=== PATIENT | female | born 1965 | race African-American/Black ===

== ENCOUNTER → 2017-07-08 | Outpatient (POV) | payer OTHER, SELFPAY | PROVIDERS: Visit Provider Podiatrist ==

== ENCOUNTER 2017-08-12 13:57 | Emergency (ER) | payer OTHER, SELFPAY | END 2017-08-12 16:49 | disposition home or self-care (01) | PROVIDERS: Emergency Provider Emergency Medicine; Family Provider Family Medicine; Visit Provider Emergency Medicine | DX: R11.2 Nausea with vomiting, unspecified (principal); K59.00 Constipation, unspecified; R51 Headache; E11.9 Type 2 diabetes mellitus without complications; I10 Essential (primary) hypertension; Z79.890 Hormone replacement therapy; Z79.84 Long term (current) use of oral hypoglycemic drugs; Z79.899 Other long term (current) drug therapy; E78.5 Hyperlipidemia, unspecified; Z79.891 Long term (current) use of opiate analgesic | CPT/HCPCS: 36415; 71010; 80053; 81001; 83605; 84484; 85025; 87040; 87086; 87275; 87276; 93005; 93041; 96365; 96375; 99284; J2405 ==

== ENCOUNTER → 2017-08-19 | Outpatient (POV) | payer OTHER, SELFPAY | PROVIDERS: Visit Provider Podiatrist ==

== ENCOUNTER 2017-09-21 18:32 | Emergency (ER) | payer OTHER, SELFPAY ==
[2017-09-21 19:02] VITALS: BP 106/63; PULSE 112; RESP 20; TEMP 37.7; O2SAT 97; BMI 32.9
--- NOTE | 2017-09-21 19:16 | HMH.EDUTC ---
[facility] Disposition Clinical Impression: Viral syndrome Disposition: Home, Self-Care Condition on Discharge: Good Instructions: DI for Nausea -- Adult, DI for Vomiting -- Adult, DI for Fever (Symptom) -- Adult Additional Instructions: * Monitor Temp. Tylenol and/or Ibuprofen as needed. ER if fever is no less than 101 despite alternating Tylenol and Ibuprofen * Encourage fluids, water, Gatorade, powerade, pedialyte if /toddler/or child * Warm salt water gargles for throat irritation *Warm fluids *Sore throat lozenges *Sleep elevated *humidifier or vaporizer Lots of rest Increase fluids, water, Gatorade, powerade ? Drink extra fluids with and between meals. If you have difficulty drinking, try very small amounts of water or suck on ice chips. ? Avoid fruit juices, as these do not replace minerals and can actually increase diarrhea. ? Children and adults can use sports drinks to replenish electrolytes. Younger children and infants should use products formulated for children, like oral rehydration solutions. ? Eat food in small amounts and let your stomach recover. ? Get lots of rest. You may feel tired or weak. Follow up with family doctor if symptoms worsen or fever does not go away tomorrow Prescriptions: Dextromethorphan Polistirex [Delsym] 10 ml PO Q12H PRN #200 jaspreet.er.12h PRN Reason: Cough Ondansetron [Zofran 4mg ODT] 4 mg PO Q8H PRN #20 tab.rapdis PRN Reason: Nausea And Vomiting Referrals: Luis Rivera MD [Primary Care Provider] - Forms: Work/School Release Time of Disposition: 19:58 Medical Decision Making - Medical Records Medical records reviewed: Yes: I reviewed the patient's medical records. Vital Signs: 09/21/17 19:02 Temperature 99.9 F H Temperature Source Oral Pulse Rate [Right] 112 H Respiratory Rate 20 Blood Pressure [Right Arm] 106/63 Blood Pressure Mean [Right Arm] 77 Blood Pressure Source [Right Arm] Automatic Cuff Blood Pressure Position [Right Arm] Sitting 02 Sat by Pulse Oximetry 97 Oxygen Delivery Method Room Air - Lab Data Lab Results 09/21/17 19:27: Influenza Type A Ag Negative, Influenza Type B Ag Negative - Fly Inquiry Pt receiving controlled substance: No Fly was queried for this patient: No - Reevaluation(s) Time: 19:55 (No vomiting since arrival) [facility] HPI - General Stated complaint: Fever,chills,vomiting Mode of Arrival: Ambulatory Source of Information: Patient Limitations: No Limitations Description of Symptoms (Recalled from Triage Doc. by RN): FEVER, BODY ACHES, VOMITING BEGAN LAST NIGHT HEENT Symptoms (Recalled from RN notes): Yes Resp Symptoms (Recalled from RN notes): No Skin Symptoms (Recalled from RN notes): No MS Symptoms (Recalled from RN notes): No Functional Status (Recalled from RN notes): N - History of Present Illness Provider Complaint: Patient states that she has been having flu like symptoms since yesterday State that she has been having fever, chills, and vomiting State that this morning her fever was 101.0 State that she took Tylenol and it helped to bring it down State that later on today her fever went back up and she had to take medication again for fever States that he nephew had the flu last week and she thinks she may have it too - Related Data Home Medications Medication Instructions Recorded Confirmed Atenolol [Atenolol 50mg Tab] 50 mg PO DAILY 09/21/17 09/21/17 Atorvastatin Calcium [Atorvastatin 20 mg PO DAILY 09/21/17 09/21/17 20mg Tab] Dapagliflozin Propanediol [Farxiga] 10 mg PO DAILY 09/21/17 09/21/17 Gabapentin [Gabapentin 300mg Cap] 300 mg PO DAILY 09/21/17 09/21/17 Lisinopril [Lisinopril 20mg Tab] 20 mg PO DAILY 09/21/17 09/21/17 Metformin HCl [Metformin 500mg 0 mg PO DAILY 09/21/17 09/21/17 Tablet] Previous Rx's Medication Instructions Recorded Dextromethorphan Polistirex 10 ml PO Q12H PRN #200 jaspreet.er.12h 09/21/17 [Delsym] Ondansetron [Zofran 4mg ODT] 4 mg PO Q8H PRN #20 ta
--- NOTE | 2017-09-21 19:23 | ED_ITS ---
[facility] Disposition Clinical Impression: Viral syndrome Disposition: Home, Self-Care Condition on Discharge: Good Instructions: DI for Nausea -- Adult, DI for Vomiting -- Adult, DI for Fever ( Symptom) -- Adult Additional Instructions: * Monitor Temp. Tylenol and/or Ibuprofen as needed. ER if fever is no less than 101 despite alternating Tylenol and Ibuprofen * Encourage fluids, water, Gatorade, powerade, pedialyte if infant/toddler/or child * Warm salt water gargles for throat irritation *Warm fluids *Sore throat lozenges *Sleep elevated *humidifier or vaporizer Lots of rest Increase fluids, water, Gatorade, powerade ? Drink extra fluids with and between meals. If you have difficulty drinking, try very small amounts of water or suck on ice chips. ? Avoid fruit juices, as these do not replace minerals and can actually increase diarrhea. ? Children and adults can use sports drinks to replenish electrolytes. Younger children and infants should use products formulated for children, like oral rehydration solutions. ? Eat food in small amounts and let your stomach recover. ? Get lots of rest. You may feel tired or weak. Follow up with family doctor if symptoms worsen or fever does not go away tomorrow Prescriptions: Dextromethorphan Polistirex [Delsym] 10 ml PO Q12H PRN #200 jaspreet.er.12h PRN Reason: Cough Ondansetron [Zofran 4mg ODT] 4 mg PO Q8H PRN #20 tab.rapdis PRN Reason: Nausea And Vomiting Referrals: Luis Rivera MD [Primary Care Provider] - Forms: Work/School Release Time of Disposition: 19:58 Medical Decision Making - Medical Records Medical records reviewed: Yes: I reviewed the patient's medical records. Vital Signs: 09/21/17 19:02 Temperature 99.9 F H Temperature Source Oral Pulse Rate [Right] 112 H Respiratory Rate 20 Blood Pressure [Right Arm] 106/63 Blood Pressure Mean [Right Arm] 77 Blood Pressure Source [Right Arm] Automatic Cuff Blood Pressure Position [Right Arm] Sitting 02 Sat by Pulse Oximetry 97 Oxygen Delivery Method Room Air - Lab Data Lab Results 09/21/17 19:27: Influenza Type A Ag Negative, Influenza Type B Ag Negative - Fly Inquiry Pt receiving controlled substance: No Fly was queried for this patient: No - Reevaluation(s) Time: 19:55 (No vomiting since arrival) [facility] HPI - General Stated complaint: Fever,chills,vomiting Mode of Arrival: Ambulatory Source of Information: Patient Limitations: No Limitations Description of Symptoms (Recalled from Triage Doc. by RN): FEVER, BODY ACHES, VOMITING BEGAN LAST NIGHT HEENT Symptoms (Recalled from RN notes): Yes Resp Symptoms (Recalled from RN notes): No Skin Symptoms (Recalled from RN notes): No MS Symptoms (Recalled from RN notes): No Functional Status (Recalled from RN notes): N - History of Present Illness Provider Complaint: Patient states that she has been having flu like symptoms since yesterday State that she has been having fever, chills, and vomiting State that this morning her fever was 101.0 State that she took Tylenol and it helped to bring it down State that later on today her fever went back up and she had to take medication again for fever States that he nephew had the flu last week and she thinks she may have it too - Related Data Home Medications Medication Instructions Recorded Confirmed Atenolol [Atenolol 50mg Tab] 50 mg PO DAILY 09/21/17 09/21/17 Atorva
[2017-09-21 19:51] LABS: UTC Influenza A Antigen Negative (Negative); UTC Influenza B Antigen Negative (Negative)
== END 2017-09-21 20:15 | disposition home or self-care (01) ==
PROVIDERS: Emergency Provider Nurse Practitioner; PCP Family Medicine
DX: B34.9 Viral infection, unspecified (principal); E10.9 Type 1 diabetes mellitus without complications; Z79.84 Long term (current) use of oral hypoglycemic drugs; Z79.899 Other long term (current) drug therapy
CPT/HCPCS: 87804; 99201

== ENCOUNTER → 2017-09-23 07:38 | Outpatient (CLI) | payer OTHER, SELFPAY ==
--- NOTE | 2017-09-23 07:43 | US_ITS ---
Ultrasound abdomen limited HISTORY: Fever and upper abdominal pain with vomiting ITS.REASON: UPPER ABD PAIN ORDERING PHYSICIAN: Cody Ulrich PATIENT AGE: 51 years COMPARISON: None FINDINGS: PANCREAS: Unremarkable. No obvious mass or abnormal fluid collection. No ductal dilatation LIVER: No focal liver lesions demonstrated. Homogeneous echogenicity. No intrahepatic biliary ductal dilatation evident RIGHT KIDNEY: Unremarkable. Normal size and echogenicity. No hydronephrosis GALLBLADDER: Gallbladder appears contracted with wall upper limits of normal at 3 mm. No stones, pericholecystic fluid, or biliary dilatation. IMPRESSION: Contracted gallbladder, no stones or other significant anomalies
[2017-09-23 12:22] LABS: Basophils % 0.6 % (0.1-2.0); Eosinophils % 0.3 % (0.1-12.0); Hematocrit 39.6 % (37.0-47.0); Hemoglobin 12.5 g/dL (12.2-16.2); Lymphocytes # 1.8 K/mm3 (0.7-4.5); Lymphocytes % 56.7 K/mm3 (10-50); Mean Corpuscular HGB Conc 31.5 g/dL (31.8-35.4); Mean Corpuscular Hemoglobin 24.8 pg (27.0-31.2); Mean Corpuscular Volume 78.8 fl (81-99); Mean Platelet Volume 8.3 fl (7.4-10.4); Monocytes # 0.3 K/mm3 (0.1-1.0); Neutrophils # 1.1 K/mm3 (1.8-7.8); Neutrophils % 34.3 % (37.0-80.0); Platelet Count 237 K/mm3 (142-424); Red Blood Count 5.02 M/mm3 (4.20-5.40); Red Cell Distribution Width 15.5 % (11.5-17.5); White Blood Count 3.2 K/mm3 (4.8-10.8)
[2017-09-23 12:25] LABS: MANUAL DIFFERENTIAL MANUAL DIFFERENTIAL (MANUAL DIFF)
[2017-09-23 13:16] LABS: Alanine Aminotransferase 32 U/L (12-78); Albumin Level 3.8 gm/dL (3.4-5.0); Alkaline Phosphatase 64 U/L (46-116); Aspartate Amino Transferase 28 U/L (15-37); Bilirubin,Total 0.7 mg/dL (0.2-1.0); Blood Urea Nitrogen 16 mg/dL (7-18); Calcium 8.5 mg/dL (8.5-10.1); Carbon Dioxide 29 mmol/L (21.0-32.0); Chloride 99 mmol/L (98-107); Creatinine,Serum 1.01 mg/dL (0.55-1.02); Estimated Glomerular Filt Rate 58 ml/min (>60); GFR (African American) 70 ML/MIN (>60); Glucose 108 mg/dL (74-106); Sodium 136 mmol/L (136-145); Total Protein,Serum 7.8 gm/dL (6.4-8.2)
[2017-09-23 13:42] LABS: Lymphocytes % 42 % (10-50); Monocytes % 19 % (2-9); Neutrophils % 39 % (42-76); Platelet Estimate Normal; RBC Morphology Normal; Total Cells Counted 100
== END ==
PROVIDERS: Nurse Practitioner Family; PCP Family Medicine; Visit Provider Physician Assistant Medical
DX: R10.10 Upper abdominal pain, unspecified (principal); R50.9 Fever, unspecified; R53.1 Weakness
CPT/HCPCS: 36415; 76705; 80053; 85007; 85025

== ENCOUNTER → 2017-09-29 16:31 | Outpatient (CLI) | payer OTHER, SELFPAY ==
[2017-09-29 16:51] LABS: Basophils % 0.7 % (0.1-2.0); Eosinophils % 1.5 % (0.1-12.0); Hematocrit 37.7 % (37.0-47.0); Hemoglobin 11.5 g/dL (12.2-16.2); Lymphocytes # 1.2 K/mm3 (0.7-4.5); Lymphocytes % 43.7 K/mm3 (10-50); Mean Corpuscular HGB Conc 30.4 g/dL (31.8-35.4); Mean Corpuscular Hemoglobin 24.1 pg (27.0-31.2); Mean Corpuscular Volume 79.3 fl (81-99); Mean Platelet Volume 8.2 fl (7.4-10.4); Monocytes # 0.1 K/mm3 (0.1-1.0); Neutrophils # 1.4 K/mm3 (1.8-7.8); Neutrophils % 49.1 % (37.0-80.0); Platelet Count 218 K/mm3 (142-424); Red Blood Count 4.76 M/mm3 (4.20-5.40); Red Cell Distribution Width 15.6 % (11.5-17.5); White Blood Count 2.8 K/mm3 (4.8-10.8)
[2017-09-29 19:15] LABS: Alanine Aminotransferase 50 U/L (12-78); Albumin Level 3.9 gm/dL (3.4-5.0); Alkaline Phosphatase 76 U/L (46-116); Anion Gap 9.2 mEq/L (5-15); Aspartate Amino Transferase 34 U/L (15-37); Bilirubin,Total 0.9 mg/dL (0.2-1.0); Blood Urea Nitrogen 11 mg/dL (7-18); Carbon Dioxide 33 mmol/L (21.0-32.0); Chloride 103 mmol/L (98-107); Creatinine,Serum 0.78 mg/dL (0.55-1.02); Estimated Glomerular Filt Rate 78 ml/min (>60); GFR (African American) 94 ML/MIN (>60); Globulin 3.9 gm/dl (1.3-3.2); Glucose 126 mg/dL (74-106); Potassium 4.2 mmoL/L (3.5-5.1); Sodium 141 mmol/L (136-145); Total Protein,Serum 7.8 gm/dL (6.4-8.2)
== END ==
PROVIDERS: PCP Family Medicine; Visit Provider Nurse Practitioner Family
DX: R50.9 Fever, unspecified (principal); R53.1 Weakness
CPT/HCPCS: 36415; 80053; 85025

== ENCOUNTER → 2017-10-07 16:24 | Outpatient (CLI) | payer OTHER, SELFPAY ==
[2017-10-07 16:34] LABS: Basophils % 0.6 % (0.1-2.0); Eosinophils # 0.1 K/mm3 (0.0-0.4); Eosinophils % 1.6 % (0.1-12.0); Hematocrit 38.9 % (37.0-47.0); Hemoglobin 11.7 g/dL (12.2-16.2); Lymphocytes # 2.4 K/mm3 (0.7-4.5); Lymphocytes % 54.6 K/mm3 (10-50); Mean Corpuscular HGB Conc 30.1 g/dL (31.8-35.4); Mean Corpuscular Hemoglobin 24.1 pg (27.0-31.2); Mean Platelet Volume 7.5 fl (7.4-10.4); Monocytes # 0.2 K/mm3 (0.1-1.0); Monocytes % 5.3 % (1.7-9.3); Neutrophils # 1.7 K/mm3 (1.8-7.8); Platelet Count 389 K/mm3 (142-424); Red Blood Count 4.86 M/mm3 (4.20-5.40); White Blood Count 4.3 K/mm3 (4.8-10.8)
[2017-10-07 16:39] LABS: MANUAL DIFFERENTIAL MANUAL DIFFERENTIAL (MANUAL DIFF)
[2017-10-07 19:19] LABS: Eosinophils % 2 % (0-3); Lymphocytes % 52 % (10-50); Monocytes % 4 % (2-9); Neutrophils % 38 % (42-76); Platelet Estimate Normal; Total Cells Counted 100
[2017-10-07 19:20] LABS: Hypochromasia 1+; Rouleaux 1+
[2017-10-09 16:26] LABS: Peripheral Smear Review Scanned Result
== END ==
PROVIDERS: PCP Family Medicine; Visit Provider Family Medicine
DX: D72.819 Decreased white blood cell count, unspecified (principal)
CPT/HCPCS: 36415; 85007; 85025

== ENCOUNTER → 2018-02-28 09:41 | Outpatient (CLI) | payer OTHER, SELFPAY ==
[2018-02-28 10:09] LABS: Basophils % 0.9 % (0.1-2.0); Eosinophils # 0.2 K/mm3 (0.0-0.4); Hematocrit 45.8 % (37.0-47.0); Hemoglobin 13.5 g/dL (12.2-16.2); Lymphocytes % 56.6 K/mm3 (10-50); Mean Corpuscular HGB Conc 29.4 g/dL (31.8-35.4); Mean Corpuscular Hemoglobin 23.5 pg (27.0-31.2); Mean Corpuscular Volume 79.8 fl (81-99); Mean Platelet Volume 7.9 fl (7.4-10.4); Monocytes # 0.2 K/mm3 (0.1-1.0); Monocytes % 5.4 % (1.7-9.3); Neutrophils # 1.1 K/mm3 (1.8-7.8); Neutrophils % 32.1 % (37.0-80.0); Platelet Count 284 K/mm3 (142-424); Red Blood Count 5.75 M/mm3 (4.20-5.40); Red Cell Distribution Width 15.6 % (11.5-17.5); White Blood Count 3.5 K/mm3 (4.8-10.8)
[2018-02-28 10:20] LABS: MANUAL DIFFERENTIAL MANUAL DIFFERENTIAL (MANUAL DIFF)
[2018-02-28 11:03] LABS: Alanine Aminotransferase 33 U/L (12-78); Albumin Level 3.9 gm/dL (3.4-5.0); Alkaline Phosphatase 113 U/L (46-116); Anion Gap 13.9 mEq/L (5-15); Aspartate Amino Transferase 25 U/L (15-37); Bilirubin,Total 0.9 mg/dL (0.2-1.0); Blood Urea Nitrogen 18 mg/dL (7-18); Calcium 9.2 mg/dL (8.5-10.1); Carbon Dioxide 29 mmol/L (21.0-32.0); Chloride 102 mmol/L (98-107); Creatinine,Serum 0.85 mg/dL (0.55-1.02); Estimated Glomerular Filt Rate 70 ml/min (>60); GFR (African American) 85 ML/MIN (>60); Globulin 4.1 gm/dl (1.3-3.2); Glucose 105 mg/dL (74-106); Potassium 3.9 mmoL/L (3.5-5.1); Sodium 141 mmol/L (136-145)
[2018-02-28 13:31] LABS: Eosinophils % 6 % (0-3); Lymphocytes % 51 % (10-50); Monocytes % 19 % (2-9); Neutrophils % 24 % (42-76); Total Cells Counted 100
[2018-02-28 13:33] LABS: Platelet Estimate Normal
[2018-02-28 13:34] LABS: Hypochromasia 2+; Microcytosis 1+
[2018-03-02 09:02] LABS: C difficile Toxins AB, EIA Negative (Negative)
== END ==
PROVIDERS: Visit Provider Nurse Practitioner Family
DX: R19.7 Diarrhea, unspecified (principal); R50.9 Fever, unspecified
CPT/HCPCS: 36415; 80053; 85007; 85025; 87045; 87324

== ENCOUNTER → 2018-04-12 17:20 | Outpatient (CLI) | payer OTHER, SELFPAY ==
[2018-04-12 17:27] LABS: MANUAL DIFFERENTIAL MANUAL DIFFERENTIAL (MANUAL DIFF)
[2018-04-12 17:57] LABS: Basophils % 0.6 % (0.1-2.0); Eosinophils # 0.1 K/mm3 (0.0-0.4); Eosinophils % 1.7 % (0.1-12.0); Hematocrit 39.1 % (37.0-47.0); Hemoglobin 12.1 g/dL (12.2-16.2); Lymphocytes # 2.2 K/mm3 (0.7-4.5); Lymphocytes % 50.6 K/mm3 (10-50); Mean Corpuscular Hemoglobin 24.4 pg (27.0-31.2); Mean Corpuscular Volume 78.9 fl (81-99); Monocytes # 0.3 K/mm3 (0.1-1.0); Monocytes % 5.9 % (1.7-9.3); Neutrophils # 1.8 K/mm3 (1.8-7.8); Neutrophils % 41.3 % (37.0-80.0); Platelet Count 282 K/mm3 (142-424); Red Blood Count 4.96 M/mm3 (4.20-5.40); Red Cell Distribution Width 17.4 % (11.5-17.5); White Blood Count 4.4 K/mm3 (4.8-10.8)
[2018-04-12 20:41] LABS: Eosinophils % 2 % (0-3); Lymphocytes % 51 % (10-50); Monocytes % 5 % (2-9); Neutrophils % 39 % (42-76); Platelet Estimate Normal; RBC Morphology Normal; Total Cells Counted 100
[2018-04-14 17:23] LABS: Peripheral Smear Review Scanned Result
== END ==
PROVIDERS: Visit Provider Family Medicine
DX: D72.819 Decreased white blood cell count, unspecified (principal)
CPT/HCPCS: 36415; 85007; 85014; 85018; 85048; 85049

== ENCOUNTER → 2018-06-15 16:23 | Outpatient (CLI) | payer OTHER, SELFPAY ==
--- NOTE | 2018-06-15 16:26 | NVE_ITS ---
Venous Exam Indications: 729.5 Pain in limb. IMPRESSIONS 1. There is no evidence of significant Reflux. 2. No evidence of deep or superficial vein thrombosis involving the right lower extremity Right lower extremity venous duplex evaluation. Doppler flow study including spectral analysis, color and mccann scale imaging. Location: Vascular laboratory. Patient status: Outpatient. CRITICAL FINDINGS - Reported to: tom - Read back and verified. - 06/15/18 0096 - None Tables: Venous flow and imaging: + +-------+ + Location Overall Flow properties + +-------+ + Right common femoral Patent Normal phasicity; spontaneous; normal augmentation; compressible + +-------+ + Right saphenofemoral junction Patent Compressible + +-------+ + Right profunda femoral Patent Compressible + +-------+ + Right femoral Patent Normal phasicity; spontaneous; normal augmentation; compressible + +-------+ + Right greater saphenous Patent Normal phasicity; spontaneous; normal augmentation; compressible + +-------+ + Right popliteal Patent Normal phasicity; spontaneous; normal augmentation; compressible + +-------+ + Right posterior tibial Patent Compressible + +-------+ + Right peroneal Patent Compressible + +-------+ + Right gastrocnemius Patent Compressible + +-------+ + Right soleal Patent Compressible + +-------+ + (Report amended ) Electronically signed by: Wil Barr [id number]
[2018-06-15 18:02] LABS: Basophils % 0.7 % (0.1-2.0); Eosinophils # 0.1 K/mm3 (0.0-0.4); Eosinophils % 1.2 % (0.1-12.0); Hematocrit 38.2 % (37.0-47.0); Hemoglobin 11.7 g/dL (12.2-16.2); Lymphocytes # 3.6 K/mm3 (0.7-4.5); Lymphocytes % 59.8 K/mm3 (10-50); Mean Corpuscular HGB Conc 30.6 g/dL (31.8-35.4); Mean Corpuscular Hemoglobin 25.3 pg (27.0-31.2); Mean Corpuscular Volume 82.6 fl (81-99); Mean Platelet Volume 7.1 fl (7.4-10.4); Monocytes # 0.2 K/mm3 (0.1-1.0); Monocytes % 3.9 % (1.7-9.3); Neutrophils # 2.1 K/mm3 (1.8-7.8); Neutrophils % 34.5 % (37.0-80.0); Platelet Count 296 K/mm3 (142-424); Red Blood Count 4.62 M/mm3 (4.20-5.40); Red Cell Distribution Width 16.9 % (11.5-17.5); White Blood Count 5.9 K/mm3 (4.8-10.8)
[2018-06-15 18:04] LABS: MANUAL DIFFERENTIAL MANUAL DIFFERENTIAL (MANUAL DIFF)
[2018-06-15 18:23] LABS: D-Dimer < 100 ng/mL (0-400)
[2018-06-15 18:59] LABS: Eosinophils % 3 % (0-3); Lymphocytes % 66 % (10-50); Monocytes % 4 % (2-9); Neutrophils % 27 % (42-76); Total Cells Counted 100
[2018-06-15 19:04] LABS: Hypochromasia 1+; Platelet Estimate Normal
== END ==
PROVIDERS: PCP Nurse Practitioner Family; Visit Provider Nurse Practitioner Family
DX: M79.604 Pain in right leg (principal); M79.89 Other specified soft tissue disorders; R23.8 Other skin changes
CPT/HCPCS: 36415; 85007; 85025; 85378; 93971

== ENCOUNTER → 2018-06-17 11:49 | Outpatient (CLI) | payer OTHER, SELFPAY ==
[2018-06-17 13:14] LABS: Alanine Aminotransferase 40 U/L (12-78); Alkaline Phosphatase 100 U/L (46-116); Anion Gap 10.5 mEq/L (5-15); Aspartate Amino Transferase 56 U/L (15-37); Bilirubin,Total 0.9 mg/dL (0.2-1.0); Blood Urea Nitrogen 19 mg/dL (7-18); Calcium 9.2 mg/dL (8.5-10.1); Carbon Dioxide 32 mmol/L (21.0-32.0); Chloride 103 mmol/L (98-107); Creatinine,Serum 0.97 mg/dL (0.55-1.02); Estimated Glomerular Filt Rate 60 ml/min (>60); GFR (African American) 73 ML/MIN (>60); Glucose 122 mg/dL (74-106); Magnesium 2.1 mg/dL (1.4-2.2); Potassium 4.5 mmoL/L (3.5-5.1); Sodium 141 mmol/L (136-145); Thyroid Stimulating Hormone 0.75 uIU/ml (0.358-3.740)
[2018-06-19 17:18] LABS: Antinuclear Antibodies, IFA Negative (.)
== END ==
PROVIDERS: PCP Nurse Practitioner Family; Visit Provider Nurse Practitioner Family
DX: M79.89 Other specified soft tissue disorders (principal); M79.604 Pain in right leg; R23.8 Other skin changes
CPT/HCPCS: 36415; 80053; 83735; 84443; 86038

== ENCOUNTER → 2018-07-17 18:37 | Outpatient (CLI) | payer OTHER, SELFPAY | PROVIDERS: Visit Provider Podiatrist | DX: B35.1 Tinea unguium (principal) | CPT/HCPCS: 87102; 87206; 87220 ==

== ENCOUNTER → 2018-07-18 09:52 | Outpatient (POV) | payer OTHER, SELFPAY | PROVIDERS: Visit Provider Dermatology | DX: Z00.00 Encounter for general adult medical examination without abnormal findings (principal) ==

== ENCOUNTER → 2018-08-10 14:36 | Outpatient (CLI) | payer SELFPAY ==
[2018-08-10 16:12] LABS: Erythrocyte Sedimentation Rate 22 mm/hr (0-30)
[2018-08-10 17:09] LABS: Uric Acid 4.2 mg/dL (2.6-7.2)
[2018-08-14 11:12] LABS: Anti-Centromere B Antibodies <0.2 AI (0.0-0.9); Anti-Jo-1 <0.2 AI (0.0-0.9); Anti-Smith Antibody <0.2 AI (0.0-0.9); Antichromatin Antibodies 0.3 AI (0.0-0.9); Antiscleroderma-70 Antibodies <0.2 AI (0.0-0.9); RNP Antibodies 0.4 AI (0.0-0.9); Sjogren's Anti-SS-A <0.2 AI (0.0-0.9); Sjogren's Anti-SS-B <0.2 AI (0.0-0.9)
[2018-08-14 14:58] LABS: Anti-DNA (DS) Ab Qn 4 IU/mL (0-9)
[2018-08-15 06:00] LABS: Anti-Cyclic Citrullinated Pept 6 units (0-19)
== END ==
PROVIDERS: Visit Provider Internal Medicine Adolescent Medicine
DX: M19.90 Unspecified osteoarthritis, unspecified site (principal)
CPT/HCPCS: 36415; 84550; 85651; 86038; 86200; 86225; 86235; 86431

== ENCOUNTER → 2018-08-28 09:17 | Outpatient (CLI) | payer OTHER, SELFPAY ==
--- NOTE | 2018-08-28 09:31 | XR_ITS ---
EXAM: XR lumbar spine min 4V HISTORY: ITS.REASON: BACK PAIN ORDERING PHYSICIAN: Cherelle Bryant PATIENT AGE: 52 years COMPARISON: None FINDINGS: There is straightening of the normal curvature in the thoracolumbar region suggesting muscle spasm. There are mild degenerative changes lower thoracic spine. All lumbar vertebrae appear intact and disc spaces are well maintained throughout. There is no pars defect. There is minor anterior and lateral ossific spurring at the L3-4 level and minor anterior ossific spurring at L5-S1 level. The SI joints are normal. . IMPRESSION: Findings suggesting muscle spasm along with minor degenerative changes lower lumbar spine
== END ==
PROVIDERS: PCP Nurse Practitioner Family; Visit Provider Nurse Practitioner Family
DX: M54.9 Dorsalgia, unspecified (principal)
CPT/HCPCS: 72110

== ENCOUNTER → 2018-12-08 13:20 | Outpatient (CLI) | payer BC, SELFPAY ==
--- NOTE | 2018-12-08 13:24 | XR_ITS ---
XR chest 2V HISTORY: ITS.REASON: HEMOPTYSIS ORDERING PHYSICIAN: Arsenio Schwartz MD PATIENT AGE: 53 years COMPARISON: 12/18/2017 FINDINGS: The cardiomediastinal silhouette and pulmonary vascularity are within normal limits. There are calcified granulomas in the left upper lobe. Right hemidiaphragm is slightly elevated. No lobar consolidation or collapse. No acute bony findings. IMPRESSION: No change with no acute finding.
== END ==
PROVIDERS: PCP Internal Medicine Adolescent Medicine; Visit Provider Internal Medicine Adolescent Medicine
DX: R04.2 Hemoptysis (principal)
CPT/HCPCS: 71046

== ENCOUNTER → 2018-12-29 17:12 | Outpatient (CLI) | payer BC, SELFPAY ==
[2018-12-29 17:51] LABS: Hemoglobin A1C 7.9 % (0.0-7.0)
[2018-12-29 18:21] LABS: Alanine Aminotransferase 24 U/L (12-78); Albumin Level 4.1 gm/dL (3.4-5.0); Alkaline Phosphatase 90 U/L (46-116); Anion Gap 9.6 mEq/L (5-15); Aspartate Amino Transferase 15 U/L (15-37); Bilirubin,Total 0.9 mg/dL (0.2-1.0); Blood Urea Nitrogen 13 mg/dL (7-18); Calcium 9.2 mg/dL (8.5-10.1); Carbon Dioxide 32 mmol/L (21.0-32.0); Chloride 101 mmol/L (98-107); Creatinine,Serum 0.94 mg/dL (0.55-1.02); Estimated Glomerular Filt Rate 62 ml/min (>60); GFR (African American) 75 ML/MIN (>60); Globulin 4.1 gm/dl (1.3-3.2); Glucose 128 mg/dL (74-106); Magnesium 1.9 mg/dL (1.4-2.2); Potassium 3.6 mmoL/L (3.5-5.1); Sodium 139 mmol/L (136-145); Thyroid Stimulating Hormone 1.14 uIU/ml (0.358-3.740); Total Protein,Serum 8.2 gm/dL (6.4-8.2)
== END ==
PROVIDERS: Visit Provider Internal Medicine Adolescent Medicine
DX: E11.9 Type 2 diabetes mellitus without complications (principal); Z79.84 Long term (current) use of oral hypoglycemic drugs
CPT/HCPCS: 36415; 80053; 83036; 83735; 84443

== ENCOUNTER → 2019-03-11 09:08 | Outpatient (CLI) | payer BC, SELFPAY ==
[2019-03-11 09:42] LABS: Alanine Aminotransferase 34 U/L (12-78); Albumin Level 3.6 gm/dL (3.4-5.0); Albumin/Globulin Ratio 1.1 (1.1-1.8); Alkaline Phosphatase 92 U/L (46-116); Anion Gap 11.1 mEq/L (5-15); Aspartate Amino Transferase 29 U/L (15-37); Bilirubin,Total 0.7 mg/dL (0.2-1.0); Blood Urea Nitrogen 14 mg/dL (7-18); Calcium 8.9 mg/dL (8.5-10.1); Carbon Dioxide 30 mmol/L (21.0-32.0); Chloride 103 mmol/L (98-107); Chol/HDL Ratio 1.7 (1-3.5); Cholesterol 177 mg/dL (140-200); Creatinine,Serum 0.79 mg/dL (0.55-1.02); Estimated Glomerular Filt Rate 76 ml/min (>60); GFR (African American) 92 ML/MIN (>60); Globulin 3.4 gm/dl (1.3-3.2); Glucose 122 mg/dL (74-106); HDL Cholesterol 106 mg/dL (29-89); LDL Cholesterol 62 mg/dL (0-130); Potassium 4.1 mmoL/L (3.5-5.1); Sodium 140 mmol/L (136-145); Triglycerides 44 mg/dL (30-200); VLDL Cholesterol 9 mg/dL (0-40)
[2019-03-11 09:59] LABS: Hemoglobin A1C 7.4 % (0.0-7.0)
[2019-03-11 11:12] LABS: Adenovirus F 40/41, stool Not Detected (NotDetected); Astrovirus Not Detected (NotDetected); Campylobacter Not Detected (NotDetected); Clostridium Difficile A/B, PCR Not Detected (NotDetected); Cryptosporidium Not Detected (NotDetected); Cyclospora Cayetanesis Not Detected (NotDetected); Entamoeba histolytica Not Detected (NotDetected); Enteroaggregative E coli Not Detected (NotDetected); Enterotoxigenic E coli Not Detected (NotDetected); Giardia lamblia Not Detected (NotDetected); Norovirus Not Detected (NotDetected); Plesimonas Shigalloides, PCR Not Detected (NotDetected); Rotavirus A Not Detected (NotDetected); Salmonella, PCR Not Detected (NotDetected); Sapovirus Not Detected (NotDetected); Shiga-like toxin E coli Not Detected (NotDetected); Shigella Enterovasive E coli Not Detected (NotDetected); Vibrio Cholerae Not Detected (NotDetected); Vibrio, PCR Not Detected (NotDetected); Yersinia Entercolitica, PCR Not Detected (NotDetected)
[2019-03-11 13:54] LABS: Enteropathogenic E coli Detected (NotDetected)
== END ==
PROVIDERS: PCP Internal Medicine Adolescent Medicine; Visit Provider Nurse Practitioner Family
DX: Z00.00 Encounter for general adult medical examination without abnormal findings (principal); E11.9 Type 2 diabetes mellitus without complications; A09 Infectious gastroenteritis and colitis, unspecified; Z79.84 Long term (current) use of oral hypoglycemic drugs
CPT/HCPCS: 36415; 80053; 80061; 83036; 87507

== ENCOUNTER → 2019-05-04 15:23 | Outpatient (CLI) | payer BC, SELFPAY ==
--- NOTE | 2019-05-04 15:38 | MM_ITS ---
PROCEDURE: MM DIG SCREENING MAMM BI W/CAD CLINICAL INDICATION: SCREENING There is no personal or family history of breast cancer. There has been previous bilateral breast reduction surgery. COMPARISON: SCREENING MAMMO DIGITAL W/ CAD from 07/15/2015 DMDB DIG MAMM-DX MERE from 05/14/2016 DMSB DIG MAMM-SCREEN MERE W/CAD from 07/08/2017 TECHNIQUE: Standard CC and MLO images were obtained. R2 CAD reviewed. FINDINGS: Scattered fibroglandular densities are seen throughout both breasts. There is a mole marker right breast. There are a few scattered benign-appearing microcalcifications in each breast. There is little if any post surgical scarring in either breast. There is no suspicious lesion in either breast and no suspicious microcalcifications. There is no suspicious lesion on the no suspicious microcalcifications. There are several small nodes in both axilla. IMPRESSION: Fibrofatty parenchyma with no suspicious lesions seen BI-RAD Category: 2 Benign Finding(s) FOLLOW-UP: 1YR 1 Year Follow-up (A letter has been sent to the patient regarding results of the study.) Dictated by: Dr. Jaya Brown MD 05/14/2019 17:[address] Jaya Brown MD in [place] 05/14/2019 17:13
== END ==
PROVIDERS: PCP Nurse Practitioner Family; Visit Provider Nurse Practitioner Family
DX: Z12.31 Encounter for screening mammogram for malignant neoplasm of breast (principal)
CPT/HCPCS: 77067

== ENCOUNTER 2019-07-10 17:30 | Outpatient (RCR) | payer BC, SELFPAY ==
--- NOTE | 2019-06-04 17:54 | HMH.PTOPEV ---
PT Outpatient Evaluation Rehab PT Outpatient Evaluation Start: 06/04/19 17:36 Freq: Status: Active Protocol: Document 06/04/19 17:37 [email or web address] (Rec: 06/04/19 17:54 WALLY [id number]) Electronically Signed By Colten Vázquez, PT 06/04/19 17:37 Outpatient Therapy Subjective History Subjective History This is the initial Physical Therapy evaluation for Claudia Jean. Pt is a 53 y/o female referred to PT w/ c/o cervico- thoracic pain and muscle spasms w/ c/io BUE/hand paresthesia. Pt reports she has had issue for years with shoulder and neck pain but reports spasms and paresthesia have been going on for ~ 6 months. Pt has past sx hx of lumbar Chief Complaint Pain,Spasms,Stiff,Paresthesia, Weakness Symptom Type Ache,Throb,Sharp,Dull,Stabbing ,Burning,Numbness,Tingling Symptoms Relieved By Prescription Meds Symptoms Aggravated By Physical Activity Prior Functional Limitations None Current Functional Limitations Lifting,Housework,Desk Work/ Reading,Sleeping,Recreation Activity Symptom Description Intermittent Level of pain today (0-10) 2 Pain scale - at its best (0-10) 0 Pain scale - at its worst (0-10) 7 Cervical Eval Palpation Cervical Muscles R Cervical Paraspinal,L Cervical Paraspinal,R Suboccipital,L Suboccipital,R CT Junction,L CT Junction,R Upper Trapezius,L Upper Trapezius Cervical/Thoracic Palpation Findings Tenderness,Trigger Point, Muscle Guarding Posture Head/C-Spine Posture Sitting Position Extended,Excess Extension Flexibility Deficits Upper Trapezius Muscle Length (R) Moderate Tightness,(L) Moderate Tightness Passive Joint Mobility Cervical PIVM Dec: R C2/3 L C2/3 R C3/4 L C3/4 R C4/5 L C4/5 R C5/6 L C5/6 R C6/7 L C6/7 R C7/T1
== END 2019-07-10 17:35 | disposition home or self-care (01) ==
LOC: PT 17:30
PROVIDERS: PCP Nurse Practitioner Family; Visit Provider Internal Medicine Adolescent Medicine
DX: M70.62 Trochanteric bursitis, left hip (principal)
CPT/HCPCS: 97010; 97012; 97014; 97110; 97140; 97163; G0283

== ENCOUNTER → 2019-07-17 17:38 | Outpatient (CLI) | payer BC, SELFPAY ==
[2019-07-17 18:57] LABS: Alanine Aminotransferase 28 U/L (12-78); Albumin Level 3.9 gm/dL (3.4-5.0); Albumin/Globulin Ratio 1.1 (1.1-1.8); Alkaline Phosphatase 84 U/L (46-116); Anion Gap 11.2 mEq/L (5-15); Aspartate Amino Transferase 21 U/L (15-37); Bilirubin,Total 0.6 mg/dL (0.2-1.0); Blood Urea Nitrogen 17 mg/dL (7-18); Carbon Dioxide 29 mmol/L (21.0-32.0); Chloride 104 mmol/L (98-107); Creatinine,Serum 0.74 mg/dL (0.55-1.02); Estimated Glomerular Filt Rate 82 ml/min (>60); GFR (African American) 99 ML/MIN (>60); Globulin 3.7 gm/dl (1.3-3.2); Glucose 99 mg/dL (74-106); Lipase 148 u/L (73-393); Potassium 4.2 mmoL/L (3.5-5.1); Sodium 140 mmol/L (136-145); Total Protein,Serum 7.6 gm/dL (6.4-8.2)
== END ==
PROVIDERS: Visit Provider Internal Medicine Adolescent Medicine
DX: R10.10 Upper abdominal pain, unspecified (principal)
CPT/HCPCS: 36415; 80053; 83690

== ENCOUNTER → 2019-07-25 07:47 | Outpatient (CLI) | payer BC, SELFPAY ==
--- NOTE | 2019-07-25 07:53 | US_ITS ---
PROCEDURE: US ABDOMEN LIMITED CLINICAL INDICATION: UPPER ABD PAIN Upper abdominal pain with nausea diarrhea COMPARISON: ABD US abdomen limited from 09/23/2017 FINDINGS: PANCREAS: Unremarkable. No obvious mass or abnormal fluid collection. No ductal dilatation LIVER: No focal liver lesions demonstrated. Homogeneous echogenicity. No intrahepatic biliary ductal dilatation evident. There is appropriate direction of blood flow within a non dilated portal vein RIGHT KIDNEY: Unremarkable. Normal size and echogenicity. No hydronephrosis GALLBLADDER: No gallstones, gallbladder wall thickening, pericholecystic fluid, or biliary dilatation. IMPRESSION: Unremarkable limited abdominal ultrasound as detailed above disc Dictated by: Wil Barr MD 07/25/2019 13:06 Electronically signed by Wil Barr MD in [place] 07/25/2019 13:06
== END ==
PROVIDERS: PCP Internal Medicine Adolescent Medicine; Visit Provider Internal Medicine Adolescent Medicine
DX: R10.11 Right upper quadrant pain (principal)
CPT/HCPCS: 76705

== ENCOUNTER → 2019-09-05 07:03 | Outpatient (CLI) | payer BC, SELFPAY ==
[2019-09-05 08:14] LABS: Anion Gap 11.8 mEq/L (5-15); Blood Urea Nitrogen 13 mg/dL (7-18); Calcium 8.6 mg/dL (8.5-10.1); Carbon Dioxide 29 mmol/L (21.0-32.0); Chloride 104 mmol/L (98-107); Estimated Glomerular Filt Rate 75 ml/min (>60); GFR (African American) 91 ML/MIN (>60); Glucose 139 mg/dL (74-106); Potassium 3.8 mmoL/L (3.5-5.1); Sodium 141 mmol/L (136-145)
[2019-09-05 09:07] LABS: Hemoglobin A1C 7.6 % (0.0-7.0)
== END ==
PROVIDERS: Visit Provider Internal Medicine Adolescent Medicine
DX: E11.9 Type 2 diabetes mellitus without complications (principal); Z79.84 Long term (current) use of oral hypoglycemic drugs
CPT/HCPCS: 36415; 80048; 83036; 83735

== ENCOUNTER 2019-09-26 17:30 | Outpatient (RCR) | payer BC, SELFPAY ==
--- NOTE | 2019-09-11 17:57 | HMH.PTOPEV ---
PT Outpatient Evaluation Rehab PT Outpatient Evaluation Start: 09/11/19 17:06 Freq: Status: Active Protocol: Document 09/11/19 17:06 [email or web address] (Rec: 09/11/19 17:57 JIM [id number]) Electronically Signed By Colten Vázquez PT 09/11/19 17:06 Outpatient Therapy Subjective History Subjective History This is the initial Physical Therapy evaluation for Claudia Gallardo. Pt is a 53 y/o female referred to PT for c/o BLE leg cramps and pain. Pt reports she had discectomy [id number] for HNP w/ R side S&S. Pt reports she continued to have pain and paresthesia and in 2015 had sx to remove scar tissue. Pt reports she has had intermittant leg cramps and pain since first surgery. Pt is also diabetic w/ neuropathy . Chief Complaint Pain,Spasms Symptom Type Sharp,Burning,Tingling Symptoms Relieved By Prescription Meds Symptoms Aggravated By Bending/Stooping,Physical Activity,Twisting,Lifting Prior Functional Limitations None Current Functional Limitations Lifting,Housework,Driving, Sleeping,Squatting,Recreation Activity,Walking Symptom Description Intermittent Level of pain today (0-10) 0 Pain scale - at its best (0-10) 0 Pain scale - at its worst (0-10) 9 Lumbopelvic Eval Posture Lumbar Spine Posture Standing Position Flattened Assistive device Assistive Devices None / NA Palapation tenderness bilateral lumbar spinal tenderness Yes paraspinal tenderness Yes buttock tenderness No Accessory Movement L3 bilateral L4 bilateral L5 bilateral Range of Motion Lumbar Spine Active Flexion Range of 90 Motion (degrees) Lumbar Spine Active Extension Range of 0 Motion (degrees) Left Lumbar Spine Lateral Flexion Active 20 Range of Motion (degrees) Right Lumbar Spine Lateral Flexion 5 Active Range of Motion (degrees) Lumbar Spine ROM Limitations Soft Tissue Tightness,Pain DTR Rt Patellar 1+ Lt Patellar 1+ Special Tests Forward Bending Test- Sitting Positive Right Sciatic Nerve Tension Test Positive Right Unilateral Straight Leg Raise (Lasegue) Positive Right Test Lumbar Long A
== END 2019-09-26 17:35 | disposition home or self-care (01) ==
LOC: PT 17:30
PROVIDERS: PCP Internal Medicine Adolescent Medicine; Visit Provider Internal Medicine Adolescent Medicine
DX: M70.62 Trochanteric bursitis, left hip (principal); R25.2 Cramp and spasm
CPT/HCPCS: 97110; 97140; 97163

== ENCOUNTER → 2019-12-13 16:23 | Outpatient (CLI) | payer BC, SELFPAY ==
[2019-12-13 17:44] LABS: Hemoglobin A1C 6.4 % (4.0-6.0)
== END ==
PROVIDERS: Visit Provider Internal Medicine Adolescent Medicine
DX: E11.9 Type 2 diabetes mellitus without complications (principal); Z79.84 Long term (current) use of oral hypoglycemic drugs
CPT/HCPCS: 36415; 83036

== ENCOUNTER → 2020-03-27 12:17 | Outpatient (CLI) | payer BC, SELFPAY ==
[2020-03-27 12:42] LABS: Basophils % 0.5 % (0.1-2.0); Eosinophils # 0.1 K/mm3 (0.0-0.4); Eosinophils % 1.2 % (0.1-12.0); Hematocrit 37.1 % (37.0-47.0); Hemoglobin 11.9 g/dL (12.2-16.2); Lymphocytes # 2.5 K/mm3 (0.7-4.5); Lymphocytes % 51.2 % (10-50); Mean Corpuscular Volume 81.3 fl (81-99); Mean Platelet Volume 8.1 fl (7.4-10.4); Monocytes # 0.2 K/mm3 (0.1-1.0); Neutrophils # 2.1 K/mm3 (1.8-7.8); Neutrophils % 43.1 % (37.0-80.0); Platelet Count 290 K/mm3 (142-424); Red Blood Count 4.57 M/mm3 (4.20-5.40); Red Cell Distribution Width 15.8 % (11.5-17.5); White Blood Count 4.8 K/mm3 (4.8-10.8)
[2020-03-27 12:46] LABS: MANUAL DIFFERENTIAL MANUAL DIFFERENTIAL (MANUAL DIFF)
[2020-03-27 13:11] LABS: Chloride 99 mmol/L (98-107); Hemoglobin A1C 6.7 % (4.0-6.0); Potassium 4.3 mmoL/L (3.5-5.1); Sodium 138 mmol/L (136-145)
[2020-03-27 13:13] LABS: Alanine Aminotransferase 19 U/L (12-78); Alkaline Phosphatase 89 U/L (38-126); Aspartate Amino Transferase 29 U/L (14-36); Bilirubin,Total 0.9 mg/dl (0.2-1.3); Blood Urea Nitrogen 17 mg/dl (7-17); Estimated Glomerular Filt Rate 75 ml/min (>60); GFR (African American) 90 ML/MIN (>60)
[2020-03-27 13:14] LABS: Albumin Level 4.4 g/dl (3.5-5.0); Albumin/Globulin Ratio 1.4 (1.1-1.8); Anion Gap 13.3 mEq/L (5-15); Calcium 9.7 mg/dl (8.4-10.2); Carbon Dioxide 30 mmol/L (22.0-30.0); Globulin 3.2 g/dL (1.3-3.2); Glucose 99 mg/dl (74-100); Total Protein,Serum 7.6 g/dl (6.3-8.2)
[2020-03-27 14:00] LABS: Eosinophils % 2 % (0-3); Lymphocytes % 57 % (10-50); Monocytes % 6 % (2-9); Neutrophils % 35 % (42-76); Total Cells Counted 100
[2020-03-27 14:01] LABS: Platelet Estimate Normal; RBC Morphology Normal
== END ==
PROVIDERS: Visit Provider Internal Medicine Adolescent Medicine
DX: I10 Essential (primary) hypertension (principal); E11.9 Type 2 diabetes mellitus without complications; Z79.84 Long term (current) use of oral hypoglycemic drugs
CPT/HCPCS: 36415; 80053; 83036; 85007; 85025

== ENCOUNTER → 2020-05-16 16:53 | Outpatient (CLI) | payer BC, SELFPAY ==
--- NOTE | 2020-05-16 16:57 | MM_ITS ---
PROCEDURE: MM DIG SCREENING MAMM BI W/CAD Digital Breast Tomosynthesis Included CLINICAL INDICATION: SCREENING There is no personal or family history of breast cancer. There has been previous breast reduction surgery bilaterally. COMPARISON: MG DMDB DIG MAMM-DX MERE from 05/14/2016 CR,MG DMSB DIG MAMM-SCREEN MERE W/CAD from 07/08/2017 MG MM DIG SCREENING MAMM BI W/CAD from 05/04/2019 TECHNIQUE: Standard CC and MLO images and 3D Tomosynthesis was obtained. R2 CAD reviewed. FINDINGS: Prominent diffuse fibroglandular densities are seen throughout both breasts. There is no significant post surgical scarring in either breast. There is a mole marker right breast and there are couple of benign-appearing calcifications right breast. There are few benign-appearing microcalcifications left breast as well. Fabian images are most helpful in this type of diffusely dense and heterogenic parenchymal pattern. There are couple of microcalcifications inner quadrant left breast just slightly deep and medial to the nipple. These are not present on the previous mammogram 05/04/2019. There are asymmetric glandular elements at this location as well. Recommend the patient return for spot compression magnification views and ultrasound for additional evaluation. IMPRESSION: Diffusely dense and heterogenic parenchymal pattern with new microcalcifications left breast BI-RAD Category: 0 Need Additional Imaging Evaluation FOLLOW-UP: IMM Immediate Follow-up Recommended (A letter has been sent to the patient regarding results of the study.) Dictated by: Dr. Jaya Brown MD 05/21/2020 08:08 Dr. Jaya Brown MD in [place] 05/21/2020 08:08
== END ==
PROVIDERS: PCP Internal Medicine Adolescent Medicine; Visit Provider Internal Medicine Adolescent Medicine
DX: Z12.31 Encounter for screening mammogram for malignant neoplasm of breast (principal)
CPT/HCPCS: 77063; 77067

== ENCOUNTER → 2020-05-28 13:31 | Outpatient (CLI) | payer BC, SELFPAY ==
--- NOTE | 2020-05-28 13:40 | US_ITS ---
PROCEDURE: MM DIG MAMM DX UNILAT LT CAD Digital Breast Tomosynthesis Included CLINICAL INDICATION: ABN MAMM COMPARISON: MG SCREENING MAMMO DIGITAL W/ CAD from 07/15/2015 CR,MG DMSB DIG MAMM-SCREEN MERE W/CAD from 07/08/2017 MG MM DIG SCREENING MAMM BI W/CAD from 05/04/2019 MG MM DIG SCREENING MAMM BI W/CAD from 05/16/2020 US US BREAST LT COMPLETE from 05/28/2020 TECHNIQUE: Mag views, problem solving views, and left breast ultrasound FINDINGS: The previously noted small cluster of calcifications are skin calcifications. No suspicious microcalcifications are evident. Left breast ultrasound: No solid or cystic lesions are evident. The areas of nodularity in the upper left breast are not demonstrated on ultrasound and may represent areas of fibroglandular tissue. Small nodes are also present. IMPRESSION: Calcifications in the left breast represent skin calcifications. Recommend six-month follow-up regarding the nodularity in the left breast without sonographic correlate. BI-RAD Category: 3 Probably Benign Finding Short Term Follow-up FOLLOW-UP: 6M 6Month Follow-up (A letter has been sent to the patient regarding results of the study.) Dictated by: Wil Barr MD 06/04/2020 13:50 Wil Barr MD in [place] 06/04/2020 13:50
== END ==
PROVIDERS: PCP Internal Medicine Adolescent Medicine; Visit Provider Internal Medicine Adolescent Medicine
DX: R92.8 Other abnormal and inconclusive findings on diagnostic imaging of breast (principal)
CPT/HCPCS: 76641; 77061; 77065; G0279

== ENCOUNTER → 2020-06-11 17:20 | Outpatient (CLI) | payer BC, SELFPAY | PROVIDERS: Visit Provider Nurse Practitioner | DX: B35.1 Tinea unguium (principal) | CPT/HCPCS: 87102; 87206; 87220 ==

== ENCOUNTER → 2020-06-24 07:37 | Outpatient (CLI) | payer BC, SELFPAY ==
[2020-06-24 08:32] LABS: Chloride 103 mmol/L (98-107); Potassium 4.4 mmoL/L (3.5-5.1); Sodium 140 mmol/L (136-145)
[2020-06-24 08:35] LABS: Alanine Aminotransferase 18 U/L (12-78); Albumin Level 4.3 g/dl (3.5-5.0); Albumin/Globulin Ratio 1.3 (1.1-1.8); Alkaline Phosphatase 76 U/L (38-126); Anion Gap 11.4 mEq/L (5-15); Aspartate Amino Transferase 30 U/L (14-36); Bilirubin,Total 0.7 mg/dl (0.2-1.3); Blood Urea Nitrogen 15 mg/dl (7-17); Carbon Dioxide 30 mmol/L (22.0-30.0); Estimated Glomerular Filt Rate 65 ml/min (>60); GFR (African American) 79 ML/MIN (>60); Globulin 3.3 g/dL (1.3-3.2); Total Protein,Serum 7.6 g/dl (6.3-8.2)
[2020-06-24 08:36] LABS: Calcium 9.5 mg/dl (8.4-10.2); Glucose 110 mg/dl (74-100)
[2020-06-24 10:47] LABS: Hemoglobin A1C 6.2 % (4.0-6.0)
== END ==
PROVIDERS: Visit Provider Internal Medicine Adolescent Medicine
DX: E11.9 Type 2 diabetes mellitus without complications (principal)
CPT/HCPCS: 36415; 80053; 83036

== ENCOUNTER → 2020-07-01 07:43 | Outpatient (CLI) | payer BC, SELFPAY ==
--- NOTE | 2020-07-01 | XR_ITS ---
PROCEDURE: XR HIP LT 2-3V W/PELVIS CLINICAL INDICATION: PAIN COMPARISON: CR XR HIP RT 2-3V W/PELVIS from 07/01/2020 FINDINGS: No fracture or dislocation is evident. There is minor asymmetrical joint space narrowing and minor spurring of the greater trochanter. There are no soft tissue calcifications. The left SI joint and symphysis pubis appear normal. IMPRESSION: Minor osteoarthritic changes left hip Dictated by: Dr. Jaya Brown MD 07/01/2020 08:19 Dr. Jaya Brown MD in [place] 07/01/2020 08:19
--- NOTE | 2020-07-01 | XR_ITS ---
PROCEDURE: XR HIP RT 2-3V W/PELVIS CLINICAL INDICATION: PAIN COMPARISON: Left hip same date FINDINGS: No fracture or dislocation is evident. There is minor asymmetrical joint space narrowing. There is moderate spurring of the roof of the acetabulum with a small osteophytic spur from the roof of the acetabulum by approximately 1 mm. Both SI joints appear normal in symphysis pubis is normal. IMPRESSION: Minor osteoarthritic change right hip Dictated by: Dr. Jaya Brown MD 07/01/2020 08:21 Dr. Jaya Brown MD in [place] 07/01/2020 08:21
== END ==
PROVIDERS: PCP Internal Medicine Adolescent Medicine; Visit Provider Internal Medicine Adolescent Medicine
DX: M25.552 Pain in left hip (principal); M25.551 Pain in right hip
CPT/HCPCS: 73502

== ENCOUNTER → 2020-09-03 07:32 | Outpatient (CLI) | payer BC, SELFPAY ==
[2020-09-03 09:41] LABS: Coronavirus 19 IgG Antibody Negative (Negative); Coronavirus 19 IgM Antibody Negative (Negative)
== END ==
PROVIDERS: Visit Provider Internal Medicine Gastroenterology
DX: Z01.812 Encounter for preprocedural laboratory examination (principal)
CPT/HCPCS: 36415; 86328

== ENCOUNTER 2020-09-05 10:02 | Day surgery (SDC) | payer BC, SELFPAY ==
[2020-08-25 14:27] VITALS: BMI 33.0
[2020-09-05 10:29] VITALS: BP 152/97; PULSE 85; RESP 18; TEMP 36.4; O2SAT 97
[2020-09-05 10:45] LABS: POC Glucose,Bedside 95 (70-110)
--- NOTE | 2020-09-05 11:34 | HMH.PROC ---
[facility] Procedure Note Procedure Note:: Colonoscopy Procedure Report: Colonoscopy Endoscopist: Murtaza Ocampo II, MD Referring physician: Arsenio Schwartz MD Date of Procedure: September 05, 2020 Equipment: Olympus 180 variable stiffness pediatric colonoscope Sedation: MAC sedation Indication: Mrs. Jean is a 54-year-old female who is here for screening/surveillance colonoscopy. She did have a colonoscopy 5 years ago at which time polyps were removed ([facility]). She reports no abdominal pain, weight loss, change in her bowel habits or rectal bleeding. She does state that she has a bowel movement every other day. She reports no family history of colon cancer. Procedure: Prior to the procedure, a history and physical exam was performed, and patient's medications and allergies were reviewed. The risks, benefits and alternatives of the sedation and procedure were discussed with the patient. All questions were answered and informed consent was obtained. The patient was brought to the procedure room. Patient identification and proposed procedure were verified by the physician and the nurse. The patient was placed in a left lateral decubitus position and the scope was passed under direct vision. Throughout the procedure, the patient's blood pressure, pulse, and oxygen saturations were monitored continuously. The colonoscopy was accomplished without difficulty. The patient tolerated the procedure well. Findings: On digital rectal examination there was normal rectal tone. There were no external hemorrhoids. The colonoscope was introduced through the anal canal to the rectum and advanced to the cecum. The ileocecal valve and appendiceal orifice were identified. The scope was advanced a short distance into the ileum which appeared grossly normal. The scope was then withdrawn into the colon. The cecum, ascending, transverse, descending, sigmoid and rectum were grossly normal. There were no mucosal abnormalities identified. Upon retroflexion within the rectum there were grade 1 internal hemorrhoids.The preparation was excellent throughout with [place] Preparation Score of 9. The cecal time was 11 minutes. Impression: 1. Normal colonoscopy with intubation of the terminal ileum 2. Grade 1 internal hemorrhoids Plan: The patient will not require screening/surveillance colonoscopy again for 10 years by ACS guidelines. I would consider using a fiber bowel regimen on a long-term daily maintenance basis.
[2020-09-05 11:35] VITALS: BP 98/58; PULSE 88; RESP 18; TEMP 36.4; O2SAT 98
[2020-09-05 11:45] VITALS: BP 129/72; PULSE 73; RESP 18; O2SAT 96
--- NOTE | 2020-09-05 11:47 | HMH.ANESCL ---
[facility] Anesthesia Checklist - Structural Data Admitted From: Home Planned Operative Procedure/s: colonoscopy Consent for Planned Operative Procedure(s) Verified: Yes - Airway Assessment C-Spine Mobility Assessed: Yes TMJ Mobility Assessed: Yes Dentition: Good Dentition - Neurological Assessment Level of Consciousness: Awake, Alert, Appropriate - Anesthesia Plan Anesthesia Risk discussed: Yes Anesthesia Plan: Verified ASA Class: II Anesthesia Type: MAC [facility] History I have reviewed the patient's past medical history: Yes Medical History: Reports:: Diabetes Mellitus Type 2 Denies:: Cancer, Diabetes Mellitus Type 1, Internal Pacemaker, MRSA, Seizures *Have you ever received a pneumonia vaccine?: No *Have you received a flu vaccine this season?: Yes Anesthesia experience/problems:: none Other Surgeries: Yes: Other. No: Pacemaker Amputation: No Fractures: No - *Social History Smoking Status: Never smoker Alcohol Intake: never Alcohol Intake Frequency:: holidays/special occasions only Substance Use Type: denies use *Occupational Status:: employed Housing: house Household Members: spouse *Travel in the last 8 weeks: None Family Hx:: Diabetes, Stroke, Heart Attack, Hypertension, Hyperlipidemia
[2020-09-05 11:55] VITALS: BP 124/87; PULSE 76; RESP 18; O2SAT 96
[2020-09-05 12:05] VITALS: BP 144/94; PULSE 67; RESP 18; O2SAT 97
[2020-09-05 12:35] VITALS: BP 127/85; PULSE 80; RESP 18; O2SAT 97
== END 2020-09-05 12:35 | disposition home or self-care (01) ==
LOC: OUTP 10:03
PROVIDERS: PCP Internal Medicine Adolescent Medicine; Visit Provider Internal Medicine Gastroenterology
PROC: 0DJD8ZZ Inspection of Lower Intestinal Tract, Via Natural or Artificial Opening Endoscopic (ICD-10-PCS; CPT 45378; principal; 2020-09-05 11:00)
DX: Z12.11 Encounter for screening for malignant neoplasm of colon (principal); Z86.010 Personal history of colon polyps; K64.0 First degree hemorrhoids; I10 Essential (primary) hypertension; E11.9 Type 2 diabetes mellitus without complications; G47.33 Obstructive sleep apnea (adult) (pediatric); F32.9 Major depressive disorder, single episode, unspecified; Z83.3 Family history of diabetes mellitus; Z82.49 Family history of ischemic heart disease and other diseases of the circulatory system; Z79.82 Long term (current) use of aspirin; Z79.899 Other long term (current) drug therapy
CPT/HCPCS: 45378; 82962

== ENCOUNTER 2020-09-16 20:49 | Emergency (ER) | payer BC, SELFPAY ==
[2020-09-16 21:03] VITALS: BP 143/90; PULSE 89; RESP 15; TEMP 36.8; O2SAT 98; BMI 32.0
--- NOTE | 2020-09-16 21:09 | XR_ITS ---
PROCEDURE: XR CHEST 2V CLINICAL HISTORY: syncope COMPARISON: CR CXR1 CHEST-PORTABLE from 08/12/2017 CR CXR2V XR chest 2V from 12/18/2017 CR CXR2V XR chest 2V from 12/08/2018 FINDINGS: The cardiomediastinal silhouette and pulmonary vascularity are within normal limits. Artifact is present from patient's hair. Calcified granulomas left upper lobe. No acute bony abnormalities. IMPRESSION: No acute findings. Dictated by: Wil Barr MD 09/17/2020 06:35 Wil Barr MD in [facility] 09/17/2020 06:35
--- NOTE | 2020-09-16 21:09 | ECG_ITS ---
APPROVED REPORT Exam: Resting ECG HR:86 bpm ECG Measurements Heart Rate 86 AXES MO 172 P 36 QRSd 76 QRS -5 QT 368 T 51 QTc 440 Conclusion Normal sinus rhythm Left atrial abnormality late r wave progression Abnormal ECG Electronically signed by : Luis Weber, 09/17/2020 06:43:10
--- NOTE | 2020-09-16 21:11 | CT_ITS ---
PROCEDURE: CT HEAD/BRAIN WO CON CLINICAL INDICATION: syncope COMPARISON: No exams were available for comparison TECHNIQUE: Axial images obtained. All CT scans at the facility use one or more dose reduction, viz: automated exposure control, ma/kV adjustment per patient size (including targeted exams where dose is matched to indication, i.e. head), or iterative reconstruction technique. FINDINGS: No midline shift, mass effect, intracranial hemorrhage, hydrocephalus, or extra-axial fluid collection is evident. There is generalized hypoattenuation of the periventricular white matter consistent with microangiopathic changes. The calvarium has an unremarkable appearance. No mastoid effusion. No sinus air-fluid level. IMPRESSION: No acute intracranial finding Dictated by: Wil Barr MD 09/17/2020 07:27 Wil Barr MD in [facility] 09/17/2020 07:27
--- NOTE | 2020-09-16 21:12 | HMH.EDSYNC ---
ED Disposition Clinical Impression: Seizure Disposition: Home, Self-Care Condition on Discharge: Good Instructions: DI for Syncope in Adults (Fainting) Additional Instructions: please call pcp and neuro in am Referrals: Arsenio Schwartz MD [Primary Care Provider] - Sofia Keller MD [Staff Physician] - - Critical Care Critical Care Time: No Attestation: On 09/16/20, the high probability of a clinically significant, sudden or life threatening deterioration of the following system(s) required my full and direct attention, intervention and personal management. The time I documented below is in addition to time spent performing reported procedures but includes the following listed in this critical care notation. Medical Decision Making - Medical Records Medical records reviewed: Yes: I reviewed the patient's medical records. - Fly Inquiry Pt receiving controlled substance: No Vital Signs: 09/16/20 21:03 09/16/20 21:18 09/16/20 21:30 Temperature 98.2 F Temperature Source Oral Pulse Rate [Orthostatic Lying Right Brachial] 82 Pulse Rate [Orthostatic Sitting Right Brachial] 89 Pulse Rate [Orthostatic Standing Right Brachial] 90 Pulse Rate [Right Brachial] 89 78 Respiratory Rate 15 17 Blood Pressure [Orthostatic Lying Right Arm] 139/83 Blood Pressure [Orthostatic Sitting] 133/87 Blood Pressure [Orthostatic Standing Right Arm] 134/87 Blood Pressure [Right Arm] 143/90 H 146/86 H Blood Pressure Mean [Right Arm] 107 106 Blood Pressure Source [Right Arm] Automatic Cuff Automatic Cuff Blood Pressure Position [Right Arm] Sitting Supine 02 Sat by Pulse Oximetry 98 96 Oxygen Delivery Method Room Air Room Air 09/16/20 23:00 09/16/20 23:30 Temperature Temperature Source Pulse Rate [Orthostatic Lying Right Brachial] Pulse Rate [Orthostatic Sitting Right Brachial] Pulse Rate [Orthostatic Standing Right Brachial] Pulse Rate [Right Brachial] 84 80 Respiratory Rate 16 17 Blood Pressure [Orthostatic Lying Right Arm] Blood Pressure [Orthostatic Sitting] Blood Pressure [Orthostatic Standing Right Arm] Blood Pressure [Right Arm] 132/80 124/81 Blood Pressure Mean [Right Arm] 97 95 Blood Pressure Source [Right Arm] Automatic Cuff Automatic Cuff Blood Pressure Position [Right Arm] Supine Supine 02 Sat by Pulse Oximetry 97 97 Oxygen Delivery Method Room Air Room Air - Lab Data Lab results reviewed: Yes: I reviewed the patient's lab results. Lab Results 09/16/20 21:00: Urine Color Yellow, Urine Appearance Clear, Urine pH 5.5, Ur Specific [place] 1.010, Urine Protein Negative, Urine Glucose (UA) Negative, Urine Ketones Negative, Urine Blood Negative, Urine Nitrate Negative, Urine Bilirubin Negative, Urine Urobilinogen 0.2, Ur Leukocyte Esterase Negative, Urine Bacteria Trace 09/16/20 21:00: WBC 6.3, RBC 4.95, Hgb 12.6, Hct 40.3, MCV 81.3, MCH 25.5 L, MCHC 31.4 L, RDW 16.6, Plt Count 290, MPV 7.8, Neut % (Auto) 38.1, Lymph % (Auto) 55.0 H, [place] % (Auto) 4.8, Eos % (Auto) 1.3, Baso % (Auto) 0.8, Neut # (Auto) 2.4, Lymph # (Auto) 3.5, [place] # (Auto) 0.3, Eos # (Auto) 0.1, Baso # (Auto) 0.1, Total Counted 100, Neutrophils % (Manual) 37 L, Lymphocytes % (Manual) 58 H, Monocytes % (Manual) 5, Platelet Estimate Normal, RBC Morphology Normal, Hypochromasia 2+, Anisocytosis 1+ 09/16/20 21:00: Sodium 136, Potassium 4.0, Chloride 99, Carbon Dioxide 30, Anion Gap 11.0, BUN 20 H, Creatinine 1.30 H, Estimated Creat Clear 71, Estimated GFR 43 L, Est GFR ( Amer) 52 L, Glucose 119 H, Calcium 9.8, Total Bilirubin 0.7, Direct Bilirubin 0.2, Conjugated Bilirubin 0.0, Indirect Bilirubin 0.5, Unconjugated Bilirubin 0.5, AST 30, ALT 17, Alkaline Phosphatase 91, Troponin I < 0.01, Total Protein 8.3 H, Albumin 4.5 09/16/20 21:00: SARS-CoV-2 IgG Ab (Rapid) Negative, SARS-CoV-2 IgM Ab (Rapid) Negative 09/16/20 21:00: Urine Opiates Screen Negative, Urine Methadone Screen Negative, Ur Barbituates Screen Negative, Ur Phencycl
[2020-09-16 21:14] LABS: Microscopic, Urine URINE MICROSCOPIC (MICROSCOPIC)
[2020-09-16 21:16] LABS: Basophils # 0.1 K/mm3 (0-0.2); Basophils % 0.8 % (0.1-2.0); Eosinophils # 0.1 K/mm3 (0.0-0.4); Eosinophils % 1.3 % (0.1-12.0); Hematocrit 40.3 % (37.0-47.0); Hemoglobin 12.6 g/dL (12.2-16.2); Lymphocytes # 3.5 K/mm3 (0.7-4.5); Mean Corpuscular HGB Conc 31.4 g/dL (31.8-35.4); Mean Corpuscular Hemoglobin 25.5 pg (27.0-31.2); Mean Corpuscular Volume 81.3 fl (81-99); Mean Platelet Volume 7.8 fl (7.4-10.4); Monocytes # 0.3 K/mm3 (0.1-1.0); Monocytes % 4.8 % (1.7-9.3); Neutrophils # 2.4 K/mm3 (1.8-7.8); Neutrophils % 38.1 % (37.0-80.0); Platelet Count 290 K/mm3 (142-424); Red Blood Count 4.95 M/mm3 (4.20-5.40); Red Cell Distribution Width 16.6 % (11.5-17.5); White Blood Count 6.3 K/mm3 (4.8-10.8)
[2020-09-16 21:18] VITALS: BP 133/87; BP 134/87; BP 139/83; PULSE 82; PULSE 89; PULSE 90
[2020-09-16 21:20] LABS: Alanine Aminotransferase 17 U/L (12-78); Albumin Level 4.5 g/dl (3.5-5.0); Alkaline Phosphatase 91 U/L (38-126); Aspartate Amino Transferase 30 U/L (14-36); Bilirubin,Direct 0.2 mg/dl (0.0-0.4); Bilirubin,Indirect 0.5 mg/dL (0.0-0.9); Bilirubin,Total 0.7 mg/dl (0.2-1.3); Bilirubin,Unconjugated 0.5 mg/dL (0.0-1.1); Blood Urea Nitrogen 20 mg/dl (7-17); Calcium 9.8 mg/dl (8.4-10.2); Carbon Dioxide 30 mmol/L (22.0-30.0); Chloride 99 mmol/L (98-107); Creatinine Clearance Estimated 71 mL/min (50-200); Estimated Glomerular Filt Rate 43 ml/min (>60); GFR (African American) 52 ML/MIN (>60); Glucose 119 mg/dl (74-100); Sodium 136 mmol/L (136-145); Total Protein,Serum 8.3 g/dl (6.3-8.2)
[2020-09-16 21:26] LABS: MANUAL DIFFERENTIAL MANUAL DIFFERENTIAL (MANUAL DIFF)
[2020-09-16 21:27] LABS: Appearance,Urine CLEAR (Clear); Bilirubin,Urine Negative (Negative); Blood, Urine Negative (Negative); Color,Urine YELLOW (Yellow); Glucose,Urine (UA) Negative (Negative); Ketones,Urine Negative (Negative); Leukocyte Esterase,Urine Negative (Negative); Nitrate,Urine Negative (Negative); PH,Urine 5.5 (5.0-8.5); Protein,Urine Negative (Negative); Urobilinogen,Urine 0.2 EU/dl (0.2)
[2020-09-16 21:30] VITALS: BP 146/86; PULSE 78; RESP 17; O2SAT 96
[2020-09-16 21:37] LABS: Amphetamine/Metha Screen,Urine Negative ng/ml (<1000)
[2020-09-16 21:38] LABS: Barbiturates Screen,Urine Negative ng/ml (<200); Benzodiazepines Screen,Urine Negative ng/ml (<200)
[2020-09-16 21:39] LABS: Cannabinoid Screen,Urine Positive ng/ml (<50)
[2020-09-16 21:40] LABS: Cocaine Screen,Urine Negative ng/ml (<300); Methadone Screen,Urine Negative ng/ml (<300)
[2020-09-16 21:41] LABS: Opiate Screen,Urine Negative ng/ml (<300); Troponin I < 0.01 ng/ml (0.00-0.034)
[2020-09-16 21:42] LABS: Phencyclidine Screen,Urine Negative ng/ml (<25)
[2020-09-16 21:44] LABS: Anisocytosis 1+; Hypochromasia 2+; Lymphocytes % 58 % (10-50); Monocytes % 5 % (2-9); Neutrophils % 37 % (42-76); Platelet Estimate Normal; RBC Morphology Normal; Total Cells Counted 100
[2020-09-16 21:54] LABS: Bacteria,Urine Trace /lpf
[2020-09-16 21:56] LABS: Coronavirus 19 IgG Antibody Negative (Negative); Coronavirus 19 IgM Antibody Negative (Negative)
--- NOTE | 2020-09-16 22:37 | CT_ITS ---
Procedure: CT ANGIO NECK CLINICAL HISTORY: near syncope COMPARISON: No exams were available for comparison TECHNIQUE: IV Contrast: 100ml Isovue 370 Axial images obtained with sagittal and coronal reformats. All CT scans at the facility use one or more dose reduction, viz: automated exposure control, ma/kV adjustment per patient size (including targeted exams where dose is matched to indication, i.e. head), or iterative reconstruction technique. FINDINGS: Bovine origin the right brachiocephalic left common carotid artery. Tortuosity of the common carotids. Mild atheromatous changes present at the bulbs and proximal ICAs with no significant stenosis. No evidence of dissection. There is a shallow ulcer in the proximal left internal carotid. Dominant left vertebral artery. No vertebral stenosis or dissection. Soft tissues: Mild thyromegaly. Calcified granuloma left upper lobe. Noncalcified 4 mm nodule right apex. IMPRESSION: 1. No significant stenosis or dissection. 2. Mild atheromatous changes of the internal carotid on both sides with shallow ulcer of the left carotid bulb Dictated by: Wil Barr MD 09/17/2020 07:19 Wil Barr MD in [facility] 09/17/2020 07:19
--- NOTE | 2020-09-16 22:49 | CT_ITS ---
Procedure: CT ANGIO HEAD CLINICAL HISTORY: syncope COMPARISON: CT CT HEAD/BRAIN WO CON from 09/16/2020 TECHNIQUE: IV Contrast: 100ml Isovue 370 Axial images obtained with sagittal and coronal reformats. All CT scans at the facility use one or more dose reduction, viz: automated exposure control, ma/kV adjustment per patient size (including targeted exams where dose is matched to indication, i.e. head), or iterative reconstruction technique. FINDINGS: No aneurysm, AVM or major intracranial occlusive process evident. No arterial dissection. [id number] is patent Left-sided vertebral dominance regarding the vertebral basilar system. Basilar artery has an unremarkable appearance. No evidence of sinus thrombosis IMPRESSION: No occlusion or significant stenosis. No aneurysm apparent Dictated by: Wil Barr MD 09/17/2020 07:25 Wil Barr MD in [facility] 09/17/2020 07:25
[2020-09-16 23:00] VITALS: BP 132/80; PULSE 84; RESP 16; O2SAT 97
[2020-09-16 23:30] VITALS: BP 124/81; PULSE 80; RESP 17; O2SAT 97
[2020-09-17] VITALS: BP 113/76; PULSE 78; RESP 17; O2SAT 96
[2020-09-17 00:19] VITALS: BP 130/75; PULSE 73; RESP 16; TEMP 36.5; O2SAT 98
[2020-09-17 16:59] LABS: POC Glucose,Bedside 112 (70-110)
== END 2020-09-17 01:00 | disposition home or self-care (01) ==
PROVIDERS: Emergency Provider Emergency Medicine; PCP Internal Medicine Adolescent Medicine
DX: G40.909 Epilepsy, unspecified, not intractable, without status epilepticus (principal); Z01.84 Encounter for antibody response examination; I10 Essential (primary) hypertension; F12.10 Cannabis abuse, uncomplicated; E11.9 Type 2 diabetes mellitus without complications; G62.9 Polyneuropathy, unspecified; Z79.899 Other long term (current) drug therapy
CPT/HCPCS: 70450; 70496; 70498; 71046; 80048; 80076; 80305; 81001; 82962; 84484; 85007; 85025; 86328; 93005; 96365; 99284; J1953; Q9967

== ENCOUNTER → 2020-09-18 14:00 | Outpatient (CLI) | payer BC, SELFPAY ==
[2020-09-18 15:22] LABS: Alanine Aminotransferase 14 U/L (12-78); Albumin Level 4.1 g/dl (3.5-5.0); Albumin/Globulin Ratio 1.3 (1.1-1.8); Alkaline Phosphatase 75 U/L (38-126); Anion Gap 9.2 mEq/L (5-15); Aspartate Amino Transferase 25 U/L (14-36); Bilirubin,Total 0.6 mg/dl (0.2-1.3); Blood Urea Nitrogen 14 mg/dl (7-17); Calcium 9.3 mg/dl (8.4-10.2); Carbon Dioxide 29 mmol/L (22.0-30.0); Chloride 106 mmol/L (98-107); Estimated Glomerular Filt Rate 52 ml/min (>60); GFR (African American) 63 ML/MIN (>60); Globulin 3.2 g/dL (1.3-3.2); Glucose 158 mg/dl (74-100); Potassium 4.2 mmoL/L (3.5-5.1); Sodium 140 mmol/L (136-145); Total Protein,Serum 7.3 g/dl (6.3-8.2)
[2020-09-18 17:01] LABS: Hemoglobin A1C 6.4 % (4.0-6.0)
== END ==
PROVIDERS: Visit Provider Internal Medicine Adolescent Medicine
DX: E11.9 Type 2 diabetes mellitus without complications (principal); I10 Essential (primary) hypertension
CPT/HCPCS: 36415; 80053; 83036

== ENCOUNTER → 2021-02-20 07:35 | Outpatient (CLI) | payer BC, SELFPAY ==
[2021-02-20 08:08] LABS: Hemoglobin A1C 6.7 % (4.0-6.0)
[2021-02-20 08:27] LABS: Chloride 102 mmol/L (98-107); Sodium 140 mmol/L (136-145)
[2021-02-20 08:30] LABS: Alanine Aminotransferase 15 U/L (12-78); Albumin Level 4.4 g/dl (3.5-5.0); Albumin/Globulin Ratio 1.4 (1.1-1.8); Alkaline Phosphatase 119 U/L (38-126); Aspartate Amino Transferase 24 U/L (14-36); Bilirubin,Total 0.6 mg/dl (0.2-1.3); Blood Urea Nitrogen 20 mg/dl (7-17); Calcium 9.4 mg/dl (8.4-10.2); Carbon Dioxide 30 mmol/L (22.0-30.0); Estimated Glomerular Filt Rate 65 ml/min (>60); GFR (African American) 79 ML/MIN (>60); Globulin 3.2 g/dL (1.3-3.2); Glucose 157 mg/dl (74-100); Total Protein,Serum 7.6 g/dl (6.3-8.2)
== END ==
PROVIDERS: Visit Provider Internal Medicine Adolescent Medicine
DX: E11.9 Type 2 diabetes mellitus without complications (principal); Z79.84 Long term (current) use of oral hypoglycemic drugs
CPT/HCPCS: 36415; 80053; 83036

== ENCOUNTER → 2021-05-11 17:20 | Outpatient (CLI) | payer BC, SELFPAY ==
[2021-05-11 19:13] LABS: Hemoglobin A1C 8.3 % (4.0-6.0)
[2021-05-11 19:17] LABS: Chloride 100 mmol/L (98-107); Sodium 140 mmol/L (136-145)
[2021-05-11 19:18] LABS: Potassium 4.2 mmoL/L (3.5-5.1)
[2021-05-11 19:20] LABS: Alanine Aminotransferase 24 U/L (12-78); Albumin Level 4.5 g/dl (3.5-5.0); Albumin/Globulin Ratio 1.3 (1.1-1.8); Alkaline Phosphatase 164 U/L (38-126); Anion Gap 14.2 mEq/L (5-15); Aspartate Amino Transferase 34 U/L (14-36); Bilirubin,Total 0.4 mg/dl (0.2-1.3); Blood Urea Nitrogen 16 mg/dl (7-17); Calcium 9.4 mg/dl (8.4-10.2); Carbon Dioxide 30 mmol/L (22.0-30.0); Estimated Glomerular Filt Rate 65 ml/min (>60); GFR (African American) 79 ML/MIN (>60); Globulin 3.4 g/dL (1.3-3.2); Glucose 146 mg/dl (74-100); Total Protein,Serum 7.9 g/dl (6.3-8.2)
== END ==
PROVIDERS: Visit Provider Internal Medicine Adolescent Medicine
DX: E11.9 Type 2 diabetes mellitus without complications (principal); Z79.84 Long term (current) use of oral hypoglycemic drugs
CPT/HCPCS: 36415; 80053; 83036

== ENCOUNTER → 2021-05-12 17:02 | Outpatient (CLI) | payer BC, SELFPAY ==
[2021-05-12 18:16] LABS: Alanine Aminotransferase 23 U/L (12-78); Albumin Level 4.6 g/dl (3.5-5.0); Albumin/Globulin Ratio 1.4 (1.1-1.8); Alkaline Phosphatase 142 U/L (38-126); Anion Gap 14.4 mEq/L (5-15); Aspartate Amino Transferase 32 U/L (14-36); Bilirubin,Total 0.7 mg/dl (0.2-1.3); Blood Urea Nitrogen 15 mg/dl (7-17); Calcium 9.6 mg/dl (8.4-10.2); Carbon Dioxide 25 mmol/L (22.0-30.0); Chloride 102 mmol/L (98-107); Estimated Glomerular Filt Rate 74 ml/min (>60); GFR (African American) 90 ML/MIN (>60); Globulin 3.4 g/dL (1.3-3.2); Glucose 158 mg/dl (74-100); Lipase 194 U/L (23-300); Potassium 4.4 mmoL/L (3.5-5.1); Sodium 137 mmol/L (136-145)
== END ==
PROVIDERS: Visit Provider Internal Medicine Adolescent Medicine
DX: R10.13 Epigastric pain (principal)
CPT/HCPCS: 36415; 80053; 83690

== ENCOUNTER → 2021-05-20 14:16 | Outpatient (CLI) | payer BC, SELFPAY ==
--- NOTE | 2021-05-20 14:18 | MM_ITS ---
PROCEDURE: MM DIG MAMM BI DX W/CAD Digital Breast Tomosynthesis Included U/S LEFT BREAST COMPLETE CLINICAL INDICATION: F/U ON LEFT SCREENING RIGHT COMPARISON: CR,MG DMSB DIG MAMM-SCREEN MERE W/CAD from 07/08/2017 MG MM DIG SCREENING MAMM BI W/CAD from 05/04/2019 MG MM DIG SCREENING MAMM BI W/CAD from 05/16/2020 MG MM DIG MAMM DX UNILAT LT CAD from 05/28/2020 US US BREAST LT COMPLETE from 05/20/2021 TECHNIQUE: Diagnostic bilateral mammogram performed along with left breast ultrasound. FINDINGS: The breasts are heterogeneously dense which may obscure small masses. Postsurgical changes are present from prior breast reduction. There is some architectural distortion in the upper outer right breast which may represent postsurgical changes slightly more prominent. Benign-appearing calcifications noted bilaterally. There is a small cluster of calcifications in the inferior left breast as seen on the mL 0 view which are in a linear pattern. These are not identified on the CC view. Skin calcifications once again noted in the medial aspect of the left breast. Probably benign. There remains nodularity in the upper aspect of the left breast overall not significantly changed. No malignant appearing mass or malignant-appearing microcalcification. Left breast ultrasound: No cystic or solid nodules demonstrated. IMPRESSION: Probably benign findings. Suggest bilateral 6 month mammographic follow-up BI-RAD Category: 3 Probably Benign Finding Short Term Follow-Up FOLLOW-UP: 6M 6 Month Follow-up (A letter has been sent to the patient regarding results of the study.) Dictated by: Wil Barr MD 06/02/2021 07:33 Wil Barr MD in [facility] 06/02/2021 07:33
== END ==
PROVIDERS: PCP Internal Medicine Adolescent Medicine; Visit Provider Internal Medicine Adolescent Medicine
DX: R92.8 Other abnormal and inconclusive findings on diagnostic imaging of breast (principal)
CPT/HCPCS: 76641; 77062; 77066; G0279

== ENCOUNTER → 2021-09-15 07:10 | Outpatient (CLI) | payer BC, SELFPAY ==
[2021-09-15 09:05] LABS: Hemoglobin A1C 9.5 % (4.0-6.0)
[2021-09-15 09:22] LABS: Chloride 104 mmol/L (98-107); Potassium 4.6 mmoL/L (3.5-5.1); Sodium 140 mmol/L (136-145)
[2021-09-15 09:24] LABS: Alanine Aminotransferase 18 U/L (12-78); Aspartate Amino Transferase 27 U/L (14-36); Blood Urea Nitrogen 15 mg/dl (7-17); Estimated Glomerular Filt Rate 74 ml/min (>60); GFR (African American) 90 ML/MIN (>60)
[2021-09-15 09:25] LABS: Albumin Level 4.3 g/dl (3.5-5.0); Albumin/Globulin Ratio 1.5 (1.1-1.8); Alkaline Phosphatase 108 U/L (38-126); Anion Gap 11.6 mEq/L (5-15); Bilirubin,Total 0.5 mg/dl (0.2-1.3); Calcium 9.1 mg/dl (8.4-10.2); Carbon Dioxide 29 mmol/L (22.0-30.0); Globulin 2.9 g/dL (1.3-3.2); Glucose 216 mg/dl (74-100); Total Protein,Serum 7.2 g/dl (6.3-8.2)
== END ==
PROVIDERS: Visit Provider Internal Medicine Adolescent Medicine
DX: E11.9 Type 2 diabetes mellitus without complications (principal); I10 Essential (primary) hypertension
CPT/HCPCS: 36415; 80053; 83036

== ENCOUNTER 2021-10-04 11:03 | Emergency (ER) | payer BC, SELFPAY ==
[2021-10-04] VITALS (19 sets, daily range): BP systolic 134–173; BP diastolic 83–106; PULSE 64–82; RESP 15–27; TEMP 36.6; O2SAT 94–100; BMI 34.7
--- NOTE | 2021-10-04 11:03 | ECG_ITS ---
APPROVED REPORT Exam: Resting ECG HR:78 bpm ECG Measurements Heart Rate 78 AXES DE 196 P 34 QRSd 90 QRS -8 QT 360 T 29 QTc 393 Conclusion SINUS RHYTHM LOW QRS VOLTAGE IN PRECORDIAL LEADS [QRS DEFLECTION < 1.0 mV IN CHEST LEADS] POSSIBLE RIGHT VENTRICULAR CONDUCTION DELAY [RSR (QR) IN V1/V2] BORDERLINE ECG UNCONFIRMED REPORT Electronically signed by : Luis Weber MD 10/05/2021 20:36:38
--- NOTE | 2021-10-04 11:12 | XR_ITS ---
PROCEDURE INFORMATION: Exam: XR Chest Exam date and time: 10/04/2021 11:12 AM Age: 56 years old Clinical indication: Pain; Chest pressure; Additional info: Cp TECHNIQUE: Imaging protocol: XR of the chest. Views: 2 views. COMPARISON: CR XR CHEST 2V 09/16/2020 9:58 PM FINDINGS: Lungs: Calcified granuloma in the upper left lung again noted. The pulmonary parenchyma is otherwise clear. No other pulmonary nodules or masses. No pulmonary infiltrate or consolidation. Pleural spaces: Unremarkable. No pleural effusion. No pneumothorax. Heart/Mediastinum: Unremarkable. No cardiomegaly. Bones/joints: Unremarkable. IMPRESSION: No acute cardiopulmonary disease.
--- NOTE | 2021-10-04 11:12 | HMH.EDGENADL ---
ED Disposition Clinical Impression: Hypertension, essential Chest pain Qualifiers: Chest pain type: unspecified Qualified Code(s): R07.9 - Chest pain, unspecified Disposition: Home, Self-Care Condition on Discharge: Good Instructions: DI for Chest Pain Additional Instructions: Additional instructions for CHEST PAIN: See your physician as soon as possible for further evaluation. Call tomorrow to make appointment. Return immediately if worsening chest pain, vomiting, shortness of breath, fever, coughing of blood. Referrals: Frederick Mercer APRN [Nurse Practitioner] - - Critical Care Critical Care Time: No Attestation: On , the high probability of a clinically significant, sudden or life threatening deterioration of the following system(s) required my full and direct attention, intervention and personal management. The time I documented below is in addition to time spent performing reported procedures but includes the following listed in this critical care notation. Medical Decision Making - Fly Inquiry Pt receiving controlled substance: No Vital Signs: 10/04/21 11:10 10/04/21 11:21 10/04/21 11:29 Temperature 97.8 F Temperature Source Oral Pulse Rate 77 Pulse Rate [Left Radial] 76 Respiratory Rate 17 17 21 Blood Pressure 173/106 H 144/95 H Blood Pressure [Right Arm] 173/106 H Blood Pressure Mean Blood Pressure Mean [Right Arm] 128 02 Sat by Pulse Oximetry 98 99 Oxygen Delivery Method Room Air 10/04/21 11:30 10/04/21 11:56 10/04/21 11:57 Temperature Temperature Source Pulse Rate 71 71 Pulse Rate [Left Radial] Respiratory Rate 17 22 Blood Pressure 145/91 H 155/90 H 147/92 H Blood Pressure [Right Arm] Blood Pressure Mean Blood Pressure Mean [Right Arm] 02 Sat by Pulse Oximetry 99 97 Oxygen Delivery Method 10/04/21 12:00 10/04/21 12:15 10/04/21 12:30 Temperature Temperature Source Pulse Rate 74 Pulse Rate [Left Radial] Respiratory Rate 16 18 Blood Pressure 144/95 H 144/95 H 162/98 H Blood Pressure [Right Arm] Blood Pressure Mean 115 Blood Pressure Mean [Right Arm] 02 Sat by Pulse Oximetry 97 Oxygen Delivery Method 10/04/21 12:33 10/04/21 13:00 10/04/21 13:30 Temperature Temperature Source Pulse Rate 71 70 Pulse Rate [Left Radial] Respiratory Rate 16 21 26 H Blood Pressure 156/91 H 154/96 H 151/94 H Blood Pressure [Right Arm] Blood Pressure Mean 112 106 Blood Pressure Mean [Right Arm] 02 Sat by Pulse Oximetry 97 100 Oxygen Delivery Method 10/04/21 13:45 10/04/21 14:00 10/04/21 14:55 Temperature Temperature Source Pulse Rate 69 82 68 Pulse Rate [Left Radial] Respiratory Rate 27 H 20 16 Blood Pressure 161/97 H 143/90 H 134/83 Blood Pressure [Right Arm] Blood Pressure Mean 101 108 Blood Pressure Mean [Right Arm] 02 Sat by Pulse Oximetry 94 L 99 100 Oxygen Delivery Method 10/04/21 15:00 10/04/21 15:15 Temperature Temperature Source Pulse Rate Pulse Rate [Left Radial] Respiratory Rate 15 21 Blood Pressure 152/96 H 140/88 Blood Pressure [Right Arm] Blood Pressure Mean Blood Pressure Mean [Right Arm] 02 Sat by Pulse Oximetry Oxygen Delivery Method - Lab Data Lab Results 10/04/21 11:10: WBC 3.9 L, RBC 4.86, Hgb 12.3, Hct 39.1, MCV 80.5 L, MCH 25.4 L, MCHC 31.5 L, RDW 16.3, Plt Count 287, MPV 8.8, Neut % (Auto) 39.6, Lymph % (Auto) 51.8 H, [place] % (Auto) 3.8, Eos % (Auto) 1.3, Baso % (Auto) 3.6 H, Neut # (Auto) 1.6 L, Lymph # (Auto) 2.0, [place] # (Auto) 0.2, Eos # (Auto) 0.1, Baso # (Auto) 0.1, Total Counted 100, Neutrophils % (Manual) 40 L, Lymphocytes % (Manual) 52 H, Monocytes % (Manual) 6, Eosinophils % (Manual) 2, Platelet Estimate Normal, Hypochromasia 1+, Anisocytosis 1+ 10/04/21 11:10: Sodium 137, Potassium 3.9, Chloride 105, Carbon Dioxide 29, Anion Gap 6.9, BUN 17, Creatinine 0.70, Estimated Creat Clear 138, Estimated GFR 87, Est GF
[2021-10-04 11:21] LABS: Basophils # 0.1 K/mm3 (0-0.2); Basophils % 3.6 % (0.1-2.0); Eosinophils # 0.1 K/mm3 (0.0-0.4); Eosinophils % 1.3 % (0.1-12.0); Hematocrit 39.1 % (37.0-47.0); Hemoglobin 12.3 g/dL (12.2-16.2); Lymphocytes % 51.8 % (10-50); Mean Corpuscular HGB Conc 31.5 g/dL (31.8-35.4); Mean Corpuscular Hemoglobin 25.4 pg (27.0-31.2); Mean Corpuscular Volume 80.5 fl (81-99); Mean Platelet Volume 8.8 fl (7.4-10.4); Monocytes # 0.2 K/mm3 (0.1-1.0); Monocytes % 3.8 % (1.7-9.3); Neutrophils # 1.6 K/mm3 (1.8-7.8); Neutrophils % 39.6 % (37.0-80.0); Platelet Count 287 K/mm3 (142-424); Red Blood Count 4.86 M/mm3 (4.20-5.40); Red Cell Distribution Width 16.3 % (11.5-17.5); White Blood Count 3.9 K/mm3 (4.8-10.8)
[2021-10-04 11:23] LABS: MANUAL DIFFERENTIAL MANUAL DIFFERENTIAL (MANUAL DIFF)
[2021-10-04 11:24] LABS: Chloride 105 mmol/L (98-107); Potassium 3.9 mmoL/L (3.5-5.1); Sodium 137 mmol/L (136-145)
[2021-10-04 11:27] LABS: Anion Gap 6.9 mEq/L (5-15); Blood Urea Nitrogen 17 mg/dl (7-17); Carbon Dioxide 29 mmol/L (22.0-30.0); Creatinine Clearance Estimated 138 mL/min (50-200); Estimated Glomerular Filt Rate 87 ml/min (>60); GFR (African American) 105 ML/MIN (>60)
[2021-10-04 11:28] LABS: Calcium 9.4 mg/dl (8.4-10.2); Glucose 149 mg/dl (74-100)
[2021-10-04 11:40] LABS: Troponin I < 0.01 ng/ml (0.00-0.034)
--- NOTE | 2021-10-04 11:45 | PC.NURSE ---
patient up and to radiology at this time.
--- NOTE | 2021-10-04 11:52 | PC.NURSE ---
pt back from radiology and hooked back up to cardiac monitoring and vital signs
[2021-10-04 11:59] LABS: Anisocytosis 1+; Eosinophils % 2 % (0-3); Hypochromasia 1+; Lymphocytes % 52 % (10-50); Monocytes % 6 % (2-9); Neutrophils % 40 % (42-76); Platelet Estimate Normal; Total Cells Counted 100
--- NOTE | 2021-10-04 14:27 | PC.NURSE ---
lab is bedside
[2021-10-04 15:28] LABS: Troponin I < 0.01 ng/ml (0.00-0.034)
== END 2021-10-04 15:57 | disposition home or self-care (01) ==
PROVIDERS: Emergency Provider Emergency Medicine; PCP Internal Medicine Adolescent Medicine
DX: R07.9 Chest pain, unspecified (principal); I10 Essential (primary) hypertension; E11.9 Type 2 diabetes mellitus without complications; Z82.49 Family history of ischemic heart disease and other diseases of the circulatory system
CPT/HCPCS: 36415; 71046; 80048; 84484; 85007; 85025; 93005; 99283

== ENCOUNTER → 2021-11-03 12:40 | Outpatient (CLI) | payer BC, SELFPAY ==
--- NOTE | 2021-11-03 13:36 | MM_ITS ---
PROCEDURE INFORMATION: Exam: MG Bilateral Diagnostic Breast Tomosynthesis Exam date and time: 11/03/2021 1:36 PM Age: 56 years old Clinical indication: Six-month follow-up for architectural distortion in the right upper outer breast, which had been felt to represent postsurgical changes in this patient with history of reduction mammoplasty. Follow-up for calcifications in the inferior left breast, seen on the MLO view. TECHNIQUE: Imaging protocol: Bilateral Diagnostic tomosynthesis and 2D mammography including computer-aided detection (CAD) when performed. Unilateral or bilateral exam. COMPARISON: MG MM DIG MAMM BI DX W/CAD 05/20/2021 2:31 PM FINDINGS: MAMMOGRAPHY: The breast tissue is heterogeneously dense, which may obscure small masses. The architectural distortion in the upper right breast, posterior 3rd, in the MLO view (less well seen in the CC view) is somewhat more prominent than the diffuse bilateral architectural distortion related to the reduction mammoplasty, and is stable since 05/20/2021. The calcifications in the lower breast, several in a linear pattern, are shown to be related to the skin in the tomosynthesis sequences. No mass. No suspicious calcifications. No developing asymmetry. No suspicious architectural distortion. Unremarkable axilla. IMPRESSION: Architectural distortion in the upper right breast posterior 3rd is stable, but somewhat more prominent than the diffuse overall architectural distortion related to reduction mammoplasty. Patient to be recalled for right diagnostic mammography with spot compression in the XCCL and true lateral views as well as right breast ultrasound for further evaluation. Benign-appearing calcifications in the left breast, related to the skin . ASSESSMENT: BI-RADS Category 0: Incomplete- Need Additional Imaging Evaluation and/or Prior Mammograms for Comparison
== END ==
PROVIDERS: PCP Internal Medicine Adolescent Medicine; Visit Provider Internal Medicine Adolescent Medicine
DX: R92.8 Other abnormal and inconclusive findings on diagnostic imaging of breast (principal)
CPT/HCPCS: 77062; 77066; G0279

== ENCOUNTER → 2022-05-25 10:41 | Outpatient (CLI) | payer BC, SELFPAY ==
--- NOTE | 2022-05-25 10:59 | XR_ITS ---
FINAL REPORT CLINICAL HISTORY: pain..growth on foot x 1 month FINDINGS: Right foot Three weightbearing views were obtained. There is no acute fracture or dislocation. Moderate hallux valgus deformity with associated degenerative change. No erosions. There is no acute soft tissue abnormality. IMPRESSION: No acute bony abnormality. Reviewed, Interpreted and Dictated by Shayna Daly MD Transcribed by Chandra Travis Authenticated and [facility]
--- NOTE | 2022-05-25 10:59 | XR_ITS ---
FINAL REPORT CLINICAL HISTORY: pain..toes crossed over each other FINDINGS: Left foot Three weightbearing views were obtained. There is no acute fracture or dislocation. Moderate hallux valgus deformity. Lucent lesion in the 3rd proximal phalanx could represent a small enchondroma or bone cyst. There is no acute soft tissue abnormality. IMPRESSION: No acute bony abnormality. Reviewed, Interpreted and Dictated by Shayna Daly MD Transcribed by Chandra Travis Authenticated and . [facility]
[2022-05-25 11:29] LABS: Basophils # 0.1 K/mm3 (0-0.2); Basophils % 1.5 % (0.1-2.0); Eosinophils # 0.1 K/mm3 (0.0-0.4); Eosinophils % 1.4 % (0.1-12.0); Hematocrit 36.4 % (37.0-47.0); Hemoglobin 11.5 g/dL (12.2-16.2); Lymphocytes # 2.3 K/mm3 (0.7-4.5); Lymphocytes % 50.2 % (10-50); Mean Corpuscular HGB Conc 31.7 g/dL (31.8-35.4); Mean Corpuscular Hemoglobin 25.8 pg (27.0-31.2); Mean Corpuscular Volume 81.6 fl (81-99); Mean Platelet Volume 8.2 fl (7.4-10.4); Monocytes # 0.2 K/mm3 (0.1-1.0); Monocytes % 4.4 % (1.7-9.3); Neutrophils # 1.9 K/mm3 (1.8-7.8); Neutrophils % 42.4 % (37.0-80.0); Platelet Count 314 K/mm3 (142-424); Red Blood Count 4.47 M/mm3 (4.20-5.40); Red Cell Distribution Width 16.8 % (11.5-17.5); White Blood Count 4.5 K/mm3 (4.8-10.8)
[2022-05-25 11:35] LABS: MANUAL DIFFERENTIAL MANUAL DIFFERENTIAL (MANUAL DIFF)
[2022-05-25 12:09] LABS: Hemoglobin A1C 9.3 % (4.0-6.0)
[2022-05-25 12:44] LABS: Alanine Aminotransferase 18 U/L (12-78); Albumin Level 4.2 g/dl (3.5-5.0); Albumin/Globulin Ratio 1.4 (1.1-1.8); Alkaline Phosphatase 149 U/L (38-126); Anion Gap 12.3 mEq/L (5-15); Aspartate Amino Transferase 26 U/L (14-36); Bilirubin,Total 0.4 mg/dl (0.2-1.3); Blood Urea Nitrogen 21 mg/dl (7-17); Calcium 9.2 mg/dl (8.4-10.2); Carbon Dioxide 30 mmol/L (22.0-30.0); Chloride 100 mmol/L (98-107); Estimated Glomerular Filt Rate 65 ml/min (>60); GFR (African American) 78 ML/MIN (>60); Globulin 2.9 g/dL (1.3-3.2); Glucose 140 mg/dl (74-100); Magnesium 1.7 mg/dl (1.6-2.3); Potassium 4.3 mmoL/L (3.5-5.1); Sodium 138 mmol/L (136-145); Total Protein,Serum 7.1 g/dl (6.3-8.2)
[2022-05-25 12:50] LABS: C-Reactive Protein 3.5 mg/L (0-4)
[2022-05-25 13:08] LABS: Erythrocyte Sedimentation Rate 2 mm/hr (0-30)
[2022-05-25 13:33] LABS: Eosinophils % 3 % (0-3); Platelet Estimate Normal; RBC Morphology Normal; Total Cells Counted 100
[2022-05-25 13:51] LABS: Lymphocytes % 49 % (10-50); Monocytes % 5 % (2-9); Neutrophils % 43 % (42-76)
[2022-05-25 14:00] LABS: Folate 7.29 ng/mL; Vitamin B12 > 1000 pg/mL (239-931)
== END ==
PROVIDERS: PCP Nurse Practitioner Family; Visit Provider Podiatrist
DX: M25.571 Pain in right ankle and joints of right foot (principal); M25.572 Pain in left ankle and joints of left foot; G62.9 Polyneuropathy, unspecified; E11.9 Type 2 diabetes mellitus without complications
CPT/HCPCS: 36415; 73630; 80053; 82607; 82746; 83036; 83735; 84443; 85007; 85025; 85651; 86140

== ENCOUNTER → 2022-06-09 07:44 | Outpatient (CLI) | payer BC, SELFPAY ==
--- NOTE | 2022-06-09 07:51 | US_ITS ---
FINAL REPORT CLINICAL HISTORY: DECREASED PULSES,DM,HTN,CLAUDICATION,LEG PAIN FINDINGS: ANKLE-BRACHIAL PRESSURE INDICES Pressure indices are as follows: RIGHT LOWER EXTREMITY: Ankle-brachial pressure index: 1.09 Comments: Normal LEFT LOWER EXTREMITY: Ankle-brachial pressure index: 1.01 Comments: Normal CONCLUSION: No evidence of significant obstructive peripheral vascular disease of the lower extremities Reviewed, Interpreted and Dictated by Arjun Aggarwal III, MD Transcribed by Teagan Ross Authenticated and [facility]
== END ==
PROVIDERS: PCP Nurse Practitioner Family; Visit Provider Podiatrist
DX: R09.89 Other specified symptoms and signs involving the circulatory and respiratory systems (principal)
CPT/HCPCS: 93923

== ENCOUNTER → 2023-01-04 08:57 | Outpatient (CLI) | payer BC, SELFPAY ==
--- NOTE | 2023-01-04 09:06 | ECG_ITS ---
APPROVED REPORT Exam: Resting ECG HR:74 bpm ECG Measurements Heart Rate 74 AXES DE 182 P 62 QRSd 82 QRS 52 QT 388 T 59 QTc 415 Conclusion SINUS RHYTHM LOW QRS VOLTAGE IN PRECORDIAL LEADS [QRS DEFLECTION < 1.0 mV IN CHEST LEADS] BORDERLINE ECG UNCONFIRMED REPORT Electronically signed by : Luis Weber MD 01/04/2023 22:04:02
--- NOTE | 2023-01-04 09:17 | XR_ITS ---
FINAL REPORT CLINICAL HISTORY: Pain and edema in lower extremity, hx of htn COMPARISON: September 2021 FINDINGS: Left upper lobe nodule unchanged from prior compatible with calcified granuloma. Lungs are otherwise clear. There is no evidence of effusion. The mediastinum has a normal appearance. The cardiac silhouette is unremarkable. IMPRESSION: Unremarkable chest exam. Reviewed, Interpreted and Dictated by Shayna Daly MD Transcribed by Chandra Travis Authenticated and [facility]
--- NOTE | 2023-01-04 09:17 | XR_ITS ---
FINAL REPORT CLINICAL HISTORY: Foot Pain, pain and edema in lower extremity COMPARISON: April 2022 FINDINGS: Three weight-bearing views show no evidence of acute displaced fracture or dislocation of the visualized bony architecture. Stable hallux valgus deformity. No bony erosions. IMPRESSION: No acute abnormality. Reviewed, Interpreted and Dictated by Shayna Daly MD Transcribed by Chandra Travis Authenticated and [facility]
[2023-01-04 09:29] LABS: Basophils % 0.3 % (0.1-2.0); Eosinophils # 0.1 K/mm3 (0.0-0.4); Eosinophils % 1.6 % (0.1-12.0); Hematocrit 36.2 % (37.0-47.0); Hemoglobin 11.4 g/dL (12.2-16.2); Mean Corpuscular HGB Conc 31.3 g/dL (31.8-35.4); Mean Corpuscular Hemoglobin 24.8 pg (27.0-31.2); Mean Corpuscular Volume 79.2 fl (81-99); Mean Platelet Volume 7.9 fl (7.4-10.4); Monocytes # 0.2 K/mm3 (0.1-1.0); Monocytes % 5.1 % (1.7-9.3); Neutrophils % 46.1 % (37.0-80.0); Platelet Count 354 K/mm3 (142-424); Red Blood Count 4.57 M/mm3 (4.20-5.40); Red Cell Distribution Width 17.1 % (11.5-17.5); White Blood Count 4.2 K/mm3 (4.8-10.8)
[2023-01-04 09:49] LABS: Chloride 98 mmol/L (98-107); Sodium 140 mmol/L (136-145)
[2023-01-04 09:51] LABS: Alanine Aminotransferase 22 U/L (12-78); Aspartate Amino Transferase 30 U/L (14-36); Blood Urea Nitrogen 19 mg/dl (7-17); Estimated Glomerular Filt Rate 65 ml/min (>60); GFR (African American) 78 ML/MIN (>60)
[2023-01-04 09:52] LABS: Albumin Level 4.1 g/dl (3.5-5.0); Albumin/Globulin Ratio 1.4 (1.1-1.8); Alkaline Phosphatase 93 U/L (38-126); Bilirubin,Total 0.6 mg/dl (0.2-1.3); Calcium 9.1 mg/dl (8.4-10.2); Carbon Dioxide 34 mmol/L (22.0-30.0); Glucose 72 mg/dl (74-100); Total Protein,Serum 7.1 g/dl (6.3-8.2)
[2023-01-04 09:57] LABS: C-Reactive Protein 3.6 mg/L (0-4)
[2023-01-04 10:51] LABS: Hemoglobin A1C 6.7 % (4.0-6.0)
[2023-01-04 10:52] LABS: Uric Acid 7.1 mg/dl (2.5-6.2)
[2023-01-04 11:29] LABS: Erythrocyte Sedimentation Rate 45 mm/hr (0-30)
[2023-01-13 02:09] LABS: 1,25 Dihydroxy Vitamin D 40 pg/mL (.); 1,25-Dihydroxy, Vitamin D-2 <10 pg/mL (.); 1,25-Dihydroxy, Vitamin D-3 39 pg/mL (.)
== END ==
LOC: LAB 08:59
PROVIDERS: PCP Nurse Practitioner Family; Visit Provider Podiatrist
DX: R60.9 Edema, unspecified (principal); Z01.818 Encounter for other preprocedural examination; M79.672 Pain in left foot
CPT/HCPCS: 36415; 71046; 73630; 80053; 82652; 83036; 84550; 85025; 85651; 86140; 93005

== ENCOUNTER → 2023-01-12 08:37 | Outpatient (CLI) | payer BC, SELFPAY ==
--- NOTE | 2023-01-12 08:42 | CA_ITS ---
FINAL REPORT TECHNIQUE: Multiple transverse and longitudinal images were performed of right the femoral-popliteal deep venous system with augmentation and compression maneuvers. CLINICAL HISTORY: RT CALF SWELLING/PAIN COMPARISON: None FINDINGS: Right lower extremity duplex ultrasound demonstrates normal flow in the deep venous system. There is no abnormal echogenicity to suggest thrombus. There is normal compression and augmentation. IMPRESSION: No evidence of right DVT. Reviewed, Interpreted and Dictated by Arjun Aggarwal III, MD Transcribed by Greta Ruiz Authenticated and . [facility]
== END ==
LOC: RT 08:39
PROVIDERS: PCP Nurse Practitioner Family; Visit Provider Physician Assistant
DX: M79.661 Pain in right lower leg (principal)
CPT/HCPCS: 93971

== ENCOUNTER → 2023-01-28 06:46 | Outpatient (CLI) | payer BC, SELFPAY ==
--- NOTE | 2023-01-28 | CA_ITS ---
APPROVED REPORT Exam: Exercise Treadmill Technologist: Nickie Thompson, Ht: 5 ft 6 in Wt: 232 lbs BSA: 2.13 m2 HR: 83 bpm BP: 121/85 mmHg Rhythm: NSR Medical History Medical History: HTN, Diabetes Medications: Lisinopril,,,,, Aspirin,,,,, Metformin,,,,, Gabapentin,,,,, Hydrochlorothiazide,,,,, Ibuprofen,,,,, DulOXETINE,,,,, OxYbutynin,,,,, Methocarbamol,,,,, Phentermine,,,,, SeMaglutide,,,,, CHloride ER,,,,, Allergies: No known drug allergies Cardiac Risk Factors: HTN, Diabetes, FHX of CAD Stress Test Details Test: Chele, Exercise stress testing was performed using a modified Chele protocol. HR Resting HR: 92 bpm Max Heart Rate (APMHR): 163 bpm Max HR Achieved: 171 bpm Target HR (85% APMHR): 139 bpm % of APMHR: 105 Recovery HR: 92 bpm BP Resting BP: 126/83 mmHg Max BP: 181/80 mmHg Recovery BP: 135.0/75.0 mmHg ECG Resting ECG: NSR, T_wave changes in the inferolateral leads Stress ECG: <1 mm upsloping and horizontal ST depression Arrhythmia: Frequent VPC's Recovery ECG: Resolution of the ST depression Recovery Arrhythmia: VPC Clinical Reason for Termination: Leg fatgiue Exercise duration: 06:22 min Highest Stage Achieved: Exercise capacity: 7.0 METs Overall Exercise Capacity for Age: Average Stress ECG Conclusion TEST WAS STOPPED DUE TO LEG FATUGE. THE PATIENT DENIED ANY CHEST PAIN. THE PATIENT EXHIBITED AN AVERAGE EXERCISE TOLERANCE COMPARED TO AGE AND SEX MATCHED PEERS. AT BASELINE, ECG DEMONSTRATED NSR WITH BASELINE T-WAVE CHANGES IN THE INFEROLATERAL LEADS. AT PEAK STRESS, THERE WAS < [address]ONT[address] DEPRESSION AND FREQUENT PVCS. DURING RECOVERY, THE ST DEPRESSIONS RESOLVED. THERE WERE OCCASIONAL PVCS DURING RECOVERY. FINDINGS ARE SUGGESTIVE OF POSSIBLE ISCHEMIA. MYOVIEW IMAGES ARE REPORTED SEPARATELY. Test Summary REST . . . . . . . Sitting REST . . . . . . . Standing REST 03:05 0.0 0.0 92 . 126/ 83 . . Stage 1 01:00 10.0 1.7 125 . . . . Stage 1 02:00 10.0 1.7 141 . . . . Stage 1 03:00 10.0 1.7 147 . 128/ 82 . . Stage 2 01:00 12.0 2.5 155 . . . . Stage 2 02:00 12.0 2.5 171 . . . . Stage 2 03:00 12.0 2.5 155 . . . . Stage 3 00:22 14.0 3.4 158 . . . Stop exercise at 06:22 RECOVERY 01:00 0.0 0.0 157 . 140/ 80 . . RECOVERY 02:00 0.0 0.0 103 . 140/ 80 . . RECOVERY 03:00 0.0 0.0 95 . 140/ 80 . . RECOVERY 04:00 0.0 0.0 92 . 181/ 80 . . RECOVERY 05:00 0.0 0.0 95 . 181/ 80 . . RECOVERY 06:00 0.0 0.0 93 . 145/ 75 . . RECOVERY 07:00 0.0 0.0 94 . 135/ 75 . . RECOVERY 07:11 0.0 0.0 93 . 135/ 75 . . Electronically signed by : Maisha Hurtado, 01/31/2023 01:34:12
--- NOTE | 2023-01-28 06:56 | NM_ITS ---
APPROVED REPORT Exam: Nuclear Stress Test Indication: chest pain..fatigue Patient Location: Outpatient Stress Tech: Nickie Seals [place] Tech:Cici Hernandez LALIT RT(R)(N) Ht: 5 ft 6 in Wt: 235 lbs Bra Size: 46f HR: 92 bpm BP: 126/83 mmHg BSA: 2.14 m2 TID: 1.37 BMI: 37.9 History: chest pain..fatigue Procedure: Patient exercised on Chele protocol 6:22 minutes and sec, resting heart rate 92 bpm, resting blood pressure 126/83 mmHg, with exercise maximum heart rate achived was 171 bpm which is 105 % of the maximum predicted heart rate and blood pressure was 181/80 mmHg. Patient denied any complaint of chest pain. Patient has fair exercise capacity, achieved 7.0 METs of workload on treadmill, the blood pressure response to exercise was normal. Cardiac Stress and Resting SPECT Images: Cardiac Stress and Resting SPECT images were obtained using technetium 99m Myoview 30.3 mCi stress and 10.32 mCi at rest. Resting and stress imaging in both supine and prone positions demonstrate no evidence of fixed or reversible perfusion defects. There is increased transient ischemic dilatation ratio (TID 1.37) suggestive of possible balanced ischemia or multivessel disease. Gated imaging demonstrates normal global and regional LV systolic function. LVEF is calculated at 53% Conclusion: No evidence of fixed or reversible perfusion defects. There is increased transient ischemic dilatation ratio (TID 1.37) suggestive of possible balanced ischemia or multivessel disease. Gated imaging demonstrates normal global and regional LV systolic function. LVEF is calculated at 53% Electronically signed by : Maisha Hurtado, 01/28/2023 18:56:50
== END ==
LOC: RAD 06:47
PROVIDERS: PCP Nurse Practitioner Family; Visit Provider Physician Assistant
DX: R07.9 Chest pain, unspecified (principal); M79.604 Pain in right leg
CPT/HCPCS: 78452; 93017; A9502

== ENCOUNTER 2023-02-11 11:15 | Day surgery (SDC) | payer BC, SELFPAY ==
[2023-02-11] VITALS (12 sets, daily range): BP systolic 100–214; BP diastolic 74–147; PULSE 80–113; RESP 16–18; TEMP 36.6–36.7; O2SAT 93–99; BMI 38.0
--- NOTE | 2023-02-11 07:11 | IR_ITS ---
APPROVED REPORT Patient Location: Outpatient Box Feeder: LALIT Acuña RT (R) PROCEDURES Left heart catheterization Left ventriculogram Selective coronary angiogram FFR to the LAD INDICATION High risk abnormal Myoview, Angiographic ambiguity in the proximal LAD, Angina pectoris, Informed consent was obtained prior to the procedure. COMPLICATIONS None Estimated Blood Loss: Less than 10 mls TECHNIQUE One percent lidocaine used to anesthetize the right anterior aspect of the wrist. The right radial artery was accessed via the Seldinger technique. A 6 Yakut sheath was placed in the right radial artery. 150 mg magnesium sulfate, 800 mcg of nitroglycerin, 1mg Lidocaine and 5000 U Heparin were given through the arterial sheath. The papa catheter was also used to perform left heart catheterization, left ventriculogram and selective coronary angiogram. At the end the diagnostic angiogram therapeutic heparin was administered giving a therapeutic ACT and the guide catheter was placed in the left main artery followed by a Choice PT extra-support wire being placed distally in the LAD. A 3D Hubsus FFR catheter was equalized in the left main artery and then advanced into the mid LAD. Adenosine was infused per protocol and the FFR index dropped to 0.85. Given this did not meet hemodynamic significance the apparatus was removed the sheath was removed good hemostasis was achieved using TR banding patient was transferred to the postop holding in stable condition ANGIOGRAPHIC RESULTS The left main artery Normal The left anterior descending artery Has a long proximal 40% stenosis. The LAD is large caliber and wraps the apex The circumflex artery Is a dominant vessel and normal The right coronary artery Small nondominant normal The CONNOR ventriculogram reveals Hyperdynamic 75% The left ventricular end-diastolic pressure 20 to 25 mmHg IMPRESSION Moderate disease in the proximal LAD which produces an FFR index of 0.85 which is not hemodynamically significant for requiring revascularization Hyperdynamic ventricle with elevated LVEDP consistent with diastolic dysfunction likely secondary to hypertensive heart disease PLAN 1. LDL less than 55 to be achieved with high intensity statin 2. Maximize antianginal medications which should include beta-blockers and likely the addition of verapamil due to the hyperdynamic ventricle 3. Diuretics 4. Recommend sleep study 5. Aggressive risk factor modification Electronically signed by : Horacio Burnham MD 02/11/2023 13:41:52
[2023-02-11 12:29] LABS: Basophils % 0.6 % (0.1-2.0); Eosinophils # 0.1 K/mm3 (0.0-0.4); Hemoglobin 10.7 g/dL (12.2-16.2); Lymphocytes # 2.3 K/mm3 (0.7-4.5); Lymphocytes % 49.4 % (10-50); Mean Corpuscular HGB Conc 30.5 g/dL (31.8-35.4); Mean Corpuscular Hemoglobin 23.9 pg (27.0-31.2); Mean Corpuscular Volume 78.3 fl (81-99); Mean Platelet Volume 7.8 fl (7.4-10.4); Monocytes # 0.2 K/mm3 (0.1-1.0); Monocytes % 5.2 % (1.7-9.3); Neutrophils % 42.8 % (37.0-80.0); Platelet Count 313 K/mm3 (142-424); Red Blood Count 4.47 M/mm3 (4.20-5.40); Red Cell Distribution Width 17.2 % (11.5-17.5); White Blood Count 4.7 K/mm3 (4.8-10.8)
[2023-02-11 12:36] LABS: Anion Gap 12.3 mEq/L (5-15); Blood Urea Nitrogen 20 mg/dl (7-17); Calcium 9.1 mg/dl (8.4-10.2); Carbon Dioxide 32 mmol/L (22.0-30.0); Chloride 102 mmol/L (98-107); Creatinine Clearance Estimated 131 mL/min (50-200); Estimated Glomerular Filt Rate 74 ml/min (>60); GFR (African American) 89 ML/MIN (>60); Potassium 4.3 mmoL/L (3.5-5.1); Sodium 142 mmol/L (136-145)
[2023-02-11 12:37] LABS: Glucose 46 mg/dl (74-100)
--- NOTE | 2023-02-11 12:41 | SUR.PREOP ---
lab called with critical result glucose 46. fsbs obtained 54. dr mike notified. verbal order to give an amp of d50.
[2023-02-11 12:48] LABS: INR 0.93 (0.9-1.1); Prothrombin Time 10.1 seconds (10.1-12.5)
[2023-02-11 12:58] LABS: POC Glucose,Bedside 54 (70-110)
[2023-02-11 13:05] LABS: POC Glucose,Bedside 177 (70-110)
[2023-02-11 14:20] LABS: CATHL Activated Clotting Time 341 SEC (74-125)
== END 2023-02-11 16:25 | disposition home or self-care (01) ==
PROVIDERS: PCP Nurse Practitioner Family; Visit Provider Internal Medicine
DX: I11.9 Hypertensive heart disease without heart failure (principal); R07.9 Chest pain, unspecified; E11.42 Type 2 diabetes mellitus with diabetic polyneuropathy; R94.30 Abnormal result of cardiovascular function study, unspecified; Z79.4 Long term (current) use of insulin; Z79.899 Other long term (current) drug therapy; Z82.49 Family history of ischemic heart disease and other diseases of the circulatory system
CPT/HCPCS: 80048; 82962; 85025; 85347; 85610; 93458; 93571; 99152; C1725; C1769; J0153; J1644; Q9967

== ENCOUNTER → 2023-03-02 15:05 | Outpatient (CLI) | payer BC, SELFPAY | PROVIDERS: PCP Nurse Practitioner Family; Visit Provider Internal Medicine | DX: R06.00 Dyspnea, unspecified (principal); I25.10 Atherosclerotic heart disease of native coronary artery without angina pectoris; I10 Essential (primary) hypertension; E78.5 Hyperlipidemia, unspecified | CPT/HCPCS: 93306 ==

== ENCOUNTER 2023-03-09 09:01 | Day surgery (SDC) | payer BC, SELFPAY ==
[2023-02-07 14:28] VITALS: BMI 37.9
[2023-03-07 14:17] VITALS: BMI 37.9
[2023-03-09] VITALS (11 sets, daily range): BP systolic 115–134; BP diastolic 70–84; PULSE 61–87; RESP 15–18; TEMP 36.2–43; O2SAT 96–99
--- NOTE | 2023-03-09 10:14 | XR_ITS ---
FINAL REPORT CLINICAL HISTORY: cough COMPARISON: 01/04/2023 FINDINGS: SINGLE-VIEW CHEST The heart size is normal. The mediastinum is normal. There are stable left upper lobe nodules, favor granulomas. The lungs are otherwise clear. There is no pneumothorax. IMPRESSION: No acute cardiopulmonary process. Reviewed, Interpreted and Dictated by Arjun Aggarwal III, MD Transcribed by Tammie Motley Authenticated and [facility]
[2023-03-09 10:23] LABS: POC Glucose,Bedside 72 (70-110)
[2023-03-09 12:24] LABS: POC Glucose,Bedside 69 (70-110)
--- NOTE | 2023-03-09 13:40 | SUR.OPER ---
Pt's notified at this time by Kemi Colón RN at this time
--- NOTE | 2023-03-09 13:54 | SUR.OPER ---
1340- family updated by DM Hernandes @ this time
--- NOTE | 2023-03-09 14:37 | SUR.OPER ---
Pt updated by Toby Hayward RN at this time
--- NOTE | 2023-03-09 15:03 | SUR.OPER ---
FSBS 81 @ this time
--- NOTE | 2023-03-09 15:30 | XR_ITS ---
PROCEDURE INFORMATION: Exam: XR Left Foot Exam date and time: 03/09/2023 4:47 PM Age: 57 years old Clinical indication: Device placement; Other: Post op bunion; Additional info: Postop bunion, flatfoot TECHNIQUE: Imaging protocol: Radiologic exam of the left foot. Views: 3 or more views. COMPARISON: SD XR FOOT LT 2V 03/09/2023 3:30 PM FINDINGS: Tubes, catheters and devices: Fixation plates and screws overlie the dorsal naviculocuneiform joint and the cuneiform metatarsal joints. Overlying cast material. Bones/joints: Distal calcaneus osteotomy is in anatomic alignment transfixed by a single staple. Talus is well aligned without vertical orientation. Joint spaces are well preserved. Bunionectomy has been performed. No fractures or bone lesions. Soft tissues: Normal. IMPRESSION: Postoperative changes in the left foot as described above.
--- NOTE | 2023-03-09 15:42 | XR_ITS ---
FINAL REPORT CLINICAL HISTORY: LEFT FOOT orif , OR images 2.1 fluoro time FINDINGS: FLUOROSCOPY LESS THAN 1 HOUR HISTORY: Fluoroscopy guided injection. FINDINGS: Fluoroscopic guidance was provided for left foot ORIF. 3 spot films were obtained. 2.1 minutes of fluoroscopy time were used. IMPRESSION: As above. Reviewed, Interpreted and Dictated by Tammi Francisco MD Transcribed by Greta Ruiz Authenticated and [facility]
--- NOTE | 2023-03-09 15:53 | SUR.OPER ---
family updated at this time by Ysabel Hayward RN
--- NOTE | 2023-03-09 16:09 | SUR.OPER ---
family updated at this time by berkley dudley
--- NOTE | 2023-03-09 16:21 | EXP.ANES.I ---
[facility] Anesthesia Record Part I Anesthesia Record I Intake, IV Amount: 1,600 Estimated blood loss (mL): 50 Urine output (mL): 800 Blood Pressure: 115/70 SaO2: 96 Pulse Rate: 71 Respiratory Rate: 15 Temperature: 97.6 F Patient is:: Drowsy and Oral/Nasal airway Stable to PACU at:: 16:20
--- NOTE | 2023-03-09 16:25 | P.PN_ITS ---
[facility] Disclaimer: The information contained in this section may have been updated after the patient was seen, as this information can be updated by other users. Medical History Abnormal result of cardiovascular function study Coronary artery disease Dyspnea Encounter for pre-operative cardiovascular clearance History of seizures HLD (hyperlipidemia) HTN (hypertension) Severe obesity (BMI 35.0-39.9) with comorbidity Sleep apnea Surgical History History of back surgery History of right heart catheterization (RHC) Hx of hysterectomy Family History Other Family history of diabetes mellitus type II Family history of hypertension Social History Smoking Status: Never smoker alcohol intake: never substance use type: denies use current occupational status: employed Travel in the last 8 weeks: None household members: spouse housing: house current occupational exposures/hazards: Yes caffeine: No [facility] Anesthesia Checklist Patient Identification Patient Identification: Arm Band and Verbal (Name & ) Structural Data Admitted From: Home Planned Operative Procedure/s: Lapidus bunionectomy Consent for Planned Operative Procedure(s) Verified: Yes NPO Status Verified Time NPO: 00:00 Chart Verification Results Verified: CBC and BMP Additional verifications Anesthesia Reactions: No Hx Blood Transfusions: No Blood Transfusion Reaction: No Airway Assessment C-Spine Mobility Assessed: Yes TMJ Mobility Assessed: Yes Dentition: Good Dentition Neurological Assessment Level of Consciousness: Awake Hx Seizures: Yes Numbness or tingling in extremities: No Anesthesia Plan Anesthesia Risk discussed: Yes Anesthesia Plan: Verified ASA Class: III Anesthesia Type: General w/block
[2023-03-09 16:33] LABS: POC Glucose,Bedside 99 (70-110)
--- NOTE | 2023-03-09 16:41 | EXP.OP.NOTE ---
Date of procedure: 03/09/23 Pre-op Diagnosis:: Left flatfoot/pes planus deformity Left foot osteoarthritis Left hallux valgus Left foot hammertoes Post-op Diagnosis:: Same Procedure performed:: Left: Multiple midtarsal joint arthrodesis (flatfoot correction-[id number]) Shields calcaneal osteotomy Navicular-cuneiform joint fusion Lapidus bunionectomy Posterior tibial tenosynovectomy Autograft bone harvest Surgeon:: Maureen Reyna DPM Tank Tender(s):: Dr Vasquez Mcmahon AUT[employer] BODY SHOP MANAGER:: Villa Pope Anesthesia: GETA and regional (L popliteal nerve block) Estimated blood loss (mL): 50 Clinical Note:: Patient is a 57-year-old diabetic female who presents with worsening left bunion and midfoot pain worsening over the last few years. Conservative care has included modification of shoe gear, modification of activity, taping, strapping, inserts, RICE protocol, NSAIDs, steroid injections, stretching without much change in symptoms. After a long discussion with the patient in regards to the conservative versus surgical treatment for the arthritic deformity, bunion and flatfoot, the patient has elected to proceed with surgery because they have failed conservative treatment and continue to have pain and worsening symptoms affecting daily activities. The patient has been instructed on the planned procedure including lapiplasty, adductoplasty and midfoot fusion with possible tendon repair and gastroc lengthening. All risk versus benefits of the procedure discussed. These include but are not limited to: bleeding, infection, nerve and blood vessel damage, need for further surgery, delay in healing of soft tissue or bone, failure of bones to heal, non-union, mal-union, failure of the implant, recurrence of deformity, prolonged pain and recovery, prolonged versus permanent pain and swelling, CRPS/RSD, DVT/PE and anesthetic complications. No guarantees were given. All questions fully answered. The patient verbalized understanding and agreed to proceed with surgery. Written consent was obtained. Does not smoke, denies personal and family history of DVT/PE. Recommend aspirin 81mg post op ppx. Necessary labs and pre-op testing ordered: CBC, CMP, vit D, Ha1c, CXR, EKG. Medical clearance granted by Natalie Mcnulty. Will need Rx for Oxy, Zofran 4mg, Motrin 800mg. 01/04/23: wbc 4.2, esr 45, crp 3.6, cr 0.9, gfr 65, glucose 72, uric acid 7.1, Ha1c 6.7%. Chest x-ray wnl. Operative findings:: Left flat foot deformity. Bunion with hypermobile unstable 1st metatarsal cuneiform joint. Met adductus noted. Degenerative arthritic changes noted to the 2-3rd TMT joints. Some irregularity and sclerotic changes noted to the navicular cuneiform joint. Operative note:: On this date and time, the patient was deemed an appropriate surgical candidate. With informed consent signed, the patient was taken to the operating theater after anesthesia did a regional nerve block. The patient was positioned supine. General anesthesia was induced. Tourniquet was applied to the thigh. The left lower extremity was prepped and draped in normal sterile fashion. IV Ancef infused. Left calcaneal autograft bone harvest: Attention was directed to the lateral calcaneus where a an incision was mapped out. Dissection was carried down full-thickness to the level of the bone. Utilizing an autograft bone harvester drill was inserted into the calcaneus and drill. Approximately 10 cc of calcaneus cancellous bone was obtained. Wound was flushed with saline. Nylon used to close the skin. Left Shields calcaneal osteotomy: The tourniquet was inflated at 250 mmHg. Attention was directed to the lateral foot where the calcaneocuboid joint was mapped out under intraoperative fluoroscopy. The incision was made longitudinally superior but in line with the peroneal tendons. Dissection was carried through skin to subcutaneous tissue with care taken to maintain surgical hemostasis and safely retract neurovascular structures. The extensor digitor
[2023-03-09 20:09] LABS: POC Glucose,Bedside 81 (70-110)
[2023-03-09 20:58] LABS: Microscopic,Cath URINE MICROSCOPIC (MICROSCOPIC)
[2023-03-09 21:11] LABS: Appearance,Urine/Cath CLEAR (Clear); Bilirubin,Cath Negative (Negative); Blood, Urine/Cath Negative (Negative); Color,Urine/Cath YELLOW (Yellow); Glucose,Urine/Cath (UA) Negative (Negative); Ketones,Urine/Cath Negative (Negative); Leukocyte Esterase,Cath Negative (Negative); Nitrate,Cath Negative (Negative); PH,Urine/Cath 6.5 (5.0-8.5); Protein,Urine/Cath Negative (Negative); Specific Gravity, Urine/Cath 1.015 (1.005-1.030); Urobilinogen,Cath 0.2 EU/dl (0.2)
--- NOTE | 2023-03-10 07:09 | EXP.ANES.II ---
[facility] Anesthesia Record Part II Anesthesia Record Part II Discharge Time: 16:50 Destination: Surgical Day Care (OP Surgery) PACU nurse assessment reviewed?: Yes Patient Condition:: Good Anesthesia Complications:: None Swallowing reflex intact?: Yes Cyanosis?: No Blood Pressure: 125/84 Pulse Rate: 86 Temperature: 98.5 F Mental Status: Alert & Oriented Pain level:: 0 Nausea and/or vomitting:: None Intake, IV Amount: 0
[2023-03-10 07:11] VITALS: BP 125/84; PULSE 86
[2023-03-10 07:13] VITALS: TEMP 36.9
== END 2023-03-09 17:48 | disposition home or self-care (01) ==
PROVIDERS: PCP Nurse Practitioner Family; Visit Provider Podiatrist
PROC: (CPT 28297; principal; 2023-03-09 10:45)
DX: M19.072 Primary osteoarthritis, left ankle and foot (principal); M76.822 Posterior tibial tendinitis, left leg; M20.12 Hallux valgus (acquired), left foot; M21.42 Flat foot [pes planus] (acquired), left foot; M25.572 Pain in left ankle and joints of left foot; M21.6X2 Other acquired deformities of left foot; E11.42 Type 2 diabetes mellitus with diabetic polyneuropathy; I25.10 Atherosclerotic heart disease of native coronary artery without angina pectoris; I10 Essential (primary) hypertension; E78.5 Hyperlipidemia, unspecified; Z79.84 Long term (current) use of oral hypoglycemic drugs; Z79.899 Other long term (current) drug therapy
CPT/HCPCS: 28297; 28300; 27626; 28086; 20900; 27658; 71045; 73620; 73630; 81001; 82962; 96374; C1713; C1734; C1776; C9399; J2405

== ENCOUNTER → 2023-03-22 23:14 | Outpatient (CLI) | payer BC, SELFPAY | PROVIDERS: PCP Nurse Practitioner Family; Visit Provider Podiatrist | DX: M79.672 Pain in left foot (principal); Z98.890 Other specified postprocedural states; B96.89 Other specified bacterial agents as the cause of diseases classified elsewhere | CPT/HCPCS: 87070; 87077; 87205 ==

== ENCOUNTER → 2023-04-06 07:42 | Outpatient (CLI) | payer BC, SELFPAY ==
--- NOTE | 2023-04-06 07:50 | XR_ITS ---
FINAL REPORT CLINICAL HISTORY: left foot post-op, pain COMPARISON: 03/09/2023 FINDINGS: LEFT FOOT: Three views of the left foot were obtained. There are postoperative changes in the midfoot and rear foot. There are multiple screw plates and screws. Postoperative changes from calcaneal osteotomy. Mild degenerative change. Small plantar calcaneal spur. There is soft tissue swelling medial to the head of the first metatarsal with small calcification. IMPRESSION: Postoperative and degenerative changes without acute bony abnormality. Soft tissue swelling medial to the head of the first metatarsal. Reviewed, Interpreted and Dictated by Arjun Aggarwal III, MD Transcribed by Greta Ruiz Authenticated and [facility]
== END ==
PROVIDERS: PCP Nurse Practitioner Family; Visit Provider Podiatrist
DX: M79.672 Pain in left foot (principal); G89.18 Other acute postprocedural pain; Z98.890 Other specified postprocedural states
CPT/HCPCS: 73630

== ENCOUNTER → 2023-04-26 11:04 | Outpatient (CLI) | payer BC, SELFPAY ==
[2023-04-26 16:38] LABS: Anion Gap 16.7 mEq/L (5-15); Blood Urea Nitrogen 15 mg/dl (7-17); Calcium 9.7 mg/dl (8.4-10.2); Carbon Dioxide 32 mmol/L (22.0-30.0); Chloride 99 mmol/L (98-107); Estimated Glomerular Filt Rate 46 ml/min (>60); GFR (African American) 56 ML/MIN (>60); Glucose 94 mg/dl (74-100); Potassium 4.7 mmoL/L (3.5-5.1); Sodium 143 mmol/L (136-145)
[2023-04-27 12:14] LABS: Hemoglobin A1C 7.4 % (4.0-6.0)
== END ==
PROVIDERS: PCP Nurse Practitioner Family; Visit Provider Physician Assistant
DX: I10 Essential (primary) hypertension (principal); E11.40 Type 2 diabetes mellitus with diabetic neuropathy, unspecified; Z79.4 Long term (current) use of insulin
CPT/HCPCS: 36415; 80048; 83036

== ENCOUNTER → 2023-05-05 10:33 | Outpatient (CLI) | payer BC, SELFPAY ==
--- NOTE | 2023-05-05 10:54 | XR_ITS ---
FINAL REPORT CLINICAL HISTORY: postoperative LT FOOT F/U COMPARISON: 03/09/2023 FINDINGS: LEFT FOOT: Three views of the left foot were obtained. There are postoperative changes in the medial and mid portions of the midfoot, with orthopedic plates and screws present. There has also been a distal calcaneal osteotomy performed. There is no acute fracture or dislocation. The joint spaces are intact. There is soft tissue swelling medial to the first MTP joint. IMPRESSION: Postoperative changes as described. Soft tissue swelling medial to the first MTP articulation. Reviewed, Interpreted and Dictated by Arjun Aggarwal III, MD Transcribed by Leda Ortiz Authenticated and [facility]
[2023-05-05 11:01] LABS: Basophils % 0.6 % (0.1-2.0); Eosinophils # 0.2 K/mm3 (0.0-0.4); Eosinophils % 3.1 % (0.1-12.0); Hematocrit 34.1 % (37.0-47.0); Hemoglobin 10.6 g/dL (12.2-16.2); Lymphocytes # 2.8 K/mm3 (0.7-4.5); Lymphocytes % 50.9 % (10-50); Mean Corpuscular HGB Conc 31.1 g/dL (31.8-35.4); Mean Corpuscular Hemoglobin 24.6 pg (27.0-31.2); Mean Platelet Volume 8.3 fl (7.4-10.4); Monocytes # 0.3 K/mm3 (0.1-1.0); Monocytes % 4.7 % (1.7-9.3); Neutrophils # 2.3 K/mm3 (1.8-7.8); Neutrophils % 40.6 % (37.0-80.0); Platelet Count 371 K/mm3 (142-424); Red Blood Count 4.32 M/mm3 (4.20-5.40); Red Cell Distribution Width 17.8 % (11.5-17.5); White Blood Count 5.5 K/mm3 (4.8-10.8)
[2023-05-05 11:03] LABS: MANUAL DIFFERENTIAL MANUAL DIFFERENTIAL (MANUAL DIFF)
[2023-05-05 11:09] LABS: Eosinophils % 1 % (0-3); Lymphocytes % 53 % (10-50); Monocytes % 11 % (2-9); Neutrophils % 35 % (42-76); Platelet Estimate Normal; RBC Morphology Normal; Total Cells Counted 100
[2023-05-05 11:27] LABS: Erythrocyte Sedimentation Rate 73 mm/hr (0-30)
[2023-05-05 11:47] LABS: Alanine Aminotransferase 21 U/L (12-78); Albumin Level 4.4 g/dl (3.5-5.0); Albumin/Globulin Ratio 1.3 (1.1-1.8); Alkaline Phosphatase 135 U/L (38-126); Anion Gap 12.3 mEq/L (5-15); Aspartate Amino Transferase 29 U/L (14-36); Bilirubin,Total 0.7 mg/dl (0.2-1.3); Blood Urea Nitrogen 20 mg/dl (7-17); Calcium 9.5 mg/dl (8.4-10.2); Carbon Dioxide 31 mmol/L (22.0-30.0); Chloride 99 mmol/L (98-107); Estimated Glomerular Filt Rate 57 ml/min (>60); GFR (African American) 69 ML/MIN (>60); Globulin 3.3 g/dL (1.3-3.2); Glucose 172 mg/dl (74-100); Potassium 4.3 mmoL/L (3.5-5.1); Sodium 138 mmol/L (136-145); Total Protein,Serum 7.7 g/dl (6.3-8.2)
[2023-05-05 11:53] LABS: C-Reactive Protein 3.1 mg/L (0-4)
== END ==
PROVIDERS: PCP Nurse Practitioner Family; Visit Provider Nurse Practitioner Family
DX: G89.18 Other acute postprocedural pain (principal); M79.672 Pain in left foot; T81.31XD Disruption of external operation (surgical) wound, not elsewhere classified, subsequent encounter; T81.31XA Disruption of external operation (surgical) wound, not elsewhere classified, initial encounter; T81.49XA Infection following a procedure, other surgical site, initial encounter; B96.89 Other specified bacterial agents as the cause of diseases classified elsewhere
CPT/HCPCS: 36415; 73630; 80053; 85007; 85025; 85651; 86140; 87070; 87077; 87186; 87205

== ENCOUNTER 2023-05-06 08:18 | Day surgery (SDC) | payer BC, SELFPAY ==
[2023-05-03 16:56] VITALS: BMI 37.9
--- NOTE | 2023-05-06 08:13 | MM_ITS ---
PROCEDURE INFORMATION: Exam: MG Left Diagnostic Breast Tomosynthesis Exam date and time: 05/06/2023 8:04 AM Age: 57 years old Clinical indication: Screening and continued six-month follow-up for architectural distortion in the right upper outer breast since 05/20/2021, 06/02/2021, and 11/03/2021. TECHNIQUE: Imaging protocol: Left Diagnostic tomosynthesis and 2D mammography including computer-aided detection (CAD) when performed. Unilateral or bilateral exam. COMPARISON: 1. MG MM DIG MAMM BI DX W/CAD 11/03/2021 1:29 PM 2. MG MM DIG MAMM BI DX W/CAD 05/20/2021 2:31 PM 3. MG MM DIG MAMM DX UNILAT LT CAD 05/28/2020 1:44 PM 4. MG MM DIG SCREENING MAMM BI W/CAD 05/16/2020 4:58 PM FINDINGS: MAMMOGRAPHY: Breast composition: The breasts are heterogeneously dense, which may obscure small masses. Mass: None. Architectural distortion: Stable diffuse bilateral architectural distortion with history of reduction mammoplasty, with particular attention to the right upper outer quadrant posterior 3rd. Calcifications: No suspicious calcifications. Asymmetric density: None. Skin thickening: None. Axillary adenopathy: None. IMPRESSION: See comment Pattern of architectural distortion, with history of reduction mammoplasty, appears stable since 11/03/2021, continued six-month follow-up right diagnostic mammography is recommended, unless otherwise clinically indicated. Please note that right sonography was advised at 11/03/2021, if this is not been performed in the interval, consider recall for right sonography at this time. ASSESSMENT: BI-RADS Category 3: Probably benign
--- NOTE | 2023-05-06 09:09 | ECG_ITS ---
APPROVED REPORT Exam: Resting ECG HR:89 bpm ECG Measurements Heart Rate 89 AXES NH 171 P 41 QRSd 88 QRS -6 QT 381 T 17 QTc 428 Conclusion SINUS RHYTHM POSSIBLE LEFT ATRIAL ENLARGEMENT [-0.1mV P-WAVE IN V1/V2] LOW QRS VOLTAGE IN PRECORDIAL LEADS [QRS DEFLECTION < 1.0 mV IN CHEST LEADS] POSSIBLE RIGHT VENTRICULAR CONDUCTION DELAY [RSR (QR) IN V1/V2] SEPTAL MYOCARDIAL INFARCTION , OF INDETERMINATE AGE [40+ ms Q WAVE IN V1/V2] ABNORMAL ECG UNCONFIRMED REPORT Electronically signed by : Luis Weber MD 05/06/2023 16:49:11
--- NOTE | 2023-05-06 09:09 | XR_ITS ---
FINAL REPORT CLINICAL HISTORY: preop order age over 50, foot debriment COMPARISON: 03/09/2023 FINDINGS: A single portable view of the chest was obtained. The heart size and pulmonary vascularity are within normal limits. The mediastinum is within normal limits. No acute pulmonary abnormality is identified. The bony thorax is intact. IMPRESSION: No active cardiopulmonary disease. Reviewed, Interpreted and Dictated by Arjun Aggarwal III, MD Transcribed by Greta Ruiz Authenticated and . [facility]
[2023-05-06 09:22] VITALS: BP 125/73; PULSE 87; RESP 18; O2SAT 98
[2023-05-06 09:24] LABS: POC Glucose,Bedside 125 (70-110)
--- NOTE | 2023-05-06 09:40 | SUR.PREOP ---
0940- Surgery cancelled per Dr Mcmahon due to changes in pre op ekg. Pt reported having chest pain on Tuesday and took a ASA 325mg.
--- NOTE | 2023-05-06 10:15 | SUR.PREOP ---
947 - Surgery cancelled per Dr Mcmahon due to changes in pre op ekg. Pt reported having chest pain on Tuesday and took a ASA 325mg.
--- NOTE | 2023-05-06 10:41 | SUR.PREOP ---
0969 spoke to Yola RN in cardiology, report given regarding patient and why surgery was being cancelled. she stated Vanessa Blanchard could see her today and to bring her down.
--- NOTE | 2023-05-06 10:47 | EXP.ANES.CKL ---
[facility] Disclaimer: The information contained in this section may have been updated after the patient was seen, as this information can be updated by other users. Medical History Abnormal result of cardiovascular function study Coronary artery disease Dyspnea Encounter for pre-operative cardiovascular clearance History of seizures HLD (hyperlipidemia) HTN (hypertension) Severe obesity (BMI 35.0-39.9) with comorbidity Sleep apnea Uncontrolled diabetes mellitus Surgical History History of back surgery History of right heart catheterization (RHC) Hx of hysterectomy Family History Other Family history of diabetes mellitus type II Family history of hypertension Social History Smoking Status: Never smoker alcohol intake: never substance use type: denies use current occupational status: employed Travel in the last 8 weeks: None household members: spouse housing: house current occupational exposures/hazards: Yes caffeine: No [facility] Anesthesia Checklist Patient Identification Patient Identification: Arm Band and Verbal (Name & ) Structural Data Admitted From: Home Planned Operative Procedure/s: Wound debridement Consent for Planned Operative Procedure(s) Verified: Yes NPO Status Verified Time NPO: 00:00 Additional verifications Anesthesia Reactions: Yes (PT REPORTS HARD TO WAKE UP AFTER LAST PROCEDURE) Hx Blood Transfusions: No Blood Transfusion Reaction: No Airway Assessment Mallampati Score:: Class III C-Spine Mobility Assessed: Yes TMJ Mobility Assessed: Yes Dentition: Good Dentition Neurological Assessment Level of Consciousness: Awake Hx Seizures: No Numbness or tingling in extremities: No Anesthesia Plan Anesthesia Risk discussed: Yes Anesthesia Plan: Verified ASA Class: III Anesthesia Type: MAC Preoperative Comments Pre-Operative Comments: Procedure cancelled per Dr. Mcmahon and patient sent for cardiology clearance due to EKG changes since last EKG on 04/21. Patient states that she had severe chest pain on Tuesday and was barely able to walk to the kitchen to take 325mg ASA. States that chest pain subsided after ASA.
--- NOTE | 2023-05-06 10:51 | SUR.PREOP ---
I spoke with in regards to pt's surgical clearance and he stated concern that surgical staff noted a recent EKG change and episode of chest pain reported by the pt on 05/05. Pt was sent to cardiology office for clearance and eventually was cleared per . said he was ok to do the surgery as long as anesthesia was onboard as well. spoke with VALERIY Oscar and everyone agreed to proceed with the procedure. Pt was brought up to pre-op by cardiology staff via and pt was prepared for sx at 1047. Sx staff contacted to update him as well.
[2023-05-06 14:55] VITALS: BP 126/76; PULSE 92; RESP 15; TEMP 36.8; O2SAT 98
--- NOTE | 2023-05-06 15:02 | EXP.OP.NOTE ---
Date of procedure: 05/06/23 Pre-op Diagnosis:: Left foot wound dorsal foot, dehiscence, diabetic over first metatarsal-cuneiform fusion site. Post-op Diagnosis:: same Procedure performed:: Deep excisional wound debridement 78993/15617 fascial level debridement using tissue nippers, currettes to post measurements of 7.6cm x 2.8cm x 1cm deep, touching plate. Surgeon:: Vasquez Mcmahon DPM BOBBIN DUMPER:: Other Anesthesia: MAC and local Estimated blood loss (mL): 5 Operative findings:: refer to note Operative note:: Patient seen in preoperative holding area this morning. After initial assessment, patient was in good spirits and had no acute signs of distress and was feeling good. EKG performed today, preoperatively, with noticeable changes since most recent EKG, patient then reports that on Tuesday she experieced chest pains, so procedure was placed on hold, and patient was evaluated by cardiology and cleared medically by Dr. Burnham, for the wound debridement procedure. Decision to proceed was made by a team of physicians and nurses and personnel of [facility]. Patient and want to proceed as well; and are comfortable with the discussion they've had with cardiology, anesthesia, and podiatry. They understand the risks associated today. Patient wheeled into the operating room and positioned supine to the O.R. table. Foot was scrubbed with Hibiclens by myself, with scrub brush to help exfoliate dry skin of foot. Then rinsed and another full scrub, prep and drape was performed by circulating nurse. Timeout was given. Attention was directed to the left foot dorsal foot wound, site of dehiscence over the recently fused first metatarsal-cuneiform Lapiplasty. Wound has necrotic fascia tissue, but other tissues are viable and healthy in appearance with no odor, no purulence, no cellulitis. Metal plate is exposed. Wound measures 7.2cm x 2.5cm wide x 8mm deep initially; excisional debridement of all necrotic fascia, tissues performed with tissue nippers and currette to post measurements of 7.6cm x 2.8cm x 1cm. Rinsed with copious amounts of saline. Then Rongeur used to excise deep fascia tissue culture. Decision to leave hardware at this time, covered with Black foam and Cork negative pressure wound system. Covered outer dressings with Kerlix roll, elastic outer bandage. Patient tolerated procedure and anesthesia well. Wheeled to same day surgery, as stable with no complications. Wound Care to be implemented with wound care center as well as podiatry for dressing changes and changing the Cork wound vac system. Explained to patient and that hardware may have to be removed in near future, if coverage doesn't fill in; and wound graft is in her future as well for closure. Risk of infection, wound revisions, and patient to follow closely with cardiology. Tourniquet time (min): 0 Condition: stable Disposition: same day Specimens:: Dep tissue culture Complications:: negative
[2023-05-06 15:05] VITALS: BP 148/88; PULSE 87; RESP 16; O2SAT 98
[2023-05-06 15:15] VITALS: BP 127/74; PULSE 89; RESP 18; O2SAT 100
[2023-05-06 15:25] VITALS: BP 141/84; PULSE 86; RESP 17; O2SAT 98
--- NOTE | 2023-05-06 15:37 | SUR.PHASEII ---
vo per dr. terrazas pt to continue all home medications
[2023-05-06 15:45] VITALS: BP 148/87; PULSE 85; RESP 17; O2SAT 98
== END 2023-05-06 16:00 | disposition home or self-care (01) ==
PROVIDERS: PCP Nurse Practitioner Family; Visit Provider Podiatrist
PROC: (CPT 11044; principal; 2023-05-06 10:15)
DX: T81.31XA Disruption of external operation (surgical) wound, not elsewhere classified, initial encounter (principal); E11.9 Type 2 diabetes mellitus without complications; I10 Essential (primary) hypertension; E78.5 Hyperlipidemia, unspecified; Z79.4 Long term (current) use of insulin; Z79.899 Other long term (current) drug therapy; Z12.31 Encounter for screening mammogram for malignant neoplasm of breast
CPT/HCPCS: 11044; 11047; 71045; 77063; 77067; 82962; 87070; 87205; 93005; 96374; J0690; J2405

== ENCOUNTER → 2023-06-13 23:20 | Outpatient (CLI) | payer BC, SELFPAY | PROVIDERS: PCP Nurse Practitioner Family; Visit Provider Podiatrist | DX: S91.302A Unspecified open wound, left foot, initial encounter (principal); B96.89 Other specified bacterial agents as the cause of diseases classified elsewhere | CPT/HCPCS: 87070; 87205 ==

== ENCOUNTER → 2023-06-17 13:02 | Outpatient (CLI) | payer BC, SELFPAY ==
--- NOTE | 2023-06-17 13:06 | XR_ITS ---
FINAL REPORT CLINICAL HISTORY: SPV-right foot bunion COMPARISON: 04/24/2022 FINDINGS: RIGHT FOOT: Three views of the right foot were obtained. There is no acute fracture or dislocation. There is a hallux valgus deformity present unchanged since the prior exam. Mild degenerative changes present as well as a pes planus deformity. A plantar calcaneal spur is once again noted. There is no soft tissue abnormality. IMPRESSION: No acute bony abnormality, degenerative changes as noted on prior right foot films. Reviewed, Interpreted and Dictated by Arjun Aggarwal III, MD Transcribed by Leda Ortiz Authenticated and [facility]
--- NOTE | 2023-06-17 13:06 | XR_ITS ---
FINAL REPORT CLINICAL HISTORY: postop left foot wound COMPARISON: 05/05/2023 FINDINGS: LEFT FOOT: Three views of the LEFT foot were obtained. There is no acute fracture or dislocation. The patient has undergone fusion at the articulations of the metatarsals in the midfoot. The hardware positioning is unchanged from the prior films of April. There is evidence of an osteotomy in the distal calcaneus, with a stable bridging the osteotomy fragments. Pes planus deformity is present. There is a plantar calcaneal spur. The joint spaces are intact. IMPRESSION: Postoperative changes as described, without any significant change in positioning of the hardware since the prior films of May 05. Reviewed, Interpreted and Dictated by Arjun Aggarwal III, MD Transcribed by Leda Ortiz Authenticated and [facility]
[2023-06-17 14:14] LABS: Basophils # 0.1 K/mm3 (0-0.2); Basophils % 0.8 % (0.1-2.0); Eosinophils # 0.2 K/mm3 (0.0-0.4); Eosinophils % 2.7 % (0.1-12.0); Hematocrit 33.7 % (37.0-47.0); Lymphocytes # 3.2 K/mm3 (0.7-4.5); Lymphocytes % 51.6 % (10-50); Mean Corpuscular HGB Conc 32.8 g/dL (31.8-35.4); Mean Corpuscular Hemoglobin 25.6 pg (27.0-31.2); Mean Corpuscular Volume 78.2 fl (81-99); Mean Platelet Volume 8.5 fl (7.4-10.4); Monocytes # 0.2 K/mm3 (0.1-1.0); Monocytes % 3.8 % (1.7-9.3); Neutrophils # 2.5 K/mm3 (1.8-7.8); Neutrophils % 41.1 % (37.0-80.0); Platelet Count 339 K/mm3 (142-424); Red Blood Count 4.31 M/mm3 (4.20-5.40); Red Cell Distribution Width 17.8 % (11.5-17.5); White Blood Count 6.1 K/mm3 (4.8-10.8)
[2023-06-17 14:26] LABS: MANUAL DIFFERENTIAL MANUAL DIFFERENTIAL (MANUAL DIFF)
[2023-06-17 14:34] LABS: Alanine Aminotransferase 28 U/L (12-78); Albumin Level 4.2 g/dl (3.5-5.0); Albumin/Globulin Ratio 1.3 (1.1-1.8); Alkaline Phosphatase 98 U/L (38-126); Anion Gap 11.9 mEq/L (5-15); Aspartate Amino Transferase 37 U/L (14-36); Bilirubin,Total 0.6 mg/dl (0.2-1.3); Blood Urea Nitrogen 24 mg/dl (7-17); Calcium 10.3 mg/dl (8.4-10.2); Carbon Dioxide 31 mmol/L (22.0-30.0); Chloride 100 mmol/L (98-107); Estimated Glomerular Filt Rate 74 ml/min (>60); GFR (African American) 89 ML/MIN (>60); Globulin 3.3 g/dL (1.3-3.2); Glucose 113 mg/dl (74-100); Potassium 3.9 mmoL/L (3.5-5.1); Sodium 139 mmol/L (136-145); Total Protein,Serum 7.5 g/dl (6.3-8.2)
[2023-06-17 14:41] LABS: C-Reactive Protein 5.6 mg/L (0-4)
[2023-06-17 14:43] LABS: Erythrocyte Sedimentation Rate 75 mm/hr (0-30)
[2023-06-17 15:37] LABS: Hemoglobin A1C 7.3 % (4.0-6.0)
[2023-06-17 16:30] LABS: Eosinophils % 2 % (0-3); Lymphocytes % 53 % (10-50); Monocytes % 3 % (2-9); Neutrophils % 42 % (42-76); Total Cells Counted 100
[2023-06-17 16:31] LABS: Hypochromasia 1+; Microcytosis 1+; Platelet Estimate Normal
[2023-06-28 22:39] LABS: 1,25 Dihydroxy Vitamin D 54 pg/mL (.); 1,25-Dihydroxy, Vitamin D-2 <10 pg/mL (.); 1,25-Dihydroxy, Vitamin D-3 48 pg/mL (.)
== END ==
PROVIDERS: PCP Nurse Practitioner Family; Visit Provider Podiatrist
DX: S91.302A Unspecified open wound, left foot, initial encounter (principal); T81.31XA Disruption of external operation (surgical) wound, not elsewhere classified, initial encounter; M20.11 Hallux valgus (acquired), right foot; M20.12 Hallux valgus (acquired), left foot; M25.571 Pain in right ankle and joints of right foot; M25.572 Pain in left ankle and joints of left foot; M85.89 Other specified disorders of bone density and structure, multiple sites
CPT/HCPCS: 36415; 73630; 80053; 82652; 83036; 85007; 85025; 85651; 86140

== ENCOUNTER → 2023-07-19 09:20 | Outpatient (CLI) | payer BC, SELFPAY ==
--- NOTE | 2023-07-19 09:48 | XR_ITS ---
FINAL REPORT CLINICAL HISTORY: Post op medial sided pain FINDINGS: 3 views of the left foot were obtained. There is no acute fracture or dislocation. There is postoperative change of the midfoot and rear foot with multiple side plates and screws. There is a surgical staple in the calcaneus. There are mild degenerative changes. There is a plantar calcaneal spur. There are soft tissue calcifications medial to the foot. There is soft tissue swelling of the midfoot. IMPRESSION: Postoperative changes. Reviewed, Interpreted and Dictated by Arjun Aggarwal III, MD Transcribed by Cahndra Travis Authenticated and [facility]
[2023-07-19 10:02] LABS: Blood Urea Nitrogen 21 mg/dl (7-17); Estimated Glomerular Filt Rate 74 ml/min (>60); GFR (African American) 89 ML/MIN (>60)
--- NOTE | 2023-07-19 10:13 | CT_ITS ---
FINAL REPORT CLINICAL HISTORY: LLE non healing wound, BLE claudication COMPARISON: None FINDINGS: Thin section axial CT images of the abdomen, pelvis and lower extremities were obtained with contrast. Multiplanar reformatted images were also obtained and reviewed. ABDOMEN AND PELVIS: There is no abdominal aortic aneurysm or dissection in the portions of the mid and aorta visualized. The origins of the celiac axis, superior mesenteric artery, inferior mesenteric artery, and renal arteries are not seen on this examination. There is no significant stenosis of the right common iliac artery or external right iliac artery. There is no significant stenosis of the left common iliac artery or external left iliac artery. The internal iliac arteries are patent. RIGHT LOWER EXTREMITY: There is no significant stenosis of the right common femoral or superficial femoral arteries. The right deep femoral artery is patent. The right popliteal artery is patent. There is three-vessel runoff to the distal lower leg. LEFT LOWER EXTREMITY: There is no significant stenosis of the left common femoral or superficial femoral arteries. The left deep femoral artery is patent. The left popliteal artery is patent. There is three-vessel runoff to the distal lower leg. OTHER FINDINGS: There are postoperative changes present in the left foot with multiple plates and screws present. IMPRESSION: Examination is limited to the infrarenal aortic artery to the ankles. No significant vascular disease is identified. Reviewed, Interpreted and Dictated by Arjun Aggarwal III, MD Transcribed by Leda Ortiz Authenticated and . [facility]
== END ==
PROVIDERS: PCP Nurse Practitioner Family; Visit Provider Physician Assistant
DX: M79.672 Pain in left foot (principal); S91.302A Unspecified open wound, left foot, initial encounter; T81.31XA Disruption of external operation (surgical) wound, not elsewhere classified, initial encounter; I73.9 Peripheral vascular disease, unspecified
CPT/HCPCS: 36415; 73630; 73701; 82565; 84520; Q9967

== ENCOUNTER 2023-07-29 08:00 | Outpatient (RCR) | payer BC, SELFPAY ==
--- NOTE | 2023-04-14 13:28 | HMH.PTOPWND ---
Rehab Outpt Wound Evaluation Rehab OP Wound Evaluation Start: 04/14/23 10:10 Freq: Status: Active Protocol: Document 04/14/23 12:45 PADDY (Rec: 04/14/23 12:59 PHORSONJA [id number]) E-signed By Gerhard Her, PT Subjective/History History History This is the initial PT eval for Claudia Jean, 57 yoaaf who presents with L foot wound following surgery performed 08/20 with poor wound healing. She reports significant pain and tenderness throughout the L ankle and foot continues. She presents in tall cam walker with dressing in place and maintaining NWB with WKS currently. She reports some anxiety about debridement of her wound. She has PMH of CAD, seizures, HLD, HTN, DM, sleep apnea, last A1c 6.7%. Subjective Subjective Pt reports pain 03/07 this date with 2/4 TTP in the candi- wound skin and L robles. 1+ pitting edema remains in the L foot. Wound Eval Wound Left Medial Dorsal Foot Wound Type Incision Is This a Chronic Wound Yes Wound Length (cm) 7.1 Wound Width (cm) 2.9 Wound Depth (cm) 0.2 Wound Bed Appearance Yellow Percentage of Slough (%) 100 Wound Margins Description Well Defined Surrounding Tissue Appearance Purple,Taut,Edematous Edema Type Pitting Edema Degree 1+ Query Text:1+ Trace, Barely Detectable, Rebound 15-30 seconds 2+ Moderate, Slight Indentation, Rebound 10-20 seconds 3+ Deep, Deeper Indentation, Rebound > 30 seconds 4+ Very Deep, Rebound > 60 seconds Drainage Description Serosanguineous Drainage Amount Moderate Primary Dressing Silver Dressing Comment [facility] Wound Secondary Dressing Type Absorbant Pad,Gauze Roll/Wrap, Adhering Gauze Roll Wound Debridement Method Gauze Wound Debridement Amount of Tissue Minimal Removed Dressing Change Patient Tolerance Tolerated Well Wound Problems/Impairments Impairments Problems/Impairmments Palpation Tenderness,Impaired Range of Motion,Impaired Strength,Impaired Endurance, Impaired Transfers,Impaired Gait Pattern,Impaired Walking, Impaired Standing,Impaired Shower/Bathing,Impaired Household Care,Impaired Stair Climbing,Impaired Incline Stepping,Impaired Stepping on Uneven Surface,Impaired Recreational Activities, Increased Edema,Lymphedema Present,Wound Care Needs, Subjective C/O Pain,Impaired Self Care/Self Management Prognosis Rehab Potential Good Clinical Impression Consistent with Diagnosis Yes Short Term Goals Number of Weeks 4 Decreased Palpation Tenderness Yes: 1/4 L foot and robles Decrease Edema Yes: no pitting edema Decrease Wound Area Yes: by 25% Decrease Subjective C/O Pain Yes: 6/10 L foot Intermediate Goals Number of Weeks 6-8 Decreased Palpation Tenderness Yes: 0/4 L foot and robles Improve Ability For Household Care Yes: without pain Decrease Lymphedema Yes Decrease Wound Area Yes: by 75% Increase Red Granulation Tissue % Yes: to 100% Decrease Subjective C/O Pain Yes: 3/10 L foot and robles Patient to be Ind w/ Advanced HEP Yes Patient to be Ind w/ Home Wound Care/ Yes Dressing Changes Outpatient Therapy Plan of Care Treatment Plan May Include Therapeutic Exercise Including Home Yes Exercise Program Manual Therapy Techniques Yes Neuromuscular Re-education Yes Therapeutic Activities to Return to Yes Previous Functional/Work Level ADL/Self Care Education Yes Orthotics/Bracing/Splinting Yes Manual Lymphatic Drainage Yes Wound Care Yes Eval/Re-Eval Yes Frequency Times per week 1 Duration Number of Weeks 6-8 Addendums This patient is a candidate for social No or vocational rehab? Patient/Guardian verbally acknowledges Yes understanding of treatment program and consents to further treatment? Patient/Guardian verbally acknowledges Yes understanding of diagnosis, prognosis and goals for treatment? G -code Required No Eval Complexity PT Charges 83898 - High Complexity PHYSICIAN CERTIFICATION: I certify the specified therapy services for Claudia Jean are required, authorized, and reviewed every 30 days.
--- NOTE | 2023-05-16 12:04 | HMH.RHREAS ---
Rehab Reassessment Rehab OP Re-assessment Start: 04/14/23 10:10 Freq: Status: Active Protocol: Document 05/16/23 12:00 PADDY (Rec: 05/16/23 12:04 PHORSONJA [id number]) E-signed By Gerhard Her, PT Rehab Re-assessment Subjective Subjective Pt reports no increased pain or tenderness in the L foot this date. Less edema overall. Objective Objective Notes Pain 4/10 currently. L Medial Foot wound: L= 5.5 cm , W= 2.7 cm, D= 0.3 cm. Wound total surface area is decreased by 27% vs intial eval. Edema: No pitting edema noted this date. Mild fibrotic edema in the L foot remains. TTP: 1/4 L foot in the candi- wound skin. Assessment Progress Assessment Progressing as Expected Assessment Notes Pt has shown significant improvement overall with wound healing and total wound surface area reduction. She continues to have exposed surgical hardware in the wound bed. She continues to need skilled intervention to return to prior level of function. Patient goals met ST,2,3,4 Goals Not Met LT,2,3,4,5,6,7,8 Revised Goals none Plan Plan Continue per initial POC. Frequency of Therapy 3 x/wk Duration of therapy 4 wks Time and Billing Re-Eval Time 14 Re-Eval Billing Units 1 PHYSICIAN CERTIFICATION: I certify the specified therapy services for Claudia Jean are required, authorized, and reviewed every 30 days.
--- NOTE | 2023-06-23 14:08 | HMH.RHREAS ---
Rehab Reassessment Rehab OP Re-assessment Start: 04/14/23 10:10 Freq: Status: Active Protocol: Document 06/23/23 14:05 PADDY (Rec: 06/23/23 14:08 PHOELLEN [id number]) E-signed By Gerhard Her, PT Rehab Re-assessment Subjective Subjective Pt reports She continues to feel sensitive to the touch throughout the dorsal L foot and candi-wound skin. Objective Objective Notes L Medial Foot wound: L= 4.0 cm , W= 1.8 cm, D= 0.1 cm. Wound total surface area is decreased by 65% vs intial eval. Edema: No pitting edema noted this date. Mild fibrotic edema in the L foot remains. TTP: 1/4 L foot in the candi- wound skin. Assessment Progress Assessment Progressing as Expected Assessment Notes Pt continues to show steady healing and overall decrease in wound size. She continues to need skilled intervention to reach state of full healing and return to prior level of function. Patient goals met ST,2,3,4 Goals Not Met LT,2,3,4,5,6,7,8 Revised Goals none Plan Plan Continue per initial POC. Frequency of Therapy 2-3 x/wk Duration of therapy 4 wks Time and Billing Re-Eval Time 15 Re-Eval Billing Units 1 PHYSICIAN CERTIFICATION: I certify the specified therapy services for Claudia Jean are required, authorized, and reviewed every 30 days.
== END 2023-07-29 09:00 | disposition home or self-care (01) ==
LOC: PT 08:00
PROVIDERS: PCP Nurse Practitioner Family; Visit Provider Podiatrist
DX: Z98.890 Other specified postprocedural states (principal); S91.302A Unspecified open wound, left foot, initial encounter
CPT/HCPCS: 97140; 97163; 97164; 97597; 97598; 97605

== ENCOUNTER → 2023-08-03 06:46 | Outpatient (CLI) | payer BC, SELFPAY ==
--- NOTE | 2023-08-03 06:50 | CT_ITS ---
FINAL REPORT TECHNIQUE: Thin section axial CT images with coronal and sagittal reformats were performed of the left foot. This study was performed with techniques to keep radiation doses as low as reasonably achievable (ALARA). Individualized dose reduction techniques using automated exposure control or adjustment of mA and/or kV according to the patient''s size were employed. CLINICAL HISTORY: Left foot, evaluate for nonunion of bone after Osteotomy COMPARISON: None FINDINGS: There is distal calcaneal osteotomy with staple present. There is a lack of bony fusion of this osteotomy. There is fusion of the first, second, and third tarsometatarsal joints with screw plates and multiple screws. There is no acute fracture. There are no masses or fluid collections. There are multiple small soft tissue calcifications adjacent to the medial midfoot. IMPRESSION: Distal calcaneal osteotomy with lack of bony fusion. Postoperative changes first, second, and third tarsometatarsal joints. Multiple small soft tissue calcifications. Reviewed, Interpreted and Dictated by Arjun Aggarwal III, MD Transcribed by Greta Ruiz Authenticated and . [facility]
== END ==
PROVIDERS: PCP Nurse Practitioner Family; Visit Provider Podiatrist
DX: G89.18 Other acute postprocedural pain (principal); M96.89 Other intraoperative and postprocedural complications and disorders of the musculoskeletal system; T81.31XA Disruption of external operation (surgical) wound, not elsewhere classified, initial encounter
CPT/HCPCS: 73700

== ENCOUNTER 2023-09-21 07:52 | Outpatient (CLI) | payer BC, SELFPAY ==
--- NOTE | 2023-09-21 07:57 | XR_ITS ---
FINAL REPORT CLINICAL HISTORY: Left foot post-op. 6 weeks ago COMPARISON: 07/19/2023 FINDINGS: LEFT FOOT Four views of the left foot demonstrate sideplate and screws securing the 1st, 2nd, and 3rd tarsometatarsal joints. There has an orthopedic staple securing osteotomy of the anterior lateral calcaneus. Hardware is intact. There is no acute fracture. The visualized joint spaces are normally aligned. The soft tissues are unremarkable. IMPRESSION: Postoperative changes without acute bony abnormality. Reviewed, Interpreted and Dictated by Blas Morocho MD Transcribed by Greta Ruiz Authenticated and . [facility]
== END 2023-09-21 23:59 ==
LOC: RAD 07:53
PROVIDERS: PCP Nurse Practitioner Family; Visit Provider Podiatrist
DX: M96.89 Other intraoperative and postprocedural complications and disorders of the musculoskeletal system (principal); T81.31XS Disruption of external operation (surgical) wound, not elsewhere classified, sequela
CPT/HCPCS: 73630

== ENCOUNTER 2023-10-18 09:03 | Outpatient (CLI) | payer BC, SELFPAY ==
--- NOTE | 2023-10-18 09:09 | XR_ITS ---
FINAL REPORT CLINICAL HISTORY: Left foot post op COMPARISON: 09/21/2023 FINDINGS: LEFT FOOT Three views of the left foot demonstrate sideplates and screws securing the first, second, and third tarsometatarsal joints. An orthopedic staple secures osteotomy of the anterior calcaneus. Hardware appears intact. No acute fracture or dislocation. The visualized joint spaces are normally aligned. The soft tissues are unremarkable. IMPRESSION: Postoperative changes without acute bony abnormality. Reviewed, Interpreted and Dictated by Blas Morocho MD Transcribed by Greta Ruiz Authenticated and [facility]
== END 2023-10-18 23:59 ==
LOC: RAD 09:04
PROVIDERS: PCP Nurse Practitioner Family; Visit Provider Podiatrist
DX: M79.672 Pain in left foot (principal); T81.31XA Disruption of external operation (surgical) wound, not elsewhere classified, initial encounter
CPT/HCPCS: 73630

== ENCOUNTER 2023-11-10 08:43 | Outpatient (CLI) | payer BC, SELFPAY ==
--- NOTE | 2023-11-10 08:48 | XR_ITS ---
FINAL REPORT CLINICAL HISTORY: Lt Knee Pain COMPARISON: None FINDINGS: Three views of the left knee reveal no evidence of fracture or dislocation. The bony alignment is normal. Mild degenerative change is present. There is no evidence of joint effusion. No localized soft tissue abnormality is seen. IMPRESSION: No acute abnormality identified, with mild degenerative change. Reviewed, Interpreted and Dictated by Arjun Aggarwal III, MD Transcribed by Leda Ortiz Authenticated and [facility]
--- NOTE | 2023-11-10 08:48 | XR_ITS ---
FINAL REPORT CLINICAL HISTORY: Rt Knee Pain COMPARISON: None FINDINGS: Three views of the right knee reveal no evidence of fracture or dislocation. The bony alignment is normal. Mild degenerative change is present. There is no evidence of joint effusion. No localized soft tissue abnormality is identified. IMPRESSION: No acute abnormality identified, with mild degenerative change. Reviewed, Interpreted and Dictated by Arjun Aggarwal III, MD Transcribed by Leda Ortiz Authenticated and . [facility]
== END 2023-11-10 23:59 ==
LOC: RAD 08:43
PROVIDERS: PCP Nurse Practitioner Family; Visit Provider Orthopaedic Surgery
DX: M25.561 Pain in right knee (principal); M25.562 Pain in left knee
CPT/HCPCS: 73562

== ENCOUNTER 2023-11-16 08:58 | Outpatient (CLI) | payer BC, SELFPAY ==
--- NOTE | 2023-11-16 09:03 | XR_ITS ---
FINAL REPORT CLINICAL HISTORY: Left foot pain COMPARISON: 10/18/2023 FINDINGS: RIGHT FOOT: Three views of the right foot were obtained. There are postoperative changes in the calcaneus and midfoot. Hardware is stable. Bony alignment is stable. There is no acute fracture or dislocation. Pes planus deformity is noted. There is a plantar calcaneal spur. The joint spaces are intact. There is no soft tissue abnormality. IMPRESSION: Postoperative changes with intact hardware. No acute bony abnormality. Reviewed, Interpreted and Dictated by Arjun Aggarwal III, MD Transcribed by Greta Ruiz Authenticated and [facility]
== END 2023-11-16 23:59 ==
LOC: RAD 08:58
PROVIDERS: PCP Nurse Practitioner Family; Visit Provider Podiatrist
DX: M79.672 Pain in left foot (principal)
CPT/HCPCS: 73630

== ENCOUNTER 2023-11-17 11:05 | Outpatient (CLI) | payer BC, SELFPAY ==
[2023-11-17 11:34] LABS: Basophils # 0.1 K/mm3 (0-0.2); Basophils % 1.6 % (0.1-2.0); Eosinophils # 0.1 K/mm3 (0.0-0.4); Eosinophils % 1.6 % (0.1-12.0); Hemoglobin 12.6 g/dL (12.2-16.2); Lymphocytes # 2.8 K/mm3 (0.7-4.5); Lymphocytes % 50.5 % (10-50); Mean Corpuscular HGB Conc 31.4 g/dL (31.8-35.4); Mean Corpuscular Hemoglobin 25.3 pg (27.0-31.2); Mean Corpuscular Volume 80.5 fl (81-99); Mean Platelet Volume 8.4 fl (7.4-10.4); Monocytes # 0.2 K/mm3 (0.1-1.0); Monocytes % 3.4 % (1.7-9.3); Neutrophils # 2.4 K/mm3 (1.8-7.8); Neutrophils % 42.9 % (37.0-80.0); Platelet Count 297 K/mm3 (142-424); Red Blood Count 4.97 M/mm3 (4.20-5.40); Red Cell Distribution Width 19.3 % (11.5-17.5); White Blood Count 5.5 K/mm3 (4.8-10.8)
[2023-11-17 11:38] LABS: MANUAL DIFFERENTIAL MANUAL DIFFERENTIAL (MANUAL DIFF)
[2023-11-17 12:21] LABS: Albumin Level 4.4 g/dl (3.5-5.0); Albumin/Globulin Ratio 1.4 (1.1-1.8); Alkaline Phosphatase 131 U/L (38-126); Anion Gap 7.7 mEq/L (5-15); Calcium 9.7 mg/dl (8.4-10.2); Carbon Dioxide 34 mmol/L (22.0-30.0); Chloride 101 mmol/L (98-107); Globulin 3.2 g/dL (1.3-3.2); Glucose 127 mg/dl (74-100); Potassium 3.7 mmoL/L (3.5-5.1); Sodium 139 mmol/L (136-145); Total Protein,Serum 7.6 g/dl (6.3-8.2); Uric Acid 7.7 mg/dl (2.5-6.2)
[2023-11-17 12:23] LABS: Alanine Aminotransferase 26 U/L (12-78); Aspartate Amino Transferase 33 U/L (14-36)
[2023-11-17 12:26] LABS: C-Reactive Protein 8.2 mg/L (0-4)
[2023-11-17 12:52] LABS: Thyroid Stimulating Hormone 0.06 uIU/mL (0.465-4.68)
[2023-11-17 13:07] LABS: Erythrocyte Sedimentation Rate 19 mm/hr (0-30)
[2023-11-17 14:36] LABS: Blood Urea Nitrogen 24 mg/dl (7-17); Estimated Glomerular Filt Rate 64 ml/min (>60); GFR (African American) 78 ML/MIN (>60)
[2023-11-17 14:43] LABS: Eosinophils % 1 % (0-3); Lymphocytes % 59 % (10-50); Monocytes % 1 % (2-9); Neutrophils % 38 % (42-76); Total Cells Counted 100
[2023-11-17 14:46] LABS: Anisocytosis 1+; Microcytosis 1+; Platelet Estimate Normal; Poikilocytosis 1+
[2023-11-17 16:32] LABS: Folate > 20.00 ng/mL; Vitamin B12 > 1000 pg/mL (239-931)
[2023-11-18 14:59] LABS: RA Latex Turbid. <10.0 IU/mL (<14.0)
[2023-11-18 15:37] LABS: Free T4 (Free Thyroxine) 1.09 ng/dl (0.78-2.19)
[2023-11-19 12:47] LABS: Antinuclear Antibodies, IFA Positive
[2023-11-26 15:48] LABS: 1,25 Dihydroxy Vitamin D 35 pg/mL (.); 1,25-Dihydroxy, Vitamin D-2 <10 pg/mL (.); 1,25-Dihydroxy, Vitamin D-3 34 pg/mL (.)
== END 2023-11-17 23:59 ==
LOC: LAB 11:06
PROVIDERS: PCP Nurse Practitioner Family; Visit Provider Podiatrist
DX: E11.42 Type 2 diabetes mellitus with diabetic polyneuropathy (principal); E11.40 Type 2 diabetes mellitus with diabetic neuropathy, unspecified; R60.0 Localized edema; R79.89 Other specified abnormal findings of blood chemistry; Z79.4 Long term (current) use of insulin; E66.9 Obesity, unspecified; Z68.37 Body mass index [BMI] 37.0-37.9, adult; Z79.899 Other long term (current) drug therapy
CPT/HCPCS: 36415; 80053; 82607; 82652; 82746; 83036; 84439; 84443; 84550; 85007; 85025; 85651; 86038; 86140; 86431

== ENCOUNTER 2023-11-18 15:00 | Outpatient (RCR) | payer BC, SELFPAY ==
--- NOTE | 2023-09-16 14:42 | HMH.PTOPEV ---
PT Outpatient Evaluation Rehab PT Outpatient Evaluation Start: 09/16/23 14:29 Freq: Status: Active Protocol: Document 09/16/23 14:29 PADDY (Rec: 09/16/23 14:42 PHOELLEN [id number]) E-signed By Gerhard Her, PT Outpatient Therapy Subjective History Subjective History This is the initial PT eval for Claudia Jean, 57 yoaaf who presents with L foot/amkle weakness and stiffness after foot surgery performed ~ 7 mos ago. Her treatment was complicated by poor wound and bone healing resulting in prolonged cam walker stabilization. She also had significant post-op neurogenic pain. She has much less pain now, but remains very weak. She presents to the clinic FWB 'ing in cam walker. New diagnosis of cancer in past 12 No months? Chief Complaint Pain,Stiff Symptom Type Ache Symptoms Relieved By Rest/Positioning Symptoms Aggravated By Walking Prior Functional Limitations None Current Functional Limitations Standing,Recreation Activity, Walking,Stairs,Bending/ Stooping Symptom Description Intermittent,Activity Dependent Level of pain today (0-10) 0 Pain scale - at its worst (0-10) 3 Ankle/Foot Eval Gait Observation General Gait Pattern Observation Wide Based Gait,Decrease Stride Lngth (L) Palpation Tenderness left Ankle/Foot Palpation Findings Tenderness Ankle/Foot Palpation Overall Comment 2/4 candi-incisional. ROM Ankle/Foot Dorsiflexion w/Knee Extended 0-2 Active Range Motion (degrees) Ankle/Foot Plantar Flexion Active Range 0-27 of Motion (degrees) Ankle/Foot Eversion Active Range of 0-4 Motion (degrees) Ankle/Foot Inversion Active Range of 0-12 Motion (degrees) MMT Ankle Dorsiflexion Strength Grade 2+ Poor+ Ankle Plantarflexion Strength Grade 3 Fair Foot Eversion Strength Grade 2 Poor Foot Inversion Strength Grade 2 Poor Lower Extremity Functional Index Activities Today, do you or would you have any difficulty at all with: a.Any of your usual work, housework or Quite a bit of difficulty school activities b. Your usual hobbies, recreational or Extreme difficulty or unable sporting activities to perform activity c. Getting into or out of the bath Quite a bit of difficulty d. Walking between rooms Moderate difficulty e. Putting on your shoes or socks Quite a bit of difficulty f. Squatting Extreme difficulty or unable to perform activity g. Lifting an object, like a bag of Quite a bit of difficulty groceries from the floor h. Performing light activities around Moderate difficulty your home i. Performing heavy activities around Extreme difficulty or unable your home to perform activity j. Getting into or out of a car Quite a bit of difficulty k. Walking 2 blocks Extreme difficulty or unable to perform activity l. Walking a mile Extreme difficulty or unable to perform activity m. Going up or down 10 stairs (about 1 Quite a bit of difficulty flight of stairs) n. Standing for 1 hour Extreme difficulty or unable to perform activity o. Sitting for 1 hour Moderate difficulty p. Running on even ground Extreme difficulty or unable to perform activity q. Running on uneven ground Extreme difficulty or unable to perform activity r. Making sharp turns while running fast Extreme difficulty or unable to perform activity s. Hopping Extreme difficulty or unable to perform activity t. Rolling over in bed Moderate difficulty LEFI Score Lower Extremity Functional Index Score 14 Outpatient Therapy Assessment Impairments Problems/Impairmments Palpation Tenderness,Impaired Range of Motion,Impaired Strength,Impaired Endurance, Impaired Transfers,Impaired Gait Pattern,Impaired Walking, Impaired Standing,Impaired Sitting,Impaired Dressing, Impaired Shower/Bathing, Impaired Household Care, Impaired Stair Climbing, Impaired Incline Stepping, Impaired Stepping on Uneven Surface,Impaired Squatting, Impaired Recreational Activities,Impaired Balance, Increased Edema,Subjective C/O Pain,Impaired Self Care/Self Management Prognosis Rehab Potential Good Clinical Impression Consistent with Diagnosis Yes Short Term Goals Number of Weeks 2 Decreased Palpation Tenderness Yes: 1/4 L foot Increase Range of Motion Yes: L ankle by 5 deg all dir Increase Strength Yes: L ankle 3/5 throughout Improve Gait Pattern with Assistive Yes Device Improve LEFI Score Yes: >25 Decrease Subjective C/O Pain Yes: 10 at worst Patient to be Ind w/ HEP Yes Rn Clinical Documentation Goals Number of Weeks 4 Decreased Palpation Tenderness Yes: 0/4 L foot Increase Range of Motion Yes: L ankle by 10 deg all dir Increase Strength Yes: L ankle 5/5 throughout Improve Gait Pattern without Assistive Yes Device Improve Ability to Squat Yes Return to Recreational Activities Yes Improve LEFI Score Yes: >40 Decrease Subjective C/O Pain Yes: 110 at worst Patient to be Ind w/ Advanced HEP Yes Outpatient Therapy Plan of Care Treatment Plan May Include Therapeutic Exercise Including Home Yes Exercise Program Manual Therapy Techniques Yes Neuromuscular Re-education Yes Therapeutic Activities to Return to Yes Previous Functional/Work Level Gait Training Yes ADL/Self Care Education Yes Thermal Modalities Yes Electrical Stimulation Yes Ultrasound/Phonophoresis Yes Orthotics/Bracing/Splinting Yes Vasopneumatic Compression Pump Yes Massage Yes Manual Lymphatic Drainage Yes Eval/Re-Eval Yes Frequency Times per week 2 Duration Number of Weeks 4 Addendums This patient is a candidate for social No or vocational rehab? Patient/Guardian verbally acknowledges Yes understanding of treatment program and consents to further treatment? Patient/Guardian verbally acknowledges Yes understanding of diagnosis, prognosis and goals for treatment? Eval Complexity PT Charges 43428 - High Complexity Shoulder/Elbow Eval Shoulder Objective Measurements Elbow Objective Measurements PHYSICIAN CERTIFICATION: I certify the specified therapy services for Claudia Jean are required, authorized, and reviewed every 30 days.
--- NOTE | 2023-10-18 09:56 | HMH.RHREAS ---
Rehab Reassessment Rehab OP Re-assessment Start: 09/16/23 14:29 Freq: Status: Active Protocol: Document 10/18/23 09:51 PHORSONJA (Rec: 10/18/23 09:56 PHORNE [id number]) E-signed By Gerhard Her, PT Lower Extremity Functional Index Activities Today, do you or would you have any difficulty at all with: a.Any of your usual work, housework or Quite a bit of difficulty school activities b. Your usual hobbies, recreational or Extreme difficulty or unable sporting activities to perform activity c. Getting into or out of the bath Quite a bit of difficulty d. Walking between rooms Quite a bit of difficulty e. Putting on your shoes or socks Extreme difficulty or unable to perform activity f. Squatting Extreme difficulty or unable to perform activity g. Lifting an object, like a bag of Quite a bit of difficulty groceries from the floor h. Performing light activities around Quite a bit of difficulty your home i. Performing heavy activities around Extreme difficulty or unable your home to perform activity j. Getting into or out of a car Quite a bit of difficulty k. Walking 2 blocks Extreme difficulty or unable to perform activity l. Walking a mile Extreme difficulty or unable to perform activity m. Going up or down 10 stairs (about 1 Quite a bit of difficulty flight of stairs) n. Standing for 1 hour Extreme difficulty or unable to perform activity o. Sitting for 1 hour Quite a bit of difficulty p. Running on even ground Extreme difficulty or unable to perform activity q. Running on uneven ground Extreme difficulty or unable to perform activity r. Making sharp turns while running fast Extreme difficulty or unable to perform activity s. Hopping Extreme difficulty or unable to perform activity t. Rolling over in bed Quite a bit of difficulty LEFI Score Lower Extremity Functional Index Score 9 Rehab Re-assessment Subjective Subjective Pt reports she continues to deal with significant swelling , but she feels her balance and activity are improving. LEFS score does not appear to reflect actually improvements in function noted during treatment. Objective Objective Notes L ankle AROM: DF= 0-8, PF= 0- 35, EVER= 0-8, INV= 0-17. MMT L ankle: DF 3+/5, PF 3+/5, INV 3+/5, EVER 3/5. Pain 2/10 at worst in L foot dorsally. Assessment Progress Assessment Progressing as Expected Assessment Notes Gait is much more normalized, but mobility and overall strength remain decreased. Edema remains a significant issue with retun of full function. She continues to need skilled intervention to return to prior level of function. Patient goals met ST,2,3,4,6,[address] LT,2,3,4,5,6,7,8 ,9 Plan Plan Cotninue per initial POC. Increased L LE strength to improve functional mobility. Frequency of Therapy 2-3 x/wk Duration of therapy 4 wks Time and Billing Re-Eval Time 13 Re-Eval Billing Units 1 PHYSICIAN CERTIFICATION: I certify the specified therapy services for Claudia Jean are required, authorized, and reviewed every 30 days.
== END 2023-11-18 16:30 | disposition home or self-care (01) ==
LOC: PT 15:00
PROVIDERS: PCP Nurse Practitioner Family; Visit Provider Podiatrist
DX: M96.89 Other intraoperative and postprocedural complications and disorders of the musculoskeletal system (principal); G89.18 Other acute postprocedural pain; M79.672 Pain in left foot
CPT/HCPCS: 97110; 97112; 97116; 97140; 97163; 97164

== ENCOUNTER 2023-12-22 11:16 | Outpatient (CLI) | payer BC, SELFPAY ==
--- NOTE | 2023-12-22 11:21 | XR_ITS ---
FINAL REPORT CLINICAL HISTORY: Foot Pain surgery february alot of pain COMPARISON: None FINDINGS: LEFT FOOT Three views of the left foot demonstrate no acute fracture or dislocation. There is plate and screw securing the first, second and third tarsometatarsal joints. There is a stable securing an anterior calcaneal osteotomy. There is a small plantar spur present. IMPRESSION: Postoperative changes as above. Reviewed, Interpreted and Dictated by Blas Morocho MD Transcribed by TIFFANY Ge Authenticated and [facility]
== END 2023-12-22 23:59 | disposition home or self-care (01) ==
LOC: RAD 11:17
PROVIDERS: PCP Nurse Practitioner Family; Visit Provider Podiatrist
DX: M79.672 Pain in left foot (principal)
CPT/HCPCS: 73630

== ENCOUNTER 2024-01-09 08:18 | Outpatient (CLI) | payer BC, SELFPAY ==
--- NOTE | 2024-01-09 08:19 | CT_ITS ---
FINAL REPORT TECHNIQUE: Thin section axial CT images with coronal and sagittal reformats were performed. This study was performed with techniques to keep radiation doses as low as reasonably achievable (ALARA). Individualized dose reduction techniques using automated exposure control or adjustment of mA and/or kV according to the patient''s size were employed. CLINICAL HISTORY: Postoperative Evaluation left foot COMPARISON: 08/03/2023 FINDINGS: There is a distal calcaneal osteotomy with stable. There has been interval bony fusion at the osteotomy site. There are postoperative changes of the first, second, and third tarsometatarsal joints with multiple screw plates and screws. Bony fusion is seen at the first, second, and third tarsometatarsal joints. There is no new bony abnormality. Mild degenerative change is noted. Again noted are soft tissue calcifications at the anteromedial aspect of the midfoot. There is soft tissue swelling of the dorsum of the midfoot. IMPRESSION: Interval fusion of the distal calcaneal osteotomy. Other findings visually stable. Reviewed, Interpreted and Dictated by Arjun Aggarwal III, MD Transcribed by Greta Ruiz Authenticated and [facility]
== END 2024-01-09 23:59 | disposition home or self-care (01) ==
LOC: RAD 08:19
PROVIDERS: PCP Nurse Practitioner Family; Visit Provider Podiatrist
DX: M25.571 Pain in right ankle and joints of right foot (principal); M25.572 Pain in left ankle and joints of left foot; T81.31XD Disruption of external operation (surgical) wound, not elsewhere classified, subsequent encounter; G89.18 Other acute postprocedural pain; M96.89 Other intraoperative and postprocedural complications and disorders of the musculoskeletal system; E11.40 Type 2 diabetes mellitus with diabetic neuropathy, unspecified; Z79.4 Long term (current) use of insulin
CPT/HCPCS: 73700

== ENCOUNTER 2024-02-13 09:35 | Outpatient (CLI) | payer BC, SELFPAY ==
[2024-02-13 11:17] LABS: Free T4 (Free Thyroxine) 0.87 ng/dl (0.78-2.19)
[2024-02-13 12:21] LABS: Thyroid Stimulating Hormone 1.42 uIU/mL (0.465-4.68)
== END 2024-02-13 23:59 | disposition home or self-care (01) ==
LOC: LAB 09:36
PROVIDERS: PCP Nurse Practitioner Family; Visit Provider Nurse Practitioner Family
DX: R79.89 Other specified abnormal findings of blood chemistry (principal)
CPT/HCPCS: 36415; 84439; 84443

== ENCOUNTER 2024-03-08 07:49 | Outpatient (CLI) | payer BC, SELFPAY ==
--- NOTE | 2024-03-08 07:52 | MM_ITS ---
PROCEDURE INFORMATION: Exam: MG Bilateral Screening 3D Mammography Exam date and time: 03/08/2024 7:50 AM Age: 58 years old Clinical indication: Screening examination TECHNIQUE: Imaging protocol: Bilateral Screening tomosynthesis and 2D mammography including computer-aided detection (CAD) when performed. COMPARISON: 1. MG MM DIG SCREENING MAMM BI W/CAD 05/06/2023 8:04 AM 2. MG MM DIG MAMM BI DX W/CAD 11/03/2021 1:29 PM FINDINGS: MAMMOGRAPHY: Breast composition: There are scattered areas of fibroglandular density. Mass: None. Architectural distortion: None. Calcifications: No suspicious calcifications. Asymmetric density: None. Skin thickening: None. Axillary adenopathy: None. IMPRESSION: No mammographic evidence of malignancy. Annual screening is recommended unless otherwise clinically indicated. ASSESSMENT: BI-RADS Category 1: Negative
== END 2024-03-08 23:59 | disposition home or self-care (01) ==
LOC: RAD 07:49
PROVIDERS: PCP Nurse Practitioner Family; Visit Provider Nurse Practitioner Family
DX: Z12.31 Encounter for screening mammogram for malignant neoplasm of breast (principal)
CPT/HCPCS: 77063; 77067

== ENCOUNTER 2024-03-13 09:11 | Outpatient (CLI) | payer BC, SELFPAY ==
--- NOTE | 2024-03-13 09:17 | XR_ITS ---
FINAL REPORT CLINICAL HISTORY: Ankle Pain prior surgery last year COMPARISON: None FINDINGS: AP, oblique, and lateral views of the left ankle were obtained. There is no prior exam for comparison. There are postoperative changes of surgical fusions of the first second and third tarsometatarsal joints. There is lucency around the lateral screw in the navicular, age-indeterminate. There is soft tissue swelling in the midfoot and hindfoot. Multijoint degenerative changes present. There is no fracture or dislocation. The ankle mortise is intact. Soft tissues are normal. IMPRESSION: Postoperative changes as described above, with lucency around the lateral screw in the navicular, age-indeterminate. This may represent loosening. Mild multijoint degenerative change is present, with soft tissue swelling in the midfoot and hindfoot. Reviewed, Interpreted and Dictated by Tammi Francisco MD Transcribed by Leda Ortiz Authenticated and [facility]
--- NOTE | 2024-03-13 09:17 | XR_ITS ---
FINAL REPORT CLINICAL HISTORY: Foot Pain left swelling , prior surgery last year COMPARISON: None FINDINGS: AP, oblique and lateral views of the left foot were obtained. There is no prior exam for comparison. Postoperative changes of the surgical fusion with orthopedic plates and screws of the first, second, and third tarsometatarsal joints is present. There is lucency around the lateral screw in the navicular, age-indeterminate. Multijoint degenerative change is present as well. There is a large staple present in the calcaneus. There is soft tissue edema present in the hindfoot and midfoot. IMPRESSION: Postoperative changes in the tarsometatarsal joints and in the calcaneus as described above. There is a lucency around the lateral screw in the navicular, age-indeterminate. Loosening of this screw is not excluded. Reviewed, Interpreted and Dictated by Tammi Francisco MD Transcribed by Leda Ortiz Authenticated and . [facility]
== END 2024-03-13 23:59 | disposition home or self-care (01) ==
LOC: RAD 09:12
PROVIDERS: PCP Nurse Practitioner Family; Visit Provider Podiatrist
DX: M79.672 Pain in left foot (principal); M25.572 Pain in left ankle and joints of left foot
CPT/HCPCS: 73610; 73630

== ENCOUNTER 2024-03-30 14:16 | Outpatient (CLI) | payer BC, SELFPAY ==
--- NOTE | 2024-03-30 14:17 | CT_ITS ---
FINAL REPORT TECHNIQUE: Thin section axial CT images with coronal and sagittal reformats were performed. This study was performed with techniques to keep radiation doses as low as reasonably achievable (ALARA). Individualized dose reduction techniques using automated exposure control or adjustment of mA and/or kV according to the patient''s size were employed. CLINICAL HISTORY: findings of lucency around Navicular COMPARISON: None FINDINGS: There is a sideplate and screws securing the 1st, 2nd, and 3rd tarsometatarsal joints. There is a sideplate securing the tarsal navicular. The screw at the distal end of the plate goes into the joint space between the mid and middle cuneiform but not into bone. An orthopedic staple is seen at the lateral aspect of the distal calcaneus. 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 IMPRESSION: Fusion hardware bridging 1st, 2nd, and 3rd tarsometatarsal joints. Dorsal plate securing the tarsal navicular posteriorly but not clearly anchored into the bone anteriorly. Reviewed, Interpreted and Dictated by Blas Morocho MD Transcribed by Greta Ruiz Authenticated and [facility]
[2024-03-30 14:54] LABS: Basophils # 0.1 K/mm3 (0-0.2); Eosinophils # 0.2 K/mm3 (0.0-0.4); Eosinophils % 3.5 % (0.1-12.0); Hematocrit 38.4 % (37.0-47.0); Hemoglobin 11.8 g/dL (12.2-16.2); Lymphocytes # 2.9 K/mm3 (0.7-4.5); Lymphocytes % 48.9 % (10-50); Mean Corpuscular HGB Conc 30.8 g/dL (31.8-35.4); Mean Corpuscular Hemoglobin 25.2 pg (27.0-31.2); Mean Corpuscular Volume 81.8 fl (81-99); Mean Platelet Volume 8.2 fl (7.4-10.4); Monocytes # 0.3 K/mm3 (0.1-1.0); Monocytes % 5.1 % (1.7-9.3); Neutrophils # 2.5 K/mm3 (1.8-7.8); Neutrophils % 41.5 % (37.0-80.0); Platelet Count 294 K/mm3 (142-424); Red Blood Count 4.69 M/mm3 (4.20-5.40); Red Cell Distribution Width 18.7 % (11.5-17.5)
[2024-03-30 15:16] LABS: Albumin Level 4.3 g/dl (3.5-5.0); Chloride 105 mmol/L (98-107); Potassium 4.3 mmoL/L (3.5-5.1); Sodium 138 mmol/L (136-145)
[2024-03-30 15:19] LABS: Alanine Aminotransferase 15 U/L (12-78); Albumin/Globulin Ratio 1.4 (1.1-1.8); Alkaline Phosphatase 109 U/L (38-126); Anion Gap 7.3 mEq/L (5-15); Aspartate Amino Transferase 29 U/L (14-36); Bilirubin,Total 0.8 mg/dl (0.2-1.3); Blood Urea Nitrogen 18 mg/dl (7-17); Carbon Dioxide 30 mmol/L (22.0-30.0); Estimated Glomerular Filt Rate 64 ml/min (>60); GFR (African American) 78 ML/MIN (>60); Globulin 3.1 g/dL (1.3-3.2); Hemoglobin A1C 5.9 % (4.0-6.0); Total Protein,Serum 7.4 g/dl (6.3-8.2)
[2024-03-30 15:26] LABS: C-Reactive Protein 7.1 mg/L (0-4)
[2024-03-30 15:48] LABS: Erythrocyte Sedimentation Rate 17 mm/hr (0-30)
[2024-03-30 16:01] LABS: Calcium 9.7 mg/dl (8.4-10.2); Glucose 67 mg/dl (74-100); Uric Acid 5.2 mg/dl (2.5-6.2)
== END 2024-03-30 23:59 | disposition home or self-care (01) ==
LOC: RAD 14:17
PROVIDERS: PCP Nurse Practitioner Family; Visit Provider Podiatrist
DX: M79.672 Pain in left foot (principal); G89.18 Other acute postprocedural pain; R60.9 Edema, unspecified; M96.89 Other intraoperative and postprocedural complications and disorders of the musculoskeletal system; E11.40 Type 2 diabetes mellitus with diabetic neuropathy, unspecified; Z79.4 Long term (current) use of insulin; Z79.85 Long-term (current) use of injectable non-insulin antidiabetic drugs
CPT/HCPCS: 36415; 73700; 80053; 83036; 84550; 85025; 85651; 86140

== ENCOUNTER 2024-04-09 10:08 | Outpatient (CLI) | payer BC, SELFPAY ==
--- NOTE | 2024-04-09 10:20 | ECG_ITS ---
APPROVED REPORT Exam: Resting ECG HR:73 bpm ECG Measurements Heart Rate 73 AXES WY 208 P 10 QRSd 91 QRS -20 QT 414 T 31 QTc 439 Conclusion SINUS RHYTHM POSSIBLE RIGHT VENTRICULAR CONDUCTION DELAY [RSR (QR) IN V1/V2] MINIMAL VOLTAGE CRITERIA FOR LVH, CONSIDER NORMAL VARIANT [MEETS CRITERIA IN ONE OF: R(aVL), S(V1), R(V5), R(V5/V6)+S(V1)] SEPTAL MYOCARDIAL INFARCTION , OF INDETERMINATE AGE [40+ ms Q WAVE IN V1/V2] ABNORMAL ECG UNCONFIRMED REPORT Electronically signed by : Luis Weber MD 04/11/2024 08:08:42
== END 2024-04-09 23:59 | disposition home or self-care (01) ==
LOC: RT 10:09
PROVIDERS: PCP Nurse Practitioner Family; Visit Provider Podiatrist
DX: Z01.818 Encounter for other preprocedural examination (principal)
CPT/HCPCS: 93005

== ENCOUNTER 2024-04-19 10:51 | Day surgery (SDC) | payer BC, SELFPAY ==
[2024-04-19] VITALS (10 sets, daily range): BP systolic 149–195; BP diastolic 80–102; PULSE 80–89; RESP 14–20; TEMP 36.1–43; O2SAT 92–98; BMI 38.7
--- NOTE | 2024-04-19 | XR_ITS ---
FINAL REPORT CLINICAL HISTORY: left foot in OR 1.2 time 1.53 mGy FINDINGS: FLUOROSCOPY LESS THAN 1 HOUR HISTORY: Fluoroscopy guidance. FINDINGS: Fluoroscopic guidance was provided for left foot in the OR. Three spot films were obtained. A total of 1.2 minutes of fluoroscopy time were used. DAP: 1.53 mGy IMPRESSION: As above. Reviewed, Interpreted and Dictated by Blas Morocho MD Transcribed by Greta Ruiz Authenticated and [facility]
[2024-04-19] MEDS: LACTATED RINGERS 1000ML 1,000 ML 25 ML IV (11:16)
[2024-04-19] MEDS: LEVOFLOXACIN/D5W 500 MG/100 ML PIGGYBACK 100 MG IV (13:00)
[2024-04-19] MEDS: VANCOMYCIN/WATER FOR INJ (PEG) 1.75 GM/350 ML PIGGYBACK IV (13:00)
--- NOTE | 2024-04-19 13:25 | P.PNANES_ITS ---
[facility] Disclaimer: The information contained in this section may have been updated after the patient was seen, as this information can be updated by other users. Medical History Uncontrolled diabetes mellitus Dyspnea HLD (hyperlipidemia) HTN (hypertension) Coronary artery disease Encounter for pre-operative cardiovascular clearance Abnormal result of cardiovascular function study History of seizures Sleep apnea Severe obesity (BMI 35.0-39.9) with comorbidity Surgical History History of right heart catheterization (RHC) History of back surgery Hx of hysterectomy Family History Other Family history of diabetes mellitus type II Family history of hypertension Social History (Updated 04/19/24 @ 11:15 by Will White RN) Smoking Status: Never smoker alcohol intake: never substance use type: denies use current occupational status: employed Travel in the last 8 weeks: Inside the [place] household members: spouse housing: house current occupational exposures/hazards: Yes caffeine: No [facility] Anesthesia Checklist Patient Identification Patient Identification: Verbal (Name & ) Structural Data Admitted From: Home Planned Operative Procedure/s: hardware removal l foot Consent for Planned Operative Procedure(s) Verified: Yes NPO Status Verified Time NPO: 00:00 Additional verifications Anesthesia Reactions: Yes (PT REPORTS HARD TO WAKE UP AFTER LAST PROCEDURE) Hx Blood Transfusions: No Blood Transfusion Reaction: No Airway Assessment Mallampati Score:: Class II C-Spine Mobility Assessed: Yes TMJ Mobility Assessed: Yes Dentition: Good Dentition Neurological Assessment Level of Consciousness: Awake, Alert and Appropriate Anesthesia Plan Anesthesia Risk discussed: Yes Anesthesia Plan: Verified ASA Class: II Anesthesia Type: General w/block
[2024-04-19] MEDS: GENTAMICIN 80 MG/2 ML VIAL ×2 (14:08)
--- NOTE | 2024-04-19 15:00 | XR_ITS ---
FINAL REPORT CLINICAL HISTORY: Post op hardware removal COMPARISON: 03/13/2024 FINDINGS: LEFT FOOT Three views of the left foot were obtained. There is redemonstration of fusion hardware bridging the medial intertarsal joints, the first, second, and third tarsometatarsal joints, and the anterior calcaneus. The hardware is stable. There is new heterotopic bone formation along the medial aspect of the first tarsometatarsal joint. No acute fracture or dislocation. The visualized joint spaces are normally aligned. The soft tissues are unremarkable. IMPRESSION: Stable hardware as described. New heterotopic bone formation medial aspect of the first tarsometatarsal joint. Reviewed, Interpreted and Dictated by Blas Morocho MD Transcribed by Greta Ruiz Authenticated and [facility]
--- NOTE | 2024-04-19 15:35 | EXP.ANES.I ---
[facility] Anesthesia Record Part I Anesthesia Record I Intake, IV Amount: 2,000 Hydration: Adequate Estimated blood loss (mL): 0 Urine output (mL): 0 Blood Pressure: 180/95 SaO2: 94 Pulse Rate: 82 Airway Patency: Patent Respiratory Rate: 14 Temperature: 98.5 F Patient is:: Awake and Stable Stable to PACU at:: 15:30
--- NOTE | 2024-04-19 16:11 | EXP.OP.NOTE ---
Date of procedure: 04/19/24 Pre-op Diagnosis:: Left painful hardware Left navicular fracture Left navicular (cuneiform arthrodesis) non-union Left hallux cock up toe deformity Post-op Diagnosis:: Same Procedure performed:: Open reduction internal fixation navicular fracture and repair nonunion (navicular) with allograft gastrocnemius recession neurectomy foot left foot hardware removal open bone biopsy left EHL tendon lengthening Surgeon:: Maureen Reyna DPM TOOLROOM MACHINIST:: Dada Pichardo Anesthesia: GETA and regional (pop, add canal block) Estimated blood loss (mL): 20 Clinical Note:: 58-year-old diabetic female who presents for left medial midfoot pain. Patient underwent surgery initially 03/09/2023, s/p Left Multiple midtarsal joint AD (flatfoot correction), Shields calcaneal osteotomy, NC fusion, Lapidus bunionectomy, Posterior tibial tenosynovectomy, Autograft bone harvest. She subsequently developed a postoperative wound dehiscence and diabetic foot ulcer which was managed with local wound care, wound debridement, oral antibiotics and once infection cleared grafting. Discussed left medial midfoot pain. Recent x-rays, CT and labs obtained. No obvious signs of active infection/osteomyelitis. Given her history it is a consideration. Does have some hardware loosening at the navicular bone. Discussed conservative versus surgical treatment options. Conservative treatment has failed including: Surgery, modification of shoe gear, modification of activity, NSAIDs, Tylenol, formal physical therapy and patient continues to have pain. Discussed gastroc vs ROSALIA previously last year but was able to get to neutral with ankle ROM so did not do it. Discussed sx for gastroc equinus. Also discussed options for medial foot pain: monitor, continue bone stim, steroid injections, continue DM shoes/inserts vs surgery for HWR, possible bone graft. Discussed CT shows no evidence of non-union at calcaneus osteotomy site or at the tarsometatarsal/navicular cuneiform fusion sites. However due to hardware/screw loosening, if screw is removed and bone is not healed or fractured, would plan to use bone graft and fixate (ORIF or repair non-union). Discussed her increased risk of wound dehiscence, diabetic foot ulcers and infections due to her medical history and postop complications last year. Will aim for minimally invasive approach for hardware removal to minimize incision length. All risks and benefits were discussed including but not limited to: damage to blood vessels and nerves, bleeding, infection, wound complications, delayed, mal or non-union of bone, post-traumatic arthritis, need for further surgery, implant failure, need for removal of implant, prolonged or permanent swelling of the extremity, prolonged or permanent pain or deformity, CRPS/RSD, DVT/PE, and anesthetic complications including . No guarantees were given. All questions fully answered. The patient verbalized understanding and agreed to proceed with surgery. Consent was obtained. Medical clearance granted by Natalie Mcnulty. Has a fracture boot and DME at home. Operative findings:: Significant scar tissue noted on the dorsal medial aspect of the left foot from previous surgery and wound which was healed. Full-thickness dissection revealed fibrotic scar tissue with some synovitis noted. The medial dorsal cutaneous nerve was entrapped in scar tissue. Neurectomy performed. The navicular cuneiform medial proximal screw was loose and backing out. Two speed plates were removed from the NC joint without complication. There was fibrotic tissue within the NC joint fusion line. No obvious signs of nonunion noted at first. The prior drill holes were cleansed with curette and no obvious osteomyelitis, purulence, drainage, malodor or signs of sinus tracking were noted. Piece of navicular was sent for both bone culture and pathology, given her history of open wound to rule out deep infection. Intraoperative fluoroscopy was utilized to confirm removal of the hardware. There was a abnormality noted to the central aspect of the navicular distally. Rongeur used to remove the fibrotic scar tissue at this area. There was a fracture noted to the navicular. The fracture was comminuted. The small pieces of bone were removed as they were too small to fixate. Upon removal this left a bone defect at the level of the navicular cuneiform joint which ultimately could be considered a nonunion of the joint at this area. Ultimately I believe the source of the patient's pain was due to the screw loosening. And I believe the screw was loosening due to the navicular fracture at the central NC joint ultimately causing a nonunion. Will plan to resume use of bone stimulator. Wound healing would be a concern given her previous difficulty with skin healing and wound complications. Operative note:: On this date and time patient was deemed an appropriate surgical candidate. With informed consent signed, the patient was taken to the operating theater after regional popliteal nerve block by anesthesia. Patient was positioned supine. General anesthesia was induced. IV Vanco, Levo. Tourniquet was applied to the right mid-calf @225mmHg. The right lower extremity was prepped and draped in normal sterile fashion. Left Gastroc Recession: The tourniquet was not inflated for this procedure. Attention was directed to the medial distal leg. An incision was made and dissection was carried down in a layered fashion to the peritenon. Peritenon was excised. There was a large amount of subcutaneous fat above and below the peritenon. Gastroc visualized. With the ankle in maximum dorsiflexion a 15 blade was used to transect the gastroc and a Summer fashion. Release of the some Achilles contracture was noted. The incisions were flushed with copious amounts of sterile saline and the wound was closed with 3-0 Vicryl and 4-0 Monocryl. Left foot hardware removal, neurectomy, open bone biopsy: Under intraoperative fluoroscopy the navicular was mapped out. An incision was made dorsal lateral to the prior healed wound site to avoid traumatizing this area. Full-thickness dissection was performed. Fibrotic scar tissue was appreciated at this site. There was significant contracture noted of the scar tissue medially. The medial dorsal cutaneous nerve was entrapped in scar tissue. A neurectomy was performed in order to remove that nerve to prevent nerve pain. Full-thickness dissection then down to the level of the bone. Hardware was removed and sent as culture. No obvious signs of deep infection appreciated. Once hardware was removed curette was used to debride the screw holes. Rongeur was used to take a piece of bone from the navicular which was sent for bone pathology and culture. Wound was flushed with gentamicin irrigation. Left EHL tendon lengthening: Due to the significant scarring from the wound, prior edema and scar contraction as well as the soft tissue there was cock up hallux deformity with tightness of the extensor tendon. Upon dissection and release of that dorsal scar tissue and tissue contracture, the extensor tendon did relax and the hallux was less cocked up. 15 blade was used to perform a Z-lengthening of the EHL releasing further contracture. Vicryl used to reapproximate the ends of the tendon lengthening site. Wound was flushed with gentamicin irrigation. ORIF navicular with non-union repair: Attention was then directed to the navicular bone. There was a comminuted fracture centrally at the distal aspect of the NC joint line. Initially the NC appeared fused as there was fibrotic scar tissue within the site. However under intraoperative fluoroscopy there was abnormal joint space noted where the NC should be had been fused. Within the NC joint line centrally and distally there was a fracture. The main transverse fracture line was stabilized. The pieces of comminuted fracture were removed leaving a bone defect at this area. The NC joint around this area was curetted and fenestrated after the fibrotic scar tissue and then had been resected. Wound was flushed with saline. Drill was used to fenestrate both aspects of the joint at this level. Due to the nonunion and the navicular fracture, bone allograft was then inserted and packed into this area to fill the bone defect. Next under intraoperative fluoroscopy the NC and fracture were temporarily fixated. A quad plate was then inserted on the dorsal medial aspect of the NC joint in between the hardware for the first metatarsal cuneiform joint. One leg of the speed plate initially appeared on x-ray to be in the joint however clinically it was drilled into bone and on live fluoroscopy views the leg was in fact into the navicular bone. In order to give extra compression another quad speed plate was inserted more central lateral on the navicular over the graft that had previously been inserted. The hardware did traverse/span both the NC joint and the fracture line. The Speed plates were inserted in accordance with manufacture guidelines and standard technique. Again intraoperative fluoroscopy and live fluoroscopy was utilized to make sure new hardware was not in the joint space. Final x-rays utilizing AP/MO and lateral views checked on intraoperative fluoroscopy and position of the reduction, fracture/fusion site, hardware was all deemed to be appropriate and stable. Any remaining allograft was packed into the nonunion and navicular fracture site. 2cc of patient's blood was added directly over nonunion site. Application of allograft (amniotic): Due to the patient's significant scarring and contracture with history of wound healing complications, decision made to use amniotic graft prior to skin closure. Piece of amniotic graft was cut in half and a piece was laid deep over the hardware to prevent adhesions to the hardware. Vicryl was used to close deep and subcutaneous tissue in a running fashion. The remaining piece of graft was then inserted prior to skin closure. Nylon was used to skin in an interrupted simple suture fashion. Skin cleansed. The tourniquet was deflated after 100 mins and immediate hyperemic response was noted to the digits. The wounds were cleansed. Xeroform, dry sterile dressing was then applied. The patient was awoken from anesthesia and transferred to recovery with vital signs stable and neurovascular status intact. Patient tolerated procedure and anesthesia well without complication. Materials: [employer] Quad Speed Plate x2 (23mm), [employer] Prodense x1 (10cc), [employer] x1 (4x4cm) amniotic graft Discharge/Plan: D/C home today when ready and vital signs stable. Patient is to maintain dressing clean dry and intact. Ice top of left foot and elevate on two pillows. Polar pack behind knee. NWB to the LLE with DME. Has RKS, walker. Rx for Oxy given. Continue vitamin D supplement. Obtain post op films, left foot, 3 views. Follow up with me in 1 week. Tourniquet time (min): 100 Condition: stable Disposition: same day Specimens:: Left hardware culture Left foot tissue culture Left navicular bone culture Left navicular bone path Complications:: None
--- NOTE | 2024-04-19 16:12 | SUR.OPER ---
1322- Dr Reyna gave verbal orders to provide an update to the family that we have started surgery. verbal orders repeated an correct. Spoke to patients on the phone and provided update. 1336- tourniquet up at 1336, pressure of 225 1427- Verbal order given by MD to call and update the afamily letting them know she was fixing the navicular fracture, and that she will be done operating soon. verbal order repeated and correct. Family did not answer the phone, preop staff called to update the family in the waiting area. 1436- tourniquet at 1 hour. Verbal orders given by MD to increase time by 30 minutes. verbal orders repeated and correct. 30 minutes added. 1505- Md gave verbal orders to call and update family that we were closing. verbal orders repeated and correct. preop staff notified family. 1506- tourniquet time at 1 hour and 30 minutes, MD notifed and gave verbal orders to add 10 minutes. verbal orders repeated and correct. 10 minutes added 1516- MD notified of tourniquet time being 1 hour and 40 minutes, verbal orders given to deflate tourniquet. verbal order repeated and correct. tourniquet deflated.
[2024-04-20 06:37] LABS: POC Glucose,Bedside 96 (70-110)
[2024-04-23 05:57] VITALS: BP 149/88; PULSE 85; RESP 15; TEMP 36.6; O2SAT 92
--- NOTE | 2024-04-23 05:57 | EXP.ANES.II ---
[facility] Anesthesia Record Part II Anesthesia Record Part II Discharge Time: 15:50 Destination: Surgical Day Care (OP Surgery) PACU nurse assessment reviewed?: Yes Patient Condition:: Good Anesthesia Complications:: None Swallowing reflex intact?: Yes Airway Patency: Patent Cyanosis?: No Blood Pressure: 149/88 SaO2: 92 Respiratory Rate: 15 Pulse Rate: 85 Temperature: 98 F Mental Status: Alert & Oriented Pain level:: 2 Nausea and/or vomitting:: None Intake, IV Amount: 0 Hydration: Adequate
== END 2024-04-19 16:30 | disposition home or self-care (01) ==
PROVIDERS: PCP Nurse Practitioner Family; Visit Provider Podiatrist
PROC: (CPT 28465; principal; 2024-04-19 12:15)
DX: T84.84XA Pain due to internal orthopedic prosthetic devices, implants and grafts, initial encounter (principal); M96.0 Pseudarthrosis after fusion or arthrodesis; S92.252K Displaced fracture of navicular [scaphoid] of left foot, subsequent encounter for fracture with nonunion; I89.0 Lymphedema, not elsewhere classified; G89.18 Other acute postprocedural pain; E03.9 Hypothyroidism, unspecified; I25.10 Atherosclerotic heart disease of native coronary artery without angina pectoris; I10 Essential (primary) hypertension; E11.9 Type 2 diabetes mellitus without complications; Z79.4 Long term (current) use of insulin; Z79.899 Other long term (current) drug therapy; Y83.1 Surgical operation with implant of artificial internal device as the cause of abnormal reaction of the patient, or of later complication, without mention of misadventure at the time of the procedure
CPT/HCPCS: 28465; 27687; 28234; 73620; 73630; 76000; 82962; 87070; 87205; 88304; C1713; C1776; J1100; J1580; J1885; J1956; J2250; J2405; J3010; J7120

== ENCOUNTER 2024-05-10 08:54 | Outpatient (CLI) | payer BC, SELFPAY ==
--- NOTE | 2024-05-10 09:03 | XR_ITS ---
FINAL REPORT CLINICAL HISTORY: Postoperative LT FOOT COMPARISON: 04/19/2024 FINDINGS: LEFT FOOT: Three views of the left foot were obtained. There is no acute fracture or dislocation. Postoperative changes are present in the left foot from a calcaneal osteotomy fused with a stable, and fusion of the first, second, and third tarsometatarsal joints with orthopedic plates and screws. There is soft tissue calcification in the medial midfoot again noted. Calcaneal spurring is present as well. IMPRESSION: Postoperative changes in the left foot, stable when compared with the prior exam of 04/19/2024. Reviewed, Interpreted and Dictated by Arjun Aggarwal III, MD Transcribed by Leda Ortiz Authenticated and [facility]
== END 2024-05-10 23:59 | disposition home or self-care (01) ==
LOC: RAD 08:55
PROVIDERS: PCP Nurse Practitioner Family; Visit Provider Podiatrist
DX: M79.672 Pain in left foot (principal); Z98.890 Other specified postprocedural states
CPT/HCPCS: 73630

== ENCOUNTER 2024-05-31 10:13 | Outpatient (CLI) | payer BC, SELFPAY ==
--- NOTE | 2024-05-31 10:17 | XR_ITS ---
FINAL REPORT CLINICAL HISTORY: left foot post surgery COMPARISON: 05/10/2024 FINDINGS: LEFT FOOT Three views demonstrate no acute fracture or dislocation. There are multiple side plates and screws securing the first, second, and third tarsometatarsal joints. Heterotopic bone formation is seen along the medial aspect of the first tarsometatarsal joint. There are orthopedic joe securing a healed osteotomy of the anterior calcaneus. On the lateral view, there is soft tissue swelling over the dorsum of the foot. IMPRESSION: Postoperative changes without acute bony abnormality, similar to the prior exam. Reviewed, Interpreted and Dictated by Blas Morocho MD Transcribed by Birgit Woodall Authenticated and . [facility]
== END 2024-05-31 23:59 | disposition home or self-care (01) ==
LOC: RAD 10:14
PROVIDERS: PCP Nurse Practitioner Family; Visit Provider Podiatrist
DX: Z98.890 Other specified postprocedural states (principal)
CPT/HCPCS: 73630

== ENCOUNTER 2024-06-25 16:02 | Outpatient (CLI) | payer BC, SELFPAY ==
--- NOTE | 2024-06-25 16:09 | XR_ITS ---
PROCEDURE INFORMATION: Exam: XR Left Foot Complete; Alignment Exam date and time: 06/25/2024 4:11 PM Age: 58 years old Clinical indication: Pain; Foot; Left; Prior surgery; Surgery date: 1-6 months; Surgery type: 2nd surgery in March; Additional info: Foot pain TECHNIQUE: Imaging protocol: Radiologic exam of the left foot. Views: 3 or more views. COMPARISON: No relevant prior studies available. FINDINGS: Bones/joints: Extensive postop changes again noted with arthrodesis of the 1st 2nd and 3rd tarsometatarsal joints stabilized by cortical plates. Hardware is intact. Bone mineral interface is unremarkable. Alignment is maintained. Evidence of previous calcaneal osteotomy stabilized by orthopedic pin. There are sheet like calcifications within the soft tissues along adjacent to the 1st tarsometatarsal joint unchanged. There are stable claw deformities of the phalanges. There is a prominent plantar spur arising from the calcaneus. Soft tissues: Mild soft tissue swelling along the dorsum of the midfoot unchanged. IMPRESSION: Stable postop changes within the midfoot as discussed above. No evidence of hardware failure.
== END 2024-06-25 23:59 | disposition home or self-care (01) ==
LOC: RAD 16:03
PROVIDERS: PCP Nurse Practitioner Family; Visit Provider Podiatrist
DX: M79.672 Pain in left foot (principal)
CPT/HCPCS: 73630

== ENCOUNTER 2024-08-06 15:37 | Outpatient (CLI) | payer BC, SELFPAY ==
--- NOTE | 2024-08-06 15:40 | XR_ITS ---
FINAL REPORT CLINICAL HISTORY: .surgery Apr 19, 2024 FINDINGS: LEFT FOOT Three views of the left foot demonstrate no acute fracture or dislocation. There are postoperative changes of the midfoot with multiple screws and screw plates. There is a stable seen in the distal lateral calcaneus. There is pes planus deformity and moderate degenerative change. There is a plantar calcaneal spur noted. The visualized joint spaces are normally aligned. The soft tissues are unremarkable. IMPRESSION: Postoperative and degenerative change without acute bony abnormality. Reviewed, Interpreted and Dictated by Arjun Aggarwal III, MD Transcribed by Sylvia Brenner Authenticated and . [facility]
[2024-08-06 16:32] LABS: Basophils # 0.1 K/mm3 (0-0.2); Basophils % 1.1 % (0.1-2.0); Eosinophils # 0.1 K/mm3 (0.0-0.4); Eosinophils % 1.2 % (0.1-12.0); Hematocrit 36.9 % (37.0-47.0); Hemoglobin 11.9 g/dL (12.2-16.2); Lymphocytes # 2.6 K/mm3 (0.7-4.5); Lymphocytes % 52.5 % (10-50); Mean Corpuscular HGB Conc 32.3 g/dL (31.8-35.4); Mean Corpuscular Hemoglobin 25.8 pg (27.0-31.2); Mean Corpuscular Volume 79.8 fl (81-99); Monocytes # 0.2 K/mm3 (0.1-1.0); Monocytes % 4.5 % (1.7-9.3); Neutrophils % 40.8 % (37.0-80.0); Platelet Count 285 K/mm3 (142-424); Red Blood Count 4.63 M/mm3 (4.20-5.40); Red Cell Distribution Width 17.6 % (11.5-17.5)
[2024-08-06 16:38] LABS: MANUAL DIFFERENTIAL MANUAL DIFFERENTIAL (MANUAL DIFF)
[2024-08-06 16:58] LABS: Estimated Glomerular Filt Rate 74 ml/min (>60); GFR (African American) 89 ML/MIN (>60)
[2024-08-06 16:59] LABS: Bilirubin,Indirect 0.4 mg/dL (0.0-0.9); VLDL Cholesterol 23 mg/dL (0-40)
[2024-08-06 17:14] LABS: Free T4 (Free Thyroxine) 0.83 ng/dl (0.78-2.19)
[2024-08-06 17:20] LABS: Eosinophils % 3 % (0-3); Giant Platelets 1+; Lymphocytes % 51 % (10-50); Monocytes % 3 % (2-9); Neutrophils % 42 % (42-76); Platelet Estimate Normal; RBC Morphology Normal; Total Cells Counted 100
[2024-08-06 17:28] LABS: Thyroid Stimulating Hormone 1.81 uIU/mL (0.465-4.68)
[2024-08-06 17:48] LABS: Alanine Aminotransferase 15 U/L (12-78); Alkaline Phosphatase 101 U/L (38-126); Anion Gap 8.4 mEq/L (5-15); Aspartate Amino Transferase 27 U/L (14-36); Bilirubin,Direct 0.3 mg/dl (0.0-0.4); Bilirubin,Total 0.7 mg/dl (0.2-1.3); Bilirubin,Unconjugated 0.4 mg/dL (0.0-1.1); Blood Urea Nitrogen 19 mg/dl (7-17); Calcium 9.2 mg/dl (8.4-10.2); Carbon Dioxide 29 mmol/L (22.0-30.0); Chloride 106 mmol/L (98-107); Cholesterol 244 mg/dl (140-200); Glucose 111 mg/dl (74-100); Potassium 4.4 mmoL/L (3.5-5.1); Sodium 139 mmol/L (136-145); Total Protein,Serum 6.8 g/dl (6.3-8.2); Triglycerides 116 mg/dl (30-150)
[2024-08-06 17:49] LABS: HDL Cholesterol > 110 mg/dl (40-60)
[2024-08-06 17:59] LABS: Direct LDL Cholesterol 88.53 mg/dL (100-129)
[2024-08-09 09:10] LABS: Dopamine, Plasma 43 pg/mL (0-48); Epinephrine, Plasma 44 pg/mL (0-62); Norepinephrine, Plasma 386 pg/mL (0-874)
[2024-08-12 16:08] LABS: Renin Activity, Plasma 0.191 ng/mL/hr (0.167-5.380)
[2024-08-13 15:13] LABS: Metanephrine Plasma 41.9 pg/mL (0.0-88.0); Normetanephrine Plasma 70.8 pg/mL (0.0-244.0)
== END 2024-08-06 23:59 | disposition home or self-care (01) ==
LOC: LAB 15:38
PROVIDERS: PCP Nurse Practitioner Family; Visit Provider Internal Medicine
DX: I25.10 Atherosclerotic heart disease of native coronary artery without angina pectoris (principal); I10 Essential (primary) hypertension; E78.2 Mixed hyperlipidemia; G47.33 Obstructive sleep apnea (adult) (pediatric); Z98.890 Other specified postprocedural states
CPT/HCPCS: 36415; 73630; 80048; 80061; 80076; 82088; 82384; 83735; 83835; 84244; 84439; 84443; 85007; 85025; 85027

== ENCOUNTER 2024-08-09 10:00 | Outpatient (RCR) | payer BC, SELFPAY ==
--- NOTE | 2024-07-11 14:52 | HMH.PTOPEV ---
PT Outpatient Evaluation Rehab PT Outpatient Evaluation Start: 07/11/24 13:57 Freq: Status: Active Protocol: Document 07/11/24 14:34 PADDY (Rec: 07/11/24 14:51 PADDY [id number]) E-signed By Gerhard Her, PT Outpatient Therapy Subjective History Subjective History This is the initial PT eval for Claudia Jean, 58 yoaaf who presents with c/o L ankle, foot pain ~12 wks S/P ankle/ foot surgery with navicular fx ORIF and Achilles tendon lengthening. She reports no pain at rest, but increased pain with prolonged walking in her fx boot. She reports significant stiffness throughout the L ankle also. She has noticeably increased scar tissue at the superior incision site on the L calf. She has PMH of DM and prior L foot surgery complicated by poor wound healing and post-op lymphedema. New diagnosis of cancer in past 12 No months? Chief Complaint Pain,Stiff Symptom Type Other Symptoms Relieved By Rest/Positioning Symptoms Aggravated By Physical Activity,Walking Prior Functional Limitations None Current Functional Limitations Standing,Walking,Stairs Symptom Description Activity Dependent Level of pain today (0-10) 0 Pain scale - at its worst (0-10) 5 Ankle/Foot Eval Gait Observation General Gait Pattern Observation Antalgic Gait Assistive Device Ambulation Assistive Device None Palpation Tenderness left Ankle/Foot Palpation Findings Tenderness Ankle/Foot Palpation Overall Comment achilles tendon incision site 2/4 ROM Ankle/Foot Dorsiflexion w/Knee Extended 0-1 Active Range Motion (degrees) Ankle/Foot Plantar Flexion Active Range 0-32 of Motion (degrees) Ankle/Foot Eversion Active Range of 0-10 Motion (degrees) Ankle/Foot Inversion Active Range of 0-10 Motion (degrees) MMT Ankle Dorsiflexion Strength Grade 2 Poor Ankle Plantarflexion Strength Grade 3 Fair Foot Eversion Strength Grade 2 Poor Foot Inversion Strength Grade 2 Poor Lower Extremity Functional Index Activities Today, do you or would you have any difficulty at all with: a.Any of your usual work, housework or Quite a bit of difficulty school activities b. Your usual hobbies, recreational or Extreme difficulty or unable sporting activities to perform activity c. Getting into or out of the bath Quite a bit of difficulty d. Walking between rooms Moderate difficulty e. Putting on your shoes or socks Quite a bit of difficulty f. Squatting Extreme difficulty or unable to perform activity g. Lifting an object, like a bag of A little bit of difficulty groceries from the floor h. Performing light activities around A little bit of difficulty your home i. Performing heavy activities around Extreme difficulty or unable your home to perform activity j. Getting into or out of a car Moderate difficulty k. Walking 2 blocks Extreme difficulty or unable to perform activity l. Walking a mile Extreme difficulty or unable to perform activity m. Going up or down 10 stairs (about 1 Moderate difficulty flight of stairs) n. Standing for 1 hour Moderate difficulty o. Sitting for 1 hour A little bit of difficulty p. Running on even ground Extreme difficulty or unable to perform activity q. Running on uneven ground Extreme difficulty or unable to perform activity r. Making sharp turns while running fast Quite a bit of difficulty s. Hopping Extreme difficulty or unable to perform activity t. Rolling over in bed A little bit of difficulty LEFI Score Lower Extremity Functional Index Score 24 Outpatient Therapy Assessment Impairments Problems/Impairmments Palpation Tenderness,Impaired Range of Motion,Impaired Strength,Impaired Endurance, Impaired Gait Pattern,Impaired Walking,Impaired Standing, Impaired Household Care, Impaired Stair Climbing, Impaired Balance,Subjective C/ O Pain,Impaired Self Care/Self Management Prognosis Rehab Potential Good Comment Skilled therapy is indicate to improve L ankle ROM, reduce, pain, increase L LE strength to return pt to PLOF. Clinical Impression Consistent with Diagnosis Yes Short Term Goals Number of Weeks 4 Decreased Palpation Tenderness Yes: 1/4 L achilles Increase Range of Motion Yes: L ankle by 5 deg all dir Increase Strength Yes: L ankle >3/5 throughout Improve Gait Pattern with Assistive Yes: no antalgic gait in Device walking boot. Improve LEFI Score Yes: >30 Decrease Subjective C/O Pain Yes: 3/10 L ankle at worst Patient to be Ind w/ HEP Yes Solar Maintenance Technician Goals Number of Weeks 6-8 Decreased Palpation Tenderness Yes: 0/4 L achilles tendon Increase Range of Motion Yes: L ankle by 10 deg all dir Increase Strength Yes: L ankle at least 4/5 throughout Improve Gait Pattern without Assistive Yes: no antalgic gait without Device walking boot Improve LEFI Score Yes: > 40 Decrease Subjective C/O Pain Yes: 1/10 at worst L ankle Patient to be Ind w/ Advanced HEP Yes Outpatient Therapy Plan of Care Treatment Plan May Include Therapeutic Exercise Including Home Yes Exercise Program Manual Therapy Techniques Yes Neuromuscular Re-education Yes Therapeutic Activities to Return to Yes Previous Functional/Work Level Gait Training Yes ADL/Self Care Education Yes Thermal Modalities Yes Electrical Stimulation Yes Ultrasound/Phonophoresis Yes Orthotics/Bracing/Splinting Yes Massage Yes Manual Lymphatic Drainage Yes Eval/Re-Eval Yes Frequency Times per week 1-2 Duration Number of Weeks 6-8 Addendums This patient is a candidate for social No or vocational rehab? Patient/Guardian verbally acknowledges Yes understanding of treatment program and consents to further treatment? Patient/Guardian verbally acknowledges Yes understanding of diagnosis, prognosis and goals for treatment? Eval Complexity PT Charges 59759 - High Complexity Shoulder/Elbow Eval Shoulder Objective Measurements Elbow Objective Measurements PHYSICIAN CERTIFICATION: I certify the specified therapy services for Claudia Jean are required, authorized, and reviewed every 30 days.
== END 2024-08-09 23:59 | disposition home or self-care (01) ==
LOC: PT 10:00
PROVIDERS: Visit Provider Podiatrist
DX: M76.62 Achilles tendinitis, left leg (principal); G89.18 Other acute postprocedural pain; M96.89 Other intraoperative and postprocedural complications and disorders of the musculoskeletal system; M96.0 Pseudarthrosis after fusion or arthrodesis
CPT/HCPCS: 97110; 97112; 97140; 97163; 97530

== ENCOUNTER 2024-08-14 08:45 | Outpatient (CLI) | payer BC, SELFPAY ==
--- NOTE | 2024-08-14 08:48 | CA_ITS ---
FINAL REPORT CLINICAL HISTORY: HTN COMPARISON: None FINDINGS: DOPPLER RENAL VESSELS HISTORY: Hypertension . FINDINGS: Intrarenal resistive indices on the right are 0.62-0.69, normal . Intrarenal resistive indices on the left are 0.63-0.69, normal . Right main renal artery systolic velocity: 169 cm/sec. Aortic-right renal artery flow velocity ratio: 1.7 COMMENT: No evidence of hemodynamically significant renal artery stenosis . Left main renal artery systolic velocity: 138 cm/sec. Aortic-left renal artery flow velocity ratio: 1.4 COMMENT: No evidence of hemodynamically significant renal artery stenosis . IMPRESSION: No evidence of hemodynamically significant renal artery stenosis CTA or gadolinium-enhanced MR may be considered as a more sensitive exam. Alternatively noncontrast MRI may be considered for assessing main renal arteries for stenosis as a more sensitive exam if the patient has renal insufficiency. Reviewed, Interpreted and Dictated by Shayna Daly MD Transcribed by Leda Ortiz Authenticated and [facility]
--- NOTE | 2024-08-14 09:27 | US_ITS ---
FINAL REPORT TECHNIQUE: Ultrasound images of the kidneys and bladder were obtained. 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 COMPARISON: None FINDINGS: The right kidney measures 10.2 cm in length. It is normal in echogenicity. There is no hydronephrosis. The left kidney measures 9.4 cm in length. It is normal in echogenicity. There is no hydronephrosis. IMPRESSION: No renal abnormality identified. Reviewed, Interpreted and Dictated by Shayna Daly MD Transcribed by Leda Ortiz Authenticated and [facility]
== END 2024-08-14 23:59 | disposition home or self-care (01) ==
LOC: RT 08:45
PROVIDERS: PCP Nurse Practitioner Family; Visit Provider Internal Medicine
DX: I10 Essential (primary) hypertension (principal); I25.10 Atherosclerotic heart disease of native coronary artery without angina pectoris; E78.2 Mixed hyperlipidemia
CPT/HCPCS: 76770; 93976

== ENCOUNTER 2024-10-12 09:07 | Outpatient (CLI) | payer BC, SELFPAY ==
[2024-10-12 10:21] LABS: Chloride 97 mmol/L (98-107); Potassium 3.9 mmoL/L (3.5-5.1); Sodium 134 mmol/L (136-145)
[2024-10-12 10:24] LABS: Anion Gap 9.9 mEq/L (5-15); Blood Urea Nitrogen 21 mg/dl (7-17); Carbon Dioxide 31 mmol/L (22.0-30.0); Estimated Glomerular Filt Rate 64 ml/min (>60); GFR (African American) 78 ML/MIN (>60)
[2024-10-12 10:25] LABS: Calcium 9.3 mg/dl (8.4-10.2); Glucose 78 mg/dl (74-100)
[2024-10-12 10:54] LABS: Hemoglobin A1C 6.1 % (4.0-6.0)
== END 2024-10-12 23:59 | disposition home or self-care (01) ==
LOC: LAB 09:08
PROVIDERS: PCP Nurse Practitioner Family; Visit Provider Internal Medicine
DX: E11.40 Type 2 diabetes mellitus with diabetic neuropathy, unspecified (principal); I10 Essential (primary) hypertension; Z79.4 Long term (current) use of insulin
CPT/HCPCS: 36415; 80048; 83036

== ENCOUNTER 2024-10-19 08:27 | Outpatient (CLI) | payer BC, SELFPAY ==
--- NOTE | 2024-10-19 08:32 | XR_ITS ---
FINAL REPORT CLINICAL HISTORY: p/o pain f/u COMPARISON: 08/06/2024 FINDINGS: AP, oblique and lateral views of the left foot were obtained. Again seen are postoperative changes from fusion of the 1st through 3rd tarsometatarsal joints. The hardware appears unchanged. There is no acute fracture or acute dislocation. There is mild multijoint degenerative disease. There is no acute soft tissue abnormality. IMPRESSION: Postoperative and degenerative changes without acute osseous abnormality of the left foot. Reviewed, Interpreted and Dictated by Tammi Francisco MD Transcribed by Birgit Woodall Authenticated and [facility]
== END 2024-10-19 23:59 | disposition home or self-care (01) ==
LOC: LAB 08:28
PROVIDERS: PCP Nurse Practitioner Family; Visit Provider Podiatrist
DX: M79.672 Pain in left foot (principal)
CPT/HCPCS: 73630

== ENCOUNTER 2024-12-03 13:30 | Outpatient (CLI) | payer BC, SELFPAY ==
[2024-12-03 14:15] LABS: Anion Gap 10.5 mEq/L (5-15); Blood Urea Nitrogen 21 mg/dl (7-17); Calcium 9.9 mg/dl (8.4-10.2); Carbon Dioxide 37 mmol/L (22.0-30.0); Chloride 94 mmol/L (98-107); Estimated Glomerular Filt Rate 64 ml/min (>60); GFR (African American) 78 ML/MIN (>60); Glucose 104 mg/dl (74-100); Potassium 3.5 mmoL/L (3.5-5.1); Sodium 138 mmol/L (136-145)
== END 2024-12-03 23:59 | disposition home or self-care (01) ==
LOC: LAB 13:32
PROVIDERS: PCP Nurse Practitioner Family; Visit Provider Internal Medicine
DX: E78.2 Mixed hyperlipidemia (principal); I10 Essential (primary) hypertension
CPT/HCPCS: 36415; 80048

== ENCOUNTER 2025-03-04 14:34 | Outpatient (CLI) | payer BC, SELFPAY ==
--- OUTSIDE RECORDS SUMMARY | 2025-03-04 14:37 | XMS_ITS | Clinical Summary ---
Author Organization [facility] Address [address] [place] [address] Care Team Providers Care Hot Mill Worker Name Role Phone Luis Rivera MD Primary Care Provider [phone] Allergies Active Allergy Reactions Criticality Noted Date Comments Amitriptyline Unknown - Patient st ates they do not know rxn details Low 05/05/2013 Medications pen needle, diabetic (B-D UF III MINI PEN NEEDLES) 31G X 5 MM misc Use 1 x day 8 Active Blood Glucose Monitoring Suppl (Blood Glucose Monitor System) w/Device kit dispense 1 meter, diagnosis E11.9 9 Active Glucose Blood (BLOOD GLUCOSE TEST STRIPS 333 ) 3 (three) times a day. for testing 9 Active ibuprofen 800 MG tablet Take 1 tablet (800 mg) by mouth 2 (two) times a day. 3 Active acetaminophen (Tylenol) 500 MG tablet 1 tab orally every 6 hours as needed for pain for 30 days 4 Active aspirin 81 MG EC tablet Take 1 tablet (81 mg) by mouth Daily. Active hydroCHLOROthiazid e (HYDRODiuril) 25 MG tablet Take 1 tablet (25 mg) by mouth 1 (one) time each day. Active ondansetron (Zofran) 8 MG tablet Take 1 tablet (8 mg) by mouth every 6 (six) hours if needed for nausea. 3 Active famotidine (Pepcid) 40 MG tablet Take 1 tablet (40 mg) by mouth 1 (one) time each day. 3 Active bisoprolol (Zebeta) 10 MG tablet Take 1 tablet (10 mg) by mouth 1 (one) time each day. 4 Active DULoxetine (Cymbalta) [address] capsule Take 1 capsule (30 mg) by mouth 2 (two) times a day. 4 Active solifenacin (VESIcare) 10 MG tablet Take 1 tablet (10 mg) by mouth 1 (one) time each day. Active atorvastatin (Lipitor) 40 MG tablet Take 1 tablet (40 mg) by mouth Daily. 8 Active methocarbamol (Robaxin) 750 MG tablet Take 1 tablet (750 mg) by mouth 3 (three) times a day if needed for muscle spasms. 1-2 tablets 4 Active Folinic-Plus 4-50-2 MG tablet Take 1 tablet by mouth 1 (one) time each day. 4 Active gabapentin (Neurontin) 600 MG tablet Take 1 tablet (600 mg) by mouth 2 (two) times a day. 3 Active meloxicam (Mobic) 7.5 MG tabletIndications: Osteoarthritis, unspecified osteoarthritis type, unspecified site Take 1 tablet (7.5 mg) by mouth 1 (one) time each day. Take with food. Do NOT TAKE with other NSAIDS 90 tablet 1 4 Active Active Problems No known active problems Immunizations Immunization Administration Dates Next Due Hep B, adult 01/07/2005,08/12/2004,04/15/2004 Influenza, Unspecified 06/16/2015,06/20/2014 Influenza, injectable, quadr ivalent, preservative free 06/02/2020 Influenza, recombinant, quad rivalent, injectable, preservative free 05/31/2022 Influenza, seasonal, injecta ble, preservative free 07/17/2012 PPD Skin Test (TB Skin Test) 01/06/2010, 01/13/2009,01/30/2008,06/19,06/14/2006,06/04/2005,04/29/2004 ,04/15/2004 Pneumococcal Polysaccharide PPV23 10/22/2014 TD (adult), 2 Lf tetanus tox oid, preservative free, adsorbed 05/29/2006 Tdap 01/28/2016 Family History Medical History Relation Name Comments Gout Brother 1 Heart disease Brother 1 Hypertension Brother 2 Diabetes type II Father Hypertension Father Cardiac Devices Pacemaker Present Maternal Grandmother Hypertension Maternal Grandmother Coronary artery disease Mother Diabetes Mother Hypertension Mother Rheum arthritis Mother Rheumatic fever Mother Anemia Other 1 Arthritis Other 2 Asthma Other 3 Obesity Other 4 Tuberculosis Other 5 Relation Name Status Comments Brother 1 Brother 2 Father Maternal Grandmother Mother Other 1 Other 2 Other 3 Other 4 Other 5 Social History Tobacco Use Types Packs/Day Years Used Date Smoking Tobacco: Never Smokeless Tobacco: Never Alcohol Use Standard Drinks/Week Comments Yes 0 (1 standard drink = 0.6 oz pure alcohol) Alcoholic Drinks/day: Minimum alcohol consumption PHQ-2 Answer Date Recorded Patient Health Questionnaire-2 Score 1 12/28/2023 Comments Unknown Sex and Gender Information Value Date Recorded Sex Assigned at Female 12/04/2023 5:42 PM EDT Legal Sex Female 7:49 PM EDT Gender Identity Female 12/04/2023 5:42 PM EDT Sexual Orientation Not on file Last Filed Vital Signs Vital Sign Reading Time Taken Comments Blood Pressure 123/85 12/02/2023 10:48 AM EDT Pulse 65 12/02/2023 10:48 AM EDT Temperature 36.6 C (97.8 F) 06/07/2018 2:03 PM EDT Respiratory Rate 16 12/02/2023 10:48 AM EDT Oxygen Saturation 97% 12/02/2023 10:48 AM EDT Inhaled Oxygen Concentration - - Weight 107 kg (236 lb 15.9 oz) 12/02/2023 10:48 AM EDT Height 167.6 cm (5' 6 ) 12/02/2023 10:48 AM EDT Body Mass Index 38.25 12/02/2023 10:48 AM EDT Plan of Treatment Health Maintenance Due Date Last Done Comments [facility]-Infant/Child/Adol SDOH Screenings 1965 [facility]- SDOH Screenings 1983 [facility]-Adult SDOH Screenings 1983 CT Colonography 2010 FIT-DNA 2010 FIT 2010 FOBT 2010 Sigmoidoscopy 2010 [facility]-Zoster Vaccines (1 of 2) 2015 [facility]-Pneumococcal Vaccine: 50+ Years (2 of 2 - PCV) 10/22/2015 10/22/2014 [facility]-Pap Smear 12/06/2015 12/05/2012, 09/29, 08/04/2009, Additional history exists [facility]-Breast Cancer Screening 07/15/2017 07/15/2015, 0 12/20/2013 [facility]-Cervical Cancer Screening 12/05/2017 [facility]-HPV/Cotest 12/05/2017 12/05/2012, 09/29, 08/04/2009, Additional history exists Colonoscopy 01/30/2024 01/29/2014 [facility]-Colorectal Cancer Screening 01/30/2024 [id number] Vaccine ( season) 2024 07/01/2021, 10/07/2020, 09/05/2020 [facility]-Depression Screening 12/27/2024 12/28/2023 [facility]-Influenza Vaccine (#1) 04/29/202505/31, 06/02/2020, 06/16/2015, Additional history exists [facility]-DTaP,Tdap,and Td Vaccines (2 - Td or Tdap) 01/27/2026 01/28/2016, 05/29/2006 [facility]-Hepatitis B Vaccines Completed 005, 08/12/2004, 04/15/2004 [facility]-Diabetes: Hemoglobin A1C Discontinued 02/21/2015, 11/27/2013 [facility]-HIV Screening Completed 12/02/2023 [facility]-Hepatitis C Screening Completed 12/02/2023 [facility]-Obesity Intervention Completed 024, 12/28/2023, 12/02/2023 HPV Vaccines Aged Out No longer eligi ble based on patient's age to complete this topic [facility]-HIB Vaccines Aged Out No longer e ligible based on patient's age to complete this topic [facility]-Hepatitis A Vaccines Aged Out No longer eligible based on patient's age to complete this topic [facility]-IPV Vaccines Aged Out No longer e ligible based on patient's age to complete this topic [facility]-Rotavirus Vaccines Aged Out No lo nger eligible based on patient's age to complete this topic Procedures Procedure Name Priority Date/Time Associated Diagnosis Comments ACUTE HEPATITIS PANEL Routine 12/02/2023 12:35 PM EDT Positive JADYN (antinuclear antibody) HIV 1/2 ANTIBODY/ANTIGEN SCREEN WITH REFLEX TO HIV I/II DIFFERENTIATION Routine 12/02/2023 12:35 PM EDT Positive JADYN (antinuclear antibody) MAMMOGRAPHY BREAST SCREENING TOMOSYNTHESIS BILATERAL Routine 07/15/2015 12:00 PM EST HEMOGLOBIN A1C Routine 02/21/2015 4:08 PM EDT COLONOSCOPY 01/29/2014 CYTO DATA CONVERSION Routine 12/05/2012 12:00 AM EDT from Last 3 Months or Most Recently Relevant to Health Maintenance Results * HIV 1 & 2 Antibody/Antigen Screen (12/02/2023 12:35 PM EDT) HIV 1 & 2 Antibody/Antigen Screen Non Reactive Non Reactive 12/02/2023 2:39 PM EDT [facility] Comment:Screening for HIV 1 & 2 antibodies, and P24 antigen is NONREACTIVE. No confirmatory testing is required. Blood Venous blood specimen / Unknown Venipuncture / Unknown 12/02/2023 12:35 PM EDT 12/02/2023 12:37 PM EDT august Aziza [employer] [facility] BLOOD ORDERABLES Final Result Performing Organization Address City/State/[facility] Co de Phone Number [facility] [address] [place] [phone] * Acute Hepatitis Panel (12/02/2023 12:35 PM EDT) Hepatitis B Surf Antigen Negative Negative 12/02/2023 2:57 PM EDT [facility] Hepatitis C Antibody Negative Negative 12/02/2023 2:57 PM EDT [facility] Hepatitis A Antibody IgM Negative Negative 12/02/2023 2:57 PM EDT [facility] Hepatitis B Core Antibody IgM Negative Negative 12/02/2023 2:57 PM EDT [facility] Blood Venous blood specimen / Unknown Venipuncture / Unknown 12/02/2023 12:35 PM EDT 12/02/2023 12:37 PM EDT august R Aziza [employer] LAB BLOOD ORDERABLES Final Result [facility] [address] [place] [address] * Mammography Breast Screening Tomosynthesis Bilateral (07/15/2015 12:00 PM EST) Anatomical Region Laterality Modality Breast Bilateral Mammography Impressions 11/13/2015 10:11 AM EDT BI-RADS Assessment Category 2: Benign finding. RECOMMENDATION: Routine screening mammogram in 1 year. Page 1 of 2 Patient Name:Claudia Jean : 1965 Age: 49 Gender: femaleDate of Service: 07/15/2015 eferring Alex:Rosalia Huitron M.D.Account: [id number] COMMUNICATION: The results and recommendations will be sent to the patient in a printed lay language version of the imaging report. The mammogram was read with the assistance of CAD and tomosynthesis. Read By: Dario Condon M.D. Signed By: Dario Condon M.D. on 07/15/2015 at 02:43:51 PM Page 2 of 2 Read By: DARIO CONDON M.D. Signed By: DARIO CONDON M.D. on 07/15/2015 at 14:43:53 Narrative 11/13/2015 10:11 AM EDT Patient Name:Claudia Jean : 1965 Age: 49 Gender: femaleDate of Service: 07/15/2015 eferring Phlincoln:Rosalia Huitron M.D.Account: [id number] Rosalia Huitron M.D. [address], [facility] [address] [place] [address] FINAL REPORT PROCEDURE: Tomosynthesis Bilateral Screening - bilateral , Screening Mammogram with CAD - bilateral HISTORY: Patient is 49 years old and is seen for screening mammography. The patient has a history of bilateral reduction mammoplasty more than 10 years ago.The patient has no personal history of cancer. The patient has no family history of breast cancer. COMPARISON: The present examination has been compared to prior imaging studies performed at [facility] on 04/30/2008, 06/27/2008, 12/31/2008, 09/09/2009, 10/23/2010, 10/25/2011, 12/05/2012 and 12/20/2013. MAMMOGRAM TECHNIQUE: The following mammographic views were obtained: bilateral craniocaudal; bilateral mediolateral oblique; and bilateral tomosynthesis images were obtained. Computer assisted detection was used in the interpretation of this study. MAMMOGRAM FINDINGS: The breast tissue is heterogeneously dense, which may obscure detection of small masses. There are stable post-reduction mammoplasty areas of scarring in both breasts. There are no suspicious masses, calcifications, or areas of architectural distortion in either breast. The findings are confirmed with tomosynthesis. Procedure Note Dario Condon - 01/04/2021 Patient Name:Claudia Jean : 1965 Age: 49 Gender: femaleDate of Service:07/15/2015 eferring Phy:Rosalia Huitron M.D.Account: [id number] Rosalia Huitron M.D. [facility] [address], [address] [address] FINAL REPORT PROCEDURE: Tomosynthesis Bilateral Screening - bilateral , Screening Mammogram withCAD - bilateral HISTORY: Patient is 49 years old and is seen for screening mammography. The patienthas a history of bilateral reduction mammoplasty more than 10 years ago.The patient has no personal history ofcancer. The patient has no family history of breast cancer. COMPARISON: The present examination has been compared to prior imaging studiesperformed at [facility] on 04/30/2008, 06/27/2008, 12/31/2008, 09/09/2009, 10/23/2010, 10/25/2011,12/05/2012 and 12/20/2013. MAMMOGRAM TECHNIQUE: The following mammographic views were obtained: bilateral craniocaudal;bilateral mediolateral oblique; and bilateral tomosynthesis images were obtained. Computer assisted detection was usedin the interpretation of this study. MAMMOGRAM FINDINGS: The breast tissue is heterogeneously dense, which may obscure detection ofsmall masses. There are stable post-reduction mammoplasty areas of scarring in bothbreasts. There are no suspicious masses, calcifications, or areas of architecturaldistortion in either breast. The findings are confirmed with tomosynthesis. IMPRESSION: BI-RADS Assessment Category 2: Benign finding. RECOMMENDATION: Routine screening mammogram in 1 year. Page 1 of 2 Patient Name:Claudia Jean : 1965 Age: 49 Gender: femaleDate of Service:07/15/2015 eferring Phy:Rosalia Huitron M.D.Account: [id number] COMMUNICATION: The results and recommendations will be sent to the patient in a printedlay language version of the imaging report. The mammogram was read with the assistance of CAD and tomosynthesis. Read By: Dario Condon M.D. Signed By: Dario Condon M.D. on 07/15/2015 at 02:43:51 PM Page 2 of 2 Read By: DARIO CONDON M.D. Signed By: DARIO CONDON M.D. on 07/15/2015 at 14:43:53 Historical Provider IMG BI PROCEDURES Final R esult * (ABNORMAL) Hemoglobin A1c (02/21/2015 4:08 PM EDT) Hemoglobin A1c 8.5(H) 4.7 - 6.0 % [facility] Comment: (NOTE) Glycohemoglobin, 0 years and up: 4.7 - 6.0% . HbA1c assay performed by an ion-exchange chromatography method that is certified traceable to the DCCT. 02/21/2015 4:08 PM EDT 02/21/2015 4:13 PM EDT Historical Provider LAB BLOOD ORDERABLES Freda l Result [facility] * COLONOSCOPY (01/29/2014) Anatomical Region Laterality Modality Endoscopy Narrative 01/29/2014 Ordered by an unspecified provider. Historical Provider GI PROCEDURE ORDERABLES F inal Result * Cytology (12/05/2012 12:00 AM EDT) 12/05/2012 12/06/2012 11: 46 AM EDT Narrative [facility] - 12/07/2012 3:53 PM EDT [facility] MR #: [id number] [facility] [place] [address] 1965 (Age: 47) FB Collect Date: 12/05/2012 00:00 Receipt Date: 12/06/2012 11:46 Page 1 DEPARTMENT OF PATHOLOGY AND LABORATORY MEDICINE CYTOPATHOLOGY REPORT Email: [email or web address] [phone] ATTENDING MD/Practitioner: Anjum Huitron MD Service: [facility] Location: [facility] Reported: 12/07/2012 15:53 Collected: 12/05/2012 00:00 INTERPRETATION A. THIN PREP (CERVICAL/VAGINAL): NEGATIVE FOR INTRAEPITHELIAL LESION OR MALIGNANCY. SATISFACTORY FOR EVALUATION; ENDOCERVICAL/ TRANSFORMATION ZONE COMPONENT PRESENT. Slide scanned and imaged by [employer] ThinPrep Imaging System with manual review of all selected chen. Please correlate with HPV results (see microbiology report, or call [phone]). If HPV positive/cytology negative, both tests should be repeated in about 12 months. If both are negative, rescreen in 3 years (www.asccp.org). Electronically Signed Out By LITA Keller (ASCP) LITA Keller (ASCP) Cervical cytology is a screening test primarily for squamous cancers and precursors and has associated false negative and positive results. New technologies such as liquid based sampling may decrease but will not eliminate all false negative results. Regular screening and follow-up of unexplained clinical signs and symptoms are recommended to minimize false negative results. Please see the ASCCP website (www.asccp.org) for followup recommendations. If HPV testing was requested, correlation with the results is suggested (please call Microbiology at [phone] for results). CLINICAL INFORMATION: Menstrual History: Cyclic Date of Last Menstrual Period: {Not Provided} Other Clinical Conditions: HPV testing requested. SPECIMEN DESCRIPTION: A: THIN PREP (CERVICAL/VAGINAL) THIN PREP PROCESS CELLULAR ENHANCEMENT ICD: F: A; RT IMAGE 33143 SNOMED CODES: A; G2H311 [id number] In cases where a pathologist has signed out the report, the service has been rendered in part by a resident. The signing pathologist has performed and is responsible for the reported pathologic evaluation. us Rosalia Huitron MD LAB PATHOLOGY ORDERABLES Final R esult [facility] from Last 3 Months or Most Recently Relevant to Health Maintenance Insurance Care Teams Hot Mill Worker Relationship Specialty Start Date End Date Luis Rivera MD [address] [place] [address] [place] [address] PCP - General 01/09/21
--- OUTSIDE RECORDS SUMMARY | 2025-03-04 14:37 | XMS_ITS | Encounter Summary ---
Author Organization [facility] Address [address] [place] [address] Care Team Providers Care Rigger Name Role Phone Luis Rivera MD Primary Care Provider [phone] Reason for Referral * Consultation (Routine) - Closed Specialty Diagnoses / Procedures Referred By Adela dawn Referred To Contact Rheumatology Diagnoses Positive JADYN (antinuclear antibody) Celeste Mcnulty, ELECTROCHEMIST [address] [place] [address] Phone: tel: fax: Referral ID Status Reason Start Date Expiration Date V isits Requested Visits Authorized [id number] Closed Specialty Services Required 11/23/2023 05/24/2025 1 1 Encounter Details Date Type Department Care Team (Late st Contact Info) Description 11/23/2023 Community [facility] [address] [place] [address] Celeste Mcnulty, ELECTROCHEMIST [address] [place] [address] Positive JADYN (antinuclear antibody) (Primary Dx) Social History Tobacco Use Types Packs/Day Years Used Date Smoking Tobacco: Never Alcohol Use Standard Drinks/Week Comments Yes 0 (1 standard drink = 0.6 oz pure alcohol) Alcoholic Drinks/day: Minimum alcohol consumption Comments Unknown Sex and Gender Information Value Date Recorded Sex Assigned at Female 12/04/2023 5:42 PM EDT Legal Sex Female 7:49 PM EDT Gender Identity Female 12/04/2023 5:42 PM EDT Sexual Orientation Not on file documented as of this encounter Plan of Treatment Scheduled Referrals Name Type Priority Associated Diagnoses Order Schedule Ambulatory referral to Rheumatology Outpatient Referral Routine Positive JADYN (antinuclear antibody) Expected: 11/23/2023 (Approximate), Expires: 05/25/2025 documented as of this encounter Visit Diagnoses Diagnosis Positive JADYN (antinuclear antibody)- Primary Other and unspecified nonspecific immunological findings documented in this encounter Care Teams Rigger Relationship Specialty Start Date End Date Luis Rivera MD [address] [facility] [place] [address] PCP - General 01/09/21 documented as of this encounter
[2025-03-04 16:17] LABS: Anion Gap 13.2 mEq/L (5-15); Blood Urea Nitrogen 17 mg/dl (7-17); Calcium 8.8 mg/dl (8.4-10.2); Carbon Dioxide 34 mmol/L (22.0-30.0); Chloride 94 mmol/L (98-107); Creatinine,Serum 0.80 mg/dl (0.52-1.04); Estimated Glomerular Filt Rate 73 ml/min (>60); GFR (African American) 89 ML/MIN (>60); Glucose 94 mg/dl (74-100); Magnesium 2.0 mg/dl (1.6-2.3); Potassium 3.2 mmoL/L (3.5-5.1); Sodium 138 mmol/L (136-145)
[2025-03-04 17:37] LABS: Hemoglobin A1C 7.6 % (4.0-6.0)
== END 2025-03-04 23:59 | disposition home or self-care (01) ==
LOC: LAB 14:35
PROVIDERS: PCP Nurse Practitioner Family; Visit Provider Internal Medicine
DX: E11.40 Type 2 diabetes mellitus with diabetic neuropathy, unspecified (principal); I10 Essential (primary) hypertension; I25.10 Atherosclerotic heart disease of native coronary artery without angina pectoris; Z79.4 Long term (current) use of insulin
CPT/HCPCS: 36415; 80048; 83036; 83735

== ENCOUNTER 2025-04-16 14:44 | Outpatient (CLI) | payer BC, SELFPAY ==
--- OUTSIDE RECORDS SUMMARY | 2025-03-07 05:45 | XMS_ITS ---
Author Organization [facility] Address [address] [place] [address] Care Team Providers Care Blanchard Grinder Operator Name Role Phone Nicole Perez Primary Care Provider NICOLE Perez APRN Unavailable Unavailable Celeste Mcnulty Unavailable [phone] Allergies No Known Allergies REASON FOR VISIT 4 weeks, Unstacker said A1C has increased Medications Medication SIG (Take, Route, Frequency, Duration) Notes Start Date End Date Status Mounjaro 12.5 MG/0.5ML 12.5 mg Subcutaneous once a week; Duration: 28 days 03/07/2025 Active ACCU CHECK TEST STRIPS DIRECTED TID; Duration: 30 DAYS E11.9 *Please review for potential replacement for e-prescription and drug interaction check* 05/02/2020 Active Bisoprolol Fumarate 5 MG 1 tab(s) orally once a day Active Chlorthalidone 25 MG 1 tablet in the morning with food Orally Active Famotidine 40 MG 1 tab(s) orally once a day (at bedtime); Duration: 30 days prn 02/24/2023 Active Methocarbamol 750 MG 1-2 tab(s) orally 3 times a day; Duration: 30 days 05/19/2019 Active Toujeo SoloStar 300 UNIT/ML 30 units subcutaneously once a day Active DULoxetine HCl 30 MG 1 capsule Orally Once a day; Duration: 30 day(s) 02/21/2025 Active Solifenacin Succinate 10 MG 1 tab(s) orally once a day; Duration: 90 days Active BD PEN NEEDLE UF 5 MM 31G 11/11 DIRECTED SUBCUTANEOUSLY ONCE A DAY; Duration: 90 DAYS *Please review for potential replacement for e-prescription and drug interaction check* 05/31/2022 Active Social History Tobacco Use: Social History Observation Description Date Details (start date - stop date) Never Smoker NA - NA Smoking: Question Answer Notes Are you a: nonsmoker Vital Signs Temperature 97.5 degrees Fahrenheit 03/07/20 25 Blood pressure systolic 110 mm Hg 03/07/20 25 Blood pressure diastolic 80 mm Hg 025 Heart Rate 80 /min 03/07/2025 Height 5 ft 6 in in 03/07/2025 Weight 219.8 lbs 03/07/2025 BMI 35.47 kg/m2 03/07/2025 Encounters Encounter Location Date Provider Diagnosis [facility] [address] [place] [address] 03/07/2025 Celeste Mcnulty Long-term insulin us e Z79.4 ; Type 2 diabetes mellitus with peripheral neuropathy E11.42 ; Other chronic pain G89.29 ; Essential hypertension I10 and Fibromyalgia M79.7 Assessments Encounter Date Diagnosis (ICD Code) Assessment Notes Treatment Notes Treatment Clinical Notes Section Notes 03/07/2025 Long-term insulin use (ICD-10 - Z79.4) 03/07/2025 Type 2 diabetes mellitus with peripheral neuropathy (ICD-10 - E11.42) increase Mounjaro as noted and continue lower dose of Toujeo 20-25 units per day. She will start checking her glucose again periodically 03/07/2025 Other chronic pain (ICD-10 - G89.29) improved overall, continue duloxetine 03/07/2025 Essential hypertension (ICD-10 - I10) following with cardiology, improved today 03/07/2025 Fibromyalgia (ICD-10 - M79.7) continue duloxetine Plan Of Treatment Medication Medication Name Sig Start Date Stop Date Notes Mounjaro 12.5 MG/0.5ML 12.5 mg Subcutane ous once a week; Duration: 28 days 03/07/2025 Mounjaro 10 MG/0.5ML 10 mg Subcutaneous once a week Toujeo SoloStar 300 UNIT/ML 30 units sub cutaneously once a day Treatment Notes Assessment Notes Type 2 diabetes mellitus wit h peripheral neuropathy increase Mounjaro as noted and continue lower dose of Toujeo 20-25 units per day. She will start checking her glucose again periodically Next Appt Details Follow Up: 3 Months, Reason: Provider Name:Celeste Kilpatrick ce, 06/17/2025 09:00:00 AM, [address], [address], [place], [address], Progress Notes * Gerhard JEANaDOB:1965 ( 59 yo F)Acc No.[id number]:03/07/2025 Progress Notes Patient: Claudia VILLELA Provider: MAXX Case :1965 A ge:59 Y S ex:Female Date:03/07/2025 Address:[address] [place] [address], [id number] Pcp:Nicole Perez Subjective: * Chief Complaints: * 1 . 4 weeks. 2. Unstacker said A1C has increased. * HPI: g en: 59 yr old female with diabetes presents today to FU regarding DM. Remains on Mounjaro to 10 mg and basal insulin, taking 20-25 units of Toujeo. A1C had been & lt; 7 consistently but increased recently to 7.6. She admits she had stopped monitoring her FSBS because they had been so well controlled. Weight continues to trend downward. Feeling well overall. Hair growth improving. Parasomnia symptoms resolved since stopping xyzal.? She is still following with cardiology, better BP control on diuretic, lowered dose of chlorthalidone. * ROS: R ESPIRATORY: Reviewed, No Symptoms Reported: Y ranjeet. C ARDIOLOGY: no C hest pain. C ONSTITUTIONAL: Reviewed, No Symptoms Reported: Caprice pollack. Mary ASTROENTEROLOGY: Reviewed, No Symptoms Reported: Caprice pollack. * Medical History: D iabetes, Hypertension, Chronic back pain s/p surgery x 2, Obesity, Depression, LANI with CPAP, OAB, Fibromyalgia. * Surgical History: b ack surgery (Dr Arevalo) 08/02/2017, back surgery 2014, hysterectomy , colonoscopy 08/2020, heart cath 01/2023, Left Foot Surgery 03/09/23, 2nd Left Foot Surgery 04/19/24. * Hospitalization/Major Diagno stic Procedure: h ysterectomy . * Family History: F ather: alive, Obesity runs in the family on dads side, kidney disease, diagnosed with Diabetes, Hypertension. M other: , heart related, diagnosed with Hypertension, Heart Disease. Paternal Grand Father: , from natural causes. P aternal Grand Mother: , drowned. M aternal Grand Father: , prostate cancer, diagnosed with Cancer. M aternal Grand Mother: , heart related , diagnosed with Hypertension, Heart Disease. P aternal uncle: , family history unknown . P aternal aunt: , family history unknown . M aternal uncle: , at . M aternal aunt: , multiple health issues. S iblings: alive, heart issues and migraines, diagnosed with Hypertension. C hildren: alive. 3 brother(s) , 2 sister(s) . 1 daughter(s) - healthy. . * Social History: S moking A re you a: n onsmoker. R ecreational drug use: no. Exercise: yes. Home smoke detector use: yes. Caffeine: yes, frequency: coffee 3-4 days weekly. Living Will: No. Alcohol: socially. Sexually active: yes. Travel outside US: no. Occupation: Crisis Line Counselor. * Medications: T aking Chlorthalidone 25 MG Tablet 1 tablet in the morning with food Orally , Taking Bisoprolol Fumarate 5 MG Tablet 1 tab(s) orally once a day , Taking ACCU CHECK TEST STRIPS DIRECTED TID , Notes to Pharmacist: E11.9 *Please review for potential replacement for e-prescription and drug interaction check*, Taking Famotidine 40 MG Tablet 1 tab(s) orally once a day (at bedtime) , Notes to Pharmacist: prn, Taking BD PEN NEEDLE UF 5 MM 31G 11/11 DIRECTED SUBCUTANEOUSLY ONCE A DAY , Notes to Pharmacist: *Please review for potential replacement for e-prescription and drug interaction check*, Taking Methocarbamol 750 MG Tablet 1-2 tab(s) orally 3 times a day , Taking Solifenacin Succinate 10 MG Tablet 1 tab(s) orally once a day , Taking Toujeo SoloStar 300 UNIT/ML Solution Pen-injector 30 units subcutaneously once a day , Taking DULoxetine HCl 30 MG Capsule Delayed Release Particles 1 capsule Orally Once a day , Taking Mounjaro 10 MG/0.5ML Solution Auto-injector 10 mg Subcutaneous once a week , Medication List reviewed and reconciled with the patient * Allergies: N .K.D.A. Objective: * Vitals: N urse: KJ, Pain: 3, Temp: 97.5, RR: 20, HR: 80, BP: 110/80, Ht: 5 ft 6 in, Wt: 219.8, BMI:35.47. * Examination: G eneral Examination: General P leasant and Cooperative, NAD on RA,. Heart: R egular Rate and Rhythm, no murmur, rubs or gallops. Lungs: c lear to auscultation,. Peripheral pulses: n ormal (2+) bilaterally. neck s upple,, no thyromegaly,, no lymphadenopathy,. Psych N ormal Mood/Affect. Assessment: * Assessment: 1. T ype 2 diabetes mellitus with peripheral neuropathy - E11.42 (Primary) 2 .?Long-term insulin use - Z79.4 3 . O ther chronic pain - G89.29 ?4. E ssential hypertension - I10 5 . F ibromyalgia - M79.7 ? Plan: * Treatment: 2. O ther chronic pain Clinical Notes: improved overall, continue duloxetine 3. E ssential hypertension Clinical Notes: following with cardiology, improved today 4. F ibromyalgia Clinical Notes: continue duloxetine * Follow Up: 3 Months * * Sign off status: Completed true * Provider: MAXX Case Date: 0 03/07/2025 Generated for Addison davis/Ruth/Sandra on: 0 04/16/2025 02:46 PM EDT History and Physical Notes * Examination Category Sub-Category Detail Notes Category Not es General Examination Heart: Regular Rate and Rhythm, no murmur, rubs or gallops Lungs: clear to auscultatio n, Peripheral pulses: normal (2+) bilatera lly neck supple,, no thyromeg irene,, no lymphadenopathy, General Pleasant and Coopera tive, NAD on RA, Psych Normal Mood/Affect
--- OUTSIDE RECORDS SUMMARY | 2025-03-12 05:30 | XMS_ITS ---
Author Organization [facility] Address [address] [place], [place] [address] Care Team Providers Care Clinical Data Management Director Name Role Phone Samina Perez Primary Care Provider SAMINA Perez APRN Unavailable Unavailable Celeste Mcnulty Unavailable [phone] REASON FOR VISIT 3 month check up Encounters Encounter Location Date Provider Diagnosis [facility] [address] [place] [address] 03/12/2025 Celeste Mcnulty Plan Of Treatment Next Appt Details Provider Name:Celeste Kilpatrick ce, 06/17/2025 09:00:00 AM, [address], [address], [place], [address], Progress Notes * Gerhard JEANaDOB:1965 ( 59 yo F)Acc No.[id number]:03/12/2025 Progress Notes Patient: Claudia VILLELA Provider: MAXX Case :1965 A ge:59 Y S ex:Female Date:03/12/2025 Address:[address] [id number] Pcp:Samina Perez Subjective: * Chief Complaints: * 1 . 3 month check up. * Medical History: Objective: * Vitals: Assessment: Plan: * Treatment: * * Electronic signature of Saige Mcnulty APRN on 04/16/2025 at 02:46 PM EDT Sign off status: Pending * Provider: MAXX Case Date: 0 03/12/2025 Generated for Addison davis/Ruth/Sandra on: 0 04/16/2025 02:46 PM EDT
--- OUTSIDE RECORDS SUMMARY | 2025-04-08 10:41 | XMS_ITS ---
Author Organization [facility] Address [address] [facility] [address] [place], [place] [address] Care Team Providers Care Curriculum Development Specialist Name Role Phone Samina Perez Primary Care Provider [phone] SAMINA Perez APRN Unavailable Unavailable Celeste Mcnulty Unavailable [phone] Encounters Encounter Location Date Provider Diagnosis [facility] [address] [place], [place] [address] 04/08/2025 Celeste Mcnulty Visit for screening mammogram Z12.31 Assessments Encounter Date Diagnosis (ICD Code) Assessment Notes Treatment Notes Treatment Clinical Notes Section Notes 04/08/2025 Visit for screening mammogram (ICD-10 - Z12.31) Plan Of Treatment Pending Test Test Name Order Date Mammogram : Bilateral 04/08/2025 Next Appt Details Provider Name:Celeste Kilpatrick ce, 06/17/2025 09:00:00 AM, [address] [facility], [address], [place], [address], Progress Notes * Enzo JEAN:1965 ( 59 yo F)Acc No.[id number]:04/08/2025 Patient: Claudia VILLELA :1965 A ge:59 Y S ex:Female [address] [place], [address] Subjective: * Chief Complaints: * * Medical History: * Surgical History: * Hospitalization/Major Diagno stic Procedure: * Medications: Objective: * Vitals: * Physical Examination: Assessment: * Assessment: [facility]. [facility] - Z12.31 Plan: * Treatment: * Procedure Codes: * true * Date: Generated for Addison davis/Ruth/Sandra on: 0 04/16/2025 02:46 PM EDT
--- NOTE | 2025-04-16 14:46 | MM_ITS ---
PROCEDURE INFORMATION: Exam: MG Bilateral Screening 3D Mammography Exam date and time: 04/16/2025 3:00 PM Age: 59 years old Clinical indication: Screening examination TECHNIQUE: Imaging protocol: Bilateral Screening tomosynthesis and 2D mammography including computer-aided detection (CAD) when performed. COMPARISON: 1. MG MM DIG SCREENING MAMM BI W/CAD 03/08/2024 7:50 AM 2. MG MM DIG SCREENING MAMM BI W/CAD 05/06/2023 8:04 AM FINDINGS: MAMMOGRAPHY: Breast composition: There are scattered areas of fibroglandular density. Mass: No suspicious masses. Architectural distortion: Small region of questioned architectural distortion/change in the upper-outer right breast at middle depth. Calcifications: No suspicious calcifications. Asymmetric density: None. Skin thickening: None. Axillary adenopathy: None. IMPRESSION: Small region of questioned architectural distortion/change in the right breast.Recommend right breast diagnostic mammogram including spot compression views of the right breast in the CC and MLO projections, a full 90 degree lateral view, and right breast ultrasound for further evaluation. ASSESSMENT: BI-RADS Category 0: Incomplete- Need Additional Imaging Evaluation.
--- OUTSIDE RECORDS SUMMARY | 2025-04-16 14:46 | XMS_ITS | Clinical Summary ---
Author Organization [facility] Address [address] [place] [address] Care Team Providers Care Stud Setter Name Role Phone Luis Rivera MD Primary Care Provider [phone] Allergies Active Allergy Reactions Criticality Noted Date [...] 07/15/2017 07/15/2015, 0 12/20/2013 [facility]-Cervical Cancer Screening 03/31/2022 [facility]-HPV/Cotest 03/31/2022 03/31/2017, 04/0 04/2013, 10/14/2010, Additional history exists Colonoscopy 01/30/2024 01/29/2014 [facility]-Colorectal Cancer Screening 01/30/2024 [id number] Vaccine ( season) 2024 07/01/2021, 10/07/2020, 09/05/2020 [...] 12:35 PM EDT Positive JADYN (antinuclear antibody) HIGH RISK HUMAN PAPILLOMAVIRUS (HPV) PCR WITH GENOTYPING WITH REFLEX TO PAP Routine 03/31/2017 3:02 PM EDT MAMMOGRAPHY BREAST SCREENING TOMOSYNTHESIS BILATERAL Routine 07/15/2015 [...] 12/02/2023 12:37 PM EDT august R Aziza JOB SITE SUPERINTENDENT LAB BLOOD ORDERABLES Final Result [facility] [address] [place] [address] * Acute Hepatitis Panel (12/02/2023 12:35 PM EDT) Hepatitis B Surf Antigen Negative Negative 12/02/2023 2:57 PM EDT [facility] Hepatitis C Antibody Negative Negative 12/02/2023 2:57 PM EDT [facility] Hepatitis A Antibody IgM Negative Negative 12/02/2023 2:57 PM EDT [facility] Hepatitis B Core Antibody IgM Negative Negative 12/02/2023 2:57 PM EDT [facility] Blood Venous blood specimen / Unknown Venipuncture / Unknown 12/02/2023 12:35 PM EDT 12/02/2023 12:37 PM EDT August Chary Ervin JOB SITE SUPERINTENDENT LAB BLOOD ORDERABLES Final Result Performing Organization Address City/State/[facility] Co de Phone Number [facility] [address] [place] [address] * High Risk Human Papillomavirus (HPV) PCR with Genotyping (03/31/2017 3:02 PM EDT) 03/31/2017 3:02 PM EDT 04/08/2017 12:00 PM EDT Narrative [facility] - 07/04/2021 10:36 AM EDT ACC. NUMBER [id number] SPECIMEN DESCRIPTION: CERVIX SPECIAL REQUESTS: THIN PREP SPECIMEN CULTURE: NEGATIVE for High Risk HPV DNA by DNA probe. Result Interpretation: NEGATIVE = Negative results indicate that the patient's specimen is negative of Viral types from the group: HPV 16, 18,31,33,35,39,45,51,52,56,58,59, and 68. POSITIVE = Positive results indicate that the patient's specimen is positive for one or more viral types from the group: HPV 16,18,31,33,35, 39,45,51,52,56,58,59, and 68. High risk viral types are associated with precancers and cancers, therefore, additional clinical follow-up is indicated. The HPV Hybrid Capture II assay is a signal amplification nucleic acid method for the qualitative detection of thirteen high risk types of papillomavirus (HPV) DNA in cervical specimens. The assay detects the high risk types 16,18,31,33,35,39, 45,51,52,56,58,59, and 68. The assay does not determine the specific HPV type present. This test may be used to evaluate and triage patients with an ASCUS Pap smear result to help determine the need for referral to colposcopy and to provide risk assessment for women with an TU Pap smear result. REPORT STATUS: FINAL [id number] us Madeline Reyes APRN LAB MICROBIOLOGY - GENERAL OR DERABLES Final Result Performing Organization Address City/State/[facility] Co de Phone Number [facility] * Mammography Breast Screening Tomosynthesis Bilateral (07/15/2015 12:00 PM EST) Anatomical Region Laterality Modality Breast Bilateral Mammography Impressions 11/13/2015 10:11 AM EDT BI-RADS Assessment Category 2: Benign finding. RECOMMENDATION: Routine screening mammogram in 1 year. Page 1 of 2 Patient Name:Claudia Jean : 1965 Age: 49 Gender: femaleDate of Service: 07/15/2015 eferring Phlincoln:Rosalia Huitron M.D.Account: [id number] COMMUNICATION: The results and recommendations will be [...] Age: 49 Gender: femaleDate of Service: 07/15/2015 rhonaerrisabel Johnson:Rosalia Huitron M.D.Account: [id number] Rosalia Huitron M.D. [facility] [address], [address] [address] FINAL REPORT PROCEDURE: Tomosynthesis Bilateral Screening - [...] compared to prior imaging studies performed at [facility] on 04/30/2008, 06/27/2008, 12/31/2008, 09/09/2009, 10/23/2010, 10/25/2011, [...] femaleDate of Service:07/15/2015 eferring Phy:Rosalia Huitron M.D.Account: [id number] Rosalia Huitron M.D. [address], [address] [address] FINAL REPORT PROCEDURE: Tomosynthesis Bilateral Screening - [...] been compared to prior imaging studiesperformed at [facility] on 04/30/2008, 06/27/2008, 12/31/2008, 09/09/2009, 10/23/2010, 10/25/2011,12/05/2012 [...] femaleDate of Service:07/15/2015 eferring Phy:Rosalia Huitron M.D.Account: [id number] COMMUNICATION: The results and recommendations will be [...] DARIO CONDON M.D. on 07/15/2015 at 14:43:53 Lylytorical Provider IMG BI PROCEDURES Freda l Result * (ABNORMAL) Hemoglobin A1c (02/21/2015 4:08 PM EDT) Hemoglobin A1c 8.5(H) 4.7 - 6.0 % [facility] Comment: (NOTE) Glycohemoglobin, 0 years and up: 4.7 - 6.0% . HbA1c assay performed by an ion-exchange chromatography method that is certified traceable to the DCCT. 02/21/2015 4:08 PM EDT 02/21/2015 4:13 PM EDT [facility] BLOOD ORDERABLES F inal Result [facility] * COLONOSCOPY (01/29/2014) Anatomical Region Laterality Modality Endoscopy Narrative 01/29/2014 Ordered by an unspecified provider. [facility] Provider GI PROCEDURE ORDERABLE S Final Result * Cytology (12/05/2012 12:00 AM EDT) 12/05/2012 12/06/2012 11: 46 AM EDT Narrative [facility] - 12/07/2012 3:53 PM EDT [facility] MR #: [id number] [facility] CLAUDIA JEANSPICER, [place] [address] 1965 (Age: 47) FB Collect Date: 12/05/2012 00:00 Receipt Date: 12/06/2012 11:46 Page 1 DEPARTMENT OF PATHOLOGY AND LABORATORY MEDICINE CYTOPATHOLOGY REPORT Email: [email or web address] [phone] ATTENDING MD/Practitioner: Anjum Huitron MD Service: [facility] Location: [facility] Reported: 12/07/2012 15:53 Collected: 12/05/2012 00:00 INTERPRETATION A. THIN PREP (CERVICAL/VAGINAL): NEGATIVE FOR INTRAEPITHELIAL LESION OR MALIGNANCY. SATISFACTORY FOR EVALUATION; ENDOCERVICAL/ TRANSFORMATION ZONE COMPONENT PRESENT. Slide scanned and imaged by [employer] ThinPrep Imaging System with manual review of all selected chen. Please correlate with HPV results (see microbiology report, or call [phone]). If HPV positive/cytology negative, both tests should [...] results is suggested (please call Microbiology at [phone] for results). CLINICAL INFORMATION: Menstrual History: Cyclic Date of Last Menstrual Period: {Not Provided} Other Clinical Conditions: HPV testing requested. SPECIMEN DESCRIPTION: A: THIN PREP (CERVICAL/VAGINAL) THIN PREP PROCESS CELLULAR ENHANCEMENT ICD: F: A; RT IMAGE 09982 SNOMED CODES: A; N2M985 [id number] In cases where a pathologist has signed out the report, the service has been rendered in part by a resident. The signing pathologist has performed and is responsible for the reported pathologic evaluation. us Rosalia Huitron MD LAB PATHOLOGY ORDERABLES Final R esult [facility] from Last 3 Months or Most Recently Relevant to Health Maintenance Insurance Care Teams Stud Setter Relationship Specialty Start Date End Date Luis Rivera MD [address] [facility] [place] [address] PCP - General 01/09/21
--- OUTSIDE RECORDS SUMMARY | 2025-04-16 14:46 | XMS_ITS | Patient Health Record ---
Author Organization [facility] Address [address] [place] [address] Care Team Providers Care Band Aid Machine Operator Name Role Phone Samina Perez Primary Care Provider [phone] SAMINA Perez APRN Unavailable Unavailable Celeste Mcnulty Unavailable [phone] Migration, Provider Unavailable Unavailable Allergies No Known Allergies Results Component Value Reference Range Notes Microalbumin (In-House) Reviewed date:10/15/2024 09:04:20 AM Interpretation:Abnormal Performing Lab: Notes/Report: Abnormal ALB 150mg/L CRE 300mg/dL A:C 30-300mg/g Reason For Referral No Information Medications Medication SIG (Take, Route, Frequency, Duration) Notes Start Date End Date Status Methocarbamol 750 MG 1-2 tab(s) orally 3 times a day; Duration: 30 days 05/19/2019 Active Toujeo SoloStar 300 UNIT/ML 30 units subcutaneously once a day Active DULoxetine HCl 30 MG 1 capsule Orally Once a day; Duration: 30 day(s) 02/21/2025 Active Mounjaro 12.5 MG/0.5ML 12.5 mg Subcutaneous once a week; Duration: 28 days 03/07/2025 Active Solifenacin Succinate 10 MG 1 tab(s) orally once a day; Duration: 90 days Active ACCU CHECK TEST STRIPS DIRECTED TID; Duration: 30 DAYS E11.9 *Please review for potential replacement for e-prescription and drug interaction check* 05/02/2020 Active Bisoprolol Fumarate 5 MG 1 tab(s) orally once a day Active Chlorthalidone 25 MG 1 tablet in the morning with food Orally Active BD PEN NEEDLE UF 5 MM 31G 11/11 DIRECTED SUBCUTANEOUSLY ONCE A DAY; Duration: 90 DAYS *Please review for potential replacement for e-prescription and drug interaction check* 05/31/2022 Active Famotidine 40 MG 1 tab(s) orally once a day (at bedtime); Duration: 30 days prn 02/24/2023 Active Immunizations Vaccine Route Administration Date Status Comme nts Flublok IM Intramuscular 05/31/2022 Administered Social History Tobacco Use: Social History Observation Description Date Details (start date - stop date) Never Smoker NA - NA Smoking: Question Answer Notes Are you a: nonsmoker Problems Problem Type SNOMED Code ICD Code Onset Dates Problem Status W/U Status Risk Notes Problem Chronic pain (75390804) Other chronic pain (G89.29) Active confirmed Problem Fibromyalgia (235707329) Fibromyalgia (M79.7) Active confirmed Problem Obese class I (finding) (203559416316437) Obesity (BMI 30.0-34.9) (E66.9) Active confirmed Problem Arthritis (1127113) Arthritis (M19.90) Active confirmed Problem Essential hypertension (39316681) Essential hypertension (I10) Active confirmed Problem Constipation by delayed colonic transit (32779553) Constipation by delayed colonic transit (K59.01) Active confirmed Problem Idiopathic peripheral neuropathy (50747304) Idiopathic peripheral neuropathy (G60.9) Active confirmed Problem Mammography abnormal (038457103) Abnormal mammogram of left breast (R92.8) Active confirmed Problem BMI 30+ - obesity (592048860) BMI 32.0-32.9,adult (Z68.32) Active confirmed Problem Obese class II (848033550512563) BMI 37.0-37.9, adult (Z68.37) Active confirmed Problem Obstructive sleep apnea syndrome (32739134) LANI (obstructive sleep apnea) (G47.33) Active confirmed Problem Overactive urinary bladder (disorder) (468016844) OAB (overactive bladder) (N32.81) Active confirmed Problem Reactive depression (85165580) Reactive depression (F32.9) Active confirmed Problem Sciatica (18772239) Acute right-sided low back pain with right-sided sciatica (M54.41) Active confirmed Problem Type II diabetes mellitus without complication (116705503) Type 2 diabetes mellitus without complication, without long-term current use of insulin (E11.9) Active confirmed Problem Long-term current use of insulin (945457834) Long-term insulin use (Z79.4) Active confirmed Problem Polyneuropathy due to type 2 diabetes mellitus (545821449) Type 2 diabetes mellitus with peripheral neuropathy (E11.42) Active confirmed Problem Atherosclerotic heart disease of [place] coronary artery without angina pectoris (917841199286873) Coronary artery disease involving [place] heart without angina pectoris, unspecified vessel or lesion type (I25.10) Active confirmed Problem Cardiovascular stress test abnormal (371148397) Abnormal stress test (R94.39) Active confirmed Problem Indigestion (058483163) Indigestion (K30) Active confirmed Problem Diastolic dysfunction (0599366) Diastolic dysfunction (I51.89) Active confirmed Problem Parasomnia (00187980) Parasomnia, unspecified type (G47.50) Active confirmed Vital Signs Heart Rate 80 /min 03/07/2025 Temperature 97.5 degrees Fahrenheit 03/07/2025 Blood pressure diastolic 80 mm Hg 03/07/2025 Height 5 ft 6 in in 03/07/2025 Blood pressure systolic 110 mm Hg 03/07/2025 Weight 219.8 lbs 03/07/2025 BMI 35.47 kg/m2 03/07/2025 Encounters Encounter Location Date Provider Diagnosis [facility] [address] [facility] [address] [place], [place] [address] 12/01/2024 Provider Migration Type 2 diabetes mellitus with peripheral neuropathy E11.42 [facility] [address] [facility] [address] [place], [place] [address] 08/09/2024 Celeste Pricila Long-term insulin us e Z79.4 ; Other chronic pain G89.29 ; Type 2 diabetes mellitus with peripheral neuropathy E11.42 ; Essential hypertension I10 and Fibromyalgia M79.7 [facility] [address] [facility] [address] [place], [place] [address] 10/15/2024 Celeste Pricila Long-term insulin us e Z79.4 ; Type 2 diabetes mellitus with peripheral neuropathy E11.42 ; Other chronic pain G89.29 ; Essential hypertension I10 ; Fibromyalgia M79.7 ; Thinning hair L65.9 ; Indigestion K30 and OAB (overactive bladder) N32.81 [facility] [address] [place] [address] 12/10/2024 Celeste Pricila Long-term insulin us e Z79.4 ; Type 2 diabetes mellitus with peripheral neuropathy E11.42 ; Other chronic pain G89.29 ; Essential hypertension I10 ; Fibromyalgia M79.7 and OAB (overactive bladder) N32.81 [facility] [address] [place] [address] 02/07/2025 Celeste Pricila Vivid dream R68.89 and Parasomnia, unspecified type G47.50 [facility] [address] [place] [address] [facility] Z79.4 ; Type 2 diabetes mellitus with peripheral neuropathy E11.42 ; Other chronic pain G89.29 ; Essential hypertension I10 and Fibromyalgia M79.7 [facility] [address] [place] [address] 05/24/2024 Celeste Pricila [facility] [address] [place] [address] 06/25/2024 Celeste Pricila [facility] [address] [address] 08/01/2024 Celeste Pricila Type 2 diabetes mellitus with peripheral neuropathy E11.42 [facility] [address] [place] [address] 10/11/2024 Celeste Pricila [facility] [address] [place] [address] 12/10/2024 Celeste Pricila Other chronic pain G89.29 [facility] [address] [place] [address] 02/21/2025 Samina Mattiees [facility] [address] [place] [address] 02/21/2025 [facility] [address] [place], [place] [address] 03/09/2025 [facility] [address] [place], [place] [address] 04/08/2025 Celeste Mcnulty Visit for screening mammogram Z12.31 Assessments Encounter Date Diagnosis (ICD Code) Assessment Notes Treatment Notes Treatment Clinical Notes Section Notes 08/01/2024 Type 2 diabetes mellitus with peripheral neuropathy (ICD-10 - E11.42) 08/09/2024 Long-term insulin use (ICD-10 - Z79.4) 10/15/2024 Long-term insulin use (ICD-10 - Z79.4) 12/01/2024 Type 2 diabetes mellitus with peripheral neuropathy (ICD-10 - E11.42) 12/10/2024 Other chronic pain (ICD-10 - G89.29) 02/07/2025 Vivid dream (ICD-10 - R68.89) 02/07/2025 Parasomnia, unspecified type (ICD-10 - G47.50) recommend wean off of duloxetine with first decreasing to 30mg once a day in the mornings for 2 weeks and then stop morning dose as well stop levocetirizine FU in 4 weeks and consider referral to sleep medicine clinic if no improvement avoid stimulants and stimulating TV prior to bedtime 12/10/2024 Long-term insulin use (ICD-10 - Z79.4) 03/07/2025 Long-term insulin use (ICD-10 - Z79.4) 04/08/2025 Visit for screening mammogram (ICD-10 - Z12.31) 03/07/2025 Type 2 diabetes mellitus with peripheral neuropathy (ICD-10 - E11.42) increase Mounjaro as noted and continue lower dose of Toujeo 20-25 units per day. She will start checking her glucose again periodically 12/10/2024 Type 2 diabetes mellitus with peripheral neuropathy (ICD-10 - E11.42) increase Mounjaro as noted and decrease basal insulin to 24 units and further if needed to prevent hypoglycemia 03/07/2025 Other chronic pain (ICD-10 - G89.29) improved overall, continue duloxetine 12/10/2024 Other chronic pain (ICD-10 - G89.29) improved overall, continue duloxetine 10/15/2024 Type 2 diabetes mellitus with peripheral neuropathy (ICD-10 - E11.42) increase Mounjaro as noted and decrease basal insulin to 30 units and further if needed to prevent hypoglycemia 08/09/2024 Type 2 diabetes mellitus with peripheral neuropathy (ICD-10 - E11.42) Doing well with transition from Soliqua...increa se Mounjaro as noted and decrease basal insulin. She may decrease basal insulin as needed to prevent hypoglycemia 10/15/2024 Other chronic pain (ICD-10 - G89.29) improved overall, continue duloxetine 08/09/2024 Other chronic pain (ICD-10 - G89.29) improved overall, continue duloxetine 10/15/2024 Essential hypertension (ICD-10 - I10) following with cardiology, improved today 08/09/2024 Essential hypertension (ICD-10 - I10) following with cardiology 12/10/2024 Essential hypertension (ICD-10 - I10) following with cardiology, improved today 03/07/2025 Essential hypertension (ICD-10 - I10) following with cardiology, improved today 12/10/2024 Fibromyalgia (ICD-10 - M79.7) continue duloxetine 03/07/2025 Fibromyalgia (ICD-10 - M79.7) continue duloxetine 10/15/2024 Fibromyalgia (ICD-10 - M79.7) continue duloxetine 08/09/2024 Fibromyalgia (ICD-10 - M79.7) 10/15/2024 Thinning hair (ICD-10 - L65.9) recommend consult with Dermatology 10/15/2024 Indigestion (ICD-10 - K30) rec regular use of famotidine 10/15/2024 OAB (overactive bladder) (ICD-10 - N32.81) vesicare is already higher dose 12/10/2024 OAB (overactive bladder) (ICD-10 - N32.81) vesicare is already higher dose, due for [employer] exam and encouraged to discuss with them Plan Of Treatment Pending Test Test Name Order Date Ultrasound : Breast, Left 11/02/2021 Physical Therapy 05/25/2019 Physical Therapy 07/24/2019 Physical Therapy 09/04/2019 Mammogram : Bilateral 04/08/2025 M-Miscellaneous Test 08/04/2018 M-Comprehensive Metabolic Panel 08/31/19 M-Hemoglobin A1C 08/31/2021 M-Free T4 (Free Thyroxine) 11/18/2023 M-Free T4 (Free Thyroxine) 02/02/2024 M-Thyroid Stimulating Hormone 02/02/2024 CBC With Platelet And Differential 02/16 Comprehensive Metabolic Panel (CMP) 04/30 Comprehensive Metabolic Panel (CMP) 01/28 Hemoglobin A1C 02/16/2022 Hemoglobin A1C 05/24/2022 Lipid Panel 05/24/2022 TSH reflex to FT4 02/16/2022 Microalbumin/Creatinine, Random Urine Sa mple 05/24/2022 Next Appt Details Provider Name:Celeste Kilpatrick ce, 06/17/2025 09:00:00 AM, [address], [place], [address], Insurance Providers Payer Name Payer Address Payer Phone Subscriber Number Group Number Insured Name Patient Relationship to Insured Coverage Start Date Coverage End Date [facility] [address] [place] [address] [id number] Claudia Jean Self - patient is the insured Medical (General) History Medical History History ICD Code diabetes hypertension Chronic back pain s/p surgery x 2 Obesity Depression LANI with CPAP OAB Fibromyalgia Surgical History Surgery Date(Month/Year) back surgery (Dr Arevalo) 08/02/2017 back surgery 2015 hysterectomy colonoscopy 08/2020 heart cath 01/2023 Left Foot Surgery 03/09/23 2nd Left Foot Surgery 04/19/24 Hospitalization History Reason Date(Month/Year) hysterectomy
--- OUTSIDE RECORDS SUMMARY | 2025-04-16 14:47 | XMS_ITS | Encounter Summary ---
Author Organization [facility] Address [address] [place] [address] Care Team Providers Care Seconds Handler Name Role Phone Luis Rivera MD Primary Care Provider [phone] Reason for Referral * Consultation (Routine) - Closed Specialty Diagnoses / Procedures Referred By Adela dawn Referred To Contact Rheumatology Diagnoses Positive JADYN (antinuclear antibody) Celeste Mcnulty, CLIENT SOLUTIONS DIRECTOR [address] [place] [address] Phone: tel: fax: Referral ID Status Reason Start Date Expiration Date V isits Requested Visits Authorized [id number] Closed Specialty Services Required 11/23/2023 05/24/2025 1 1 Encounter Details Date Type Department Care Team (Late st Contact Info) Description 11/23/2023 Community [facility] [address] [place] [address] Celeste Mcnulty, CLIENT SOLUTIONS DIRECTOR [address] [place] [address] Positive JADYN (antinuclear antibody) (Primary Dx) Social [...] findings documented in this encounter Care Teams Seconds Handler Relationship Specialty Start Date End Date Luis Rivera MD [address] [place] [address] PCP - General 01/09/21 documented as of this encounter
== END 2025-04-16 23:59 | disposition home or self-care (01) ==
LOC: RAD 14:45
PROVIDERS: PCP Nurse Practitioner Family; Visit Provider Nurse Practitioner Family
DX: Z12.31 Encounter for screening mammogram for malignant neoplasm of breast (principal); R92.323 Mammographic fibroglandular density, bilateral breasts
CPT/HCPCS: 77063; 77067

== ENCOUNTER 2025-05-14 07:52 | Outpatient (CLI) | payer BC, SELFPAY ==
--- OUTSIDE RECORDS SUMMARY | 2025-03-12 05:30 | XMS_ITS ---
Author Organization [facility] Address [address] [place], [place] [address] Care Team Providers Care Washing Machine Repairer Name Role Phone Samina Perez Primary Care Provider SAMINA Perez APRN Unavailable Unavailable Celeste Mcnulty Unavailable [phone] REASON FOR VISIT 3 month check up Encounters Encounter Location Date Provider Diagnosis [facility] [address] [place] [address] 03/12/2025 Celeste Mcnulty Plan Of Treatment Next Appt Details Provider Name:Celeste Kilpatrick ce, 06/17/2025 09:00:00 AM, [address], [address], [place], [address], Progress Notes * Gerhard JEANaDOB:1965 ( 59 yo F)Acc No.[id number]:03/12/2025 Progress Notes Patient: Claudia VILLELA Provider: MAXX Case :1965 A ge:59 Y S ex:Female Date:03/12/2025 Address:[address] [place] [id number] Pcp:Samina Perez Subjective: * Chief Complaints: * 1 . 3 month check up. * Medical History: Objective: * Vitals: Assessment: Plan: * Treatment: * * Electronic signature of Saige Mcnulty APRN on 05/14/2025 at 07:55 AM EDT Sign off status: Pending * Provider: MAXX Case Date: 0 03/12/2025 Generated for Addison davis/Ruth/Sandra on: 0 05/14/2025 07:55 AM EDT
--- OUTSIDE RECORDS SUMMARY | 2025-04-08 10:41 | XMS_ITS ---
Author Organization [facility] Address [address] [facility] [address] [place] [address] Care Team Providers Care Pharm Spec Name Role Phone Samina Perez Primary Care Provider [phone] SAMINA Perez APRN Unavailable Unavailable Celeste Mcnulty Unavailable [phone] Results Component Value Reference Range Notes Mammogram : Bilateral Reviewed date:05/01/2025 11:45:57 AM Interpretation: Performing Lab: Notes/Report: Encounters Encounter Location Date Provider Diagnosis [facility] [address] [facility] [address] [place], [place] [address] 04/08/2025 Celeste Mcnulty Visit for screening mammogram Z12.31 Assessments Encounter Date Diagnosis (ICD Code) Assessment Notes Treatment Notes Treatment Clinical Notes Section Notes 04/08/2025 Visit for screening mammogram (ICD-10 - Z12.31) Plan Of Treatment Next Appt Details Provider Name:Celeste Kilpatrick ce, 06/17/2025 09:00:00 AM, [address] [facility], [address], [place], [place], [address], Progress Notes * Marguerite JEANB:1965 ( 59 yo F)Acc No.[id number]:04/08/2025 Patient: Claudia VILLELA :1965 A ge:59 Y S ex:Female [place], [address] Subjective: * Chief Complaints: * * Medical History: * Surgical History: * Hospitalization/Major Diagno stic Procedure: * Medications: Objective: * Vitals: * Physical Examination: Assessment: * Assessment: 1. V isit for screening mammogram - Z12.31 Plan: * Treatment: * Procedure Codes: * true * Date: Generated for Addison davis/Ruth/Sandra on: 0 05/14/2025 07:55 AM EDT
--- OUTSIDE RECORDS SUMMARY | 2025-05-01 07:37 | XMS_ITS ---
Author Organization [facility] Address [address] [place], [place] [address] Care Team Providers Care Magisterial District Judge Name Role Phone Samina Perez Primary Care Provider [phone] SAMINA Perez APRN Unavailable Unavailable Celeste Mcnulty Unavailable [phone] Encounters Encounter Location Date Provider Diagnosis [facility] [address] [place], [place] [address] 05/01/2025 Celeste Mcnulty Breast mass N63.0 Assessments Encounter Date Diagnosis (ICD Code) Assessment Notes Treatment Notes Treatment Clinical Notes Section Notes 05/01/2025 Breast mass (ICD-10 - N63.0) Plan Of Treatment Pending Test Test Name Order Date Ultrasound : Breast, Right 05/01/2025 Mammogram : Right Breast 05/01/2025 Next Appt Details Provider Name:Celeste Kilpatrick ce, 06/17/2025 09:00:00 AM, [address], [place], [address], Progress Notes * Enzo JEAN:1965 ( 59 yo F)Acc No.[id number]:05/01/2025 Patient: Claudia VILLELA :1965 A ge:59 Y S ex:Female [address] [place] [address] Subjective: * Chief Complaints: * * Medical History: * Surgical History: * Hospitalization/Major Diagno stic Procedure: * Medications: Objective: * Vitals: * Physical Examination: Assessment: * Assessment: 1. B reast mass - N63.0 Plan: * Treatment: * ?Imaging: Mammogram : Right Breast* Diagnostic No Auth RequiredP Marlin nolan 05/01/2025 11:45:23 AM EDT > * * Procedure Codes: * true * Date: Generated for Addison davis/Ruth/eTransmitting on: 0 05/14/2025 07:55 AM EDT
--- NOTE | 2025-05-14 07:55 | US_ITS ---
PROCEDURE INFORMATION: Exam: US Right Breast, Complete MG Right Diagnostic Breast Tomosynthesis Exam date and time: 05/14/2025 8:10 AM Age: 59 years old Clinical indication: Recall on the basis of screening mammogram 04/16/2025 for further evaluation of small region of questioned architectural distortion/change in the upper-outer right breast at middle depth. Technologist indicates patient has pain throughout the right breast. TECHNIQUE: Imaging protocol: Complete ultrasound of all four quadrants of the right breast and the retroareolar regions, including ultrasound of the axilla when performed. Right Diagnostic tomosynthesis and 2D mammography including computer-aided detection (CAD) when performed. Unilateral or bilateral exam. COMPARISON: MG MM DIG SCREENING MAMM BI W/CAD 04/16/2025 3:00 PM MG MM DIG MAMM BI DX W/CAD 11/03/2021 MG MM DIG MAMM BI DX W/CAD 05/20/2021 FINDINGS: MAMMOGRAPHY: Breast composition: There are scattered areas of fibroglandular density. Density based on the most recent screening mammogram report. Breast mammogram findings: Persistent architectural distortion in the right upper outer quadrant posteriorly, similar to 2020 and 2021 in this patient status post reduction mammoplasty. ULTRASOUND: Breast ultrasound findings: Sonographic images of the right breast including the retroareolar region, all 4 quadrants and the axilla. At 12 o'clock 4 cm from the nipple, shadowing measuring about 1.5 x 1.0 cm, more likely related to postreduction scarring, does not correlate to the more posterior mammographic recalled finding. At 10 o'clock 15 cm from the nipple, oval hypoechoic avascular mass measuring 0.6 x 0.6 x 0.3 cm, and oval, questionably slightly lobulated, almost anechoic mass measuring 0.4 x 0.5 x 0.3 cm with related ductal dilatation. Retroareolar 12 o'clock, anechoic avascular dilated duct or cyst measuring 0.5 x 0.3 x 0.5 cm. IMPRESSION: Persistent architectural distortion in the right upper outer quadrant appears similar to 2020 and 2021 in this patient with reduction mammoplasty. Probably benign right sonographic findings. The findings at 10 o'clock more likely reflects cystic changes and may be related to patient's history of pain, which can be correlated clinically. Suggest six-month follow-up right diagnostic mammogram and right sonogram unless otherwise clinically indicated. Further evaluation of a painful abnormality should be based on clinical grounds regardless of radiographic findings or lack thereof. ASSESSMENT: BI-RADS Category 3: Probably benign.
--- OUTSIDE RECORDS SUMMARY | 2025-05-14 07:55 | XMS_ITS | Clinical Summary ---
Author Organization [facility] Address [address] [place] [address] Care Team Providers Care Ferris Wheel Operator Name Role Phone Luis Rivera MD Primary Care Provider Allergies Active Allergy Reactions Criticality Noted Date [...] Colonoscopy 01/30/2024 01/29/2014 [facility]-Colorectal Cancer Screening 01/30/2024 [facility]-Depression Screening 12/27/2024 12/28/2023 [id number] Vaccine ( season) 2025 07/01/2021, 10/07/2020, 09/05/2020 [facility]-Influenza Vaccine (#1) 04/29/202505/31, 06/02/2020, 06/16/2015, Additional [...] 12/02/2023 12:37 PM EDT august R Aziza BANK SECRECY ACT OFFICER LAB BLOOD ORDERABLES Final Result [facility] [address] [place] [address] * Acute Hepatitis Panel (12/02/2023 12:35 PM EDT) Hepatitis B Surf Antigen Negative Negative 12/02/2023 2:[address] [facility] Hepatitis C Antibody Negative Negative 12/02/2023 2:[address] [facility] Hepatitis A Antibody IgM Negative Negative 12/02/2023 2:[address] [facility] Hepatitis B Core Antibody IgM Negative Negative 12/02/2023 2:[address] [facility] Blood Venous blood specimen / Unknown Venipuncture / Unknown 12/02/2023 12:35 PM EDT 12/02/2023 12:37 PM EDT August Chary Ervin BANK SECRECY ACT OFFICER LAB BLOOD ORDERABLES Final Result Performing Organization Address City/State/[facility] Co de Phone Number [facility] [address] [place] [address] * High Risk Human Papillomavirus (HPV) PCR with Genotyping (03/31/2017 3:02 PM EDT) 03/31/2017 3:02 PM EDT 04/08/2017 12:00 PM EDT Narrative [facility] - 07/04/2021 10:36 AM EDT ACC. NUMBER [id number] SPECIMEN DESCRIPTION: CERVIX SPECIAL REQUESTS: THIN PREP [...] TU Pap smear result. REPORT STATUS: FINAL [id number] us Madeline Reyes APRN LAB MICROBIOLOGY - GENERAL OR DERABLES Final Result Performing Organization Address City/State/[facility] Co de Phone Number [facility] * Mammography Breast Screening Tomosynthesis Bilateral (07/15/2015 12:00 PM EST) Anatomical Region Laterality Modality Breast Bilateral Mammography Impressions 11/13/2015 10:11 AM EDT BI-RADS Assessment Category 2: Benign finding. RECOMMENDATION: Routine screening mammogram in 1 year. Page 1 of 2 Patient Name:Claudia Jean : 1965 Age: 49 Gender: femaleDate of Service: 07/15/2015 eferring Phlincoln:Rosalia Huitron M.D.Account: [id number] COMMUNICATION: The results and recommendations will be [...] of Service: 07/15/2015 rhonaerrisabel Johnson:Rosalia Huitron M.D.Account: [id number] Rosalia Huitron M.D. [facility] At [address], [address] [address] FINAL REPORT PROCEDURE: Tomosynthesis Bilateral Screening - [...] prior imaging studies performed at [facility] on 04/30/2008, 06/27/2008, 12/31/2008, 09/09/2009, 10/23/2010, 10/25/2011, [...] femaleDate of Service:07/15/2015 eferring Phy:Rosalia Huitron M.D.Account: [id number] Rosalia Huitron M.D. [address], [address] [address] FINAL REPORT PROCEDURE: Tomosynthesis Bilateral Screening - [...] to prior imaging studiesperformed at [facility] on 04/30/2008, 06/27/2008, 12/31/2008, 09/09/2009, 10/23/2010, 10/25/2011,12/05/2012 [...] femaleDate of Service:07/15/2015 eferring Phy:Rosalia Huitron M.D.Account: [id number] COMMUNICATION: The results and recommendations will be [...] DARIO CONDON M.D. on 07/15/2015 at 14:43:53 [facility] Provider IMG BI PROCEDURES Final Resu lt * (ABNORMAL) Hemoglobin A1c (02/21/2015 4:08 PM EDT) Hemoglobin A1c 8.5(H) 4.7 - 6.0 % [facility] Comment: (NOTE) Glycohemoglobin, 0 years and up: 4.7 - 6.0% . HbA1c assay performed by an ion-exchange chromatography method that is certified traceable to the DCCT. 02/21/2015 4:08 PM EDT 02/21/2015 4:13 PM EDT [facility] Provider LAB BLOOD ORDERABLES Final R esult [facility] * COLONOSCOPY (01/29/2014) Anatomical Region Laterality Modality Endoscopy Narrative 01/29/2014 Ordered by an unspecified provider. Historical Provider GI PROCEDURE ORDERABLES Freda l Result * Cytology (12/05/2012 12:00 AM EDT) 12/05/2012 12/06/2012 11: 46 AM EDT Narrative [facility] - 12/07/2012 3:53 PM EDT [facility] MR #: [id number] [facility] [place] [id number] 1965 (Age: 47) FB Collect Date: 12/05/2012 00:00 Receipt Date: 12/06/2012 11:46 Page 1 DEPARTMENT OF PATHOLOGY AND LABORATORY MEDICINE CYTOPATHOLOGY REPORT Email: [email or web address] ATTENDING MD/Practitioner: Anjum Huitron MD Service: [facility] Location: [facility] Reported: 12/07/2012 15:53 Collected: 12/05/2012 00:00 INTERPRETATION A. THIN PREP (CERVICAL/VAGINAL): NEGATIVE FOR INTRAEPITHELIAL LESION OR MALIGNANCY. SATISFACTORY FOR EVALUATION; ENDOCERVICAL/ TRANSFORMATION ZONE COMPONENT PRESENT. Slide scanned and imaged by [employer] ThinPrep Imaging System with manual review of all selected chen. Please correlate with HPV results (see microbiology report, or call [phone]). If HPV positive/cytology negative, both tests should [...] results is suggested (please call Microbiology at [phone] for results). CLINICAL INFORMATION: Menstrual History: Cyclic Date of Last Menstrual Period: {Not Provided} Other Clinical Conditions: HPV testing requested. SPECIMEN DESCRIPTION: A: THIN PREP (CERVICAL/VAGINAL) THIN PREP PROCESS CELLULAR ENHANCEMENT ICD: F: A; RT IMAGE 52417 SNOMED CODES: A; [id number] [id number] M-[id number] In cases where a pathologist has signed out the report, the service has been rendered in part by a resident. The signing pathologist has performed and is responsible for the reported pathologic evaluation. Rosalia Huitron MD LAB PATHOLOGY ORDERABLES Final R esult [facility] from Last 3 Months or Most Recently Relevant to Health Maintenance Insurance Care Teams Ferris Wheel Operator Relationship Specialty Start Date End Date Luis Rivera MD [address] [place] [address] [place] [address] PCP - General 01/09/21
--- OUTSIDE RECORDS SUMMARY | 2025-05-14 07:55 | XMS_ITS | Encounter Summary ---
Author Organization [facility] Address [address] [place] [address] Care Team Providers Care Mechanical Cad Drafter Name Role Phone Luis Rivera MD Primary Care Provider [phone] Reason for Referral * Consultation (Routine) - Closed Specialty Diagnoses / Procedures Referred By Adela dawn Referred To Contact Rheumatology Diagnoses Positive JADYN (antinuclear antibody) Celeste Mcnulty, LEAD JAVA PROGRAMMER [address] [place] [address] Phone: tel: fax: Referral ID Status Reason Start Date Expiration Date V isits Requested Visits Authorized [id number] Closed Specialty Services Required 11/23/2023 05/24/2025 1 1 Encounter Details Date Type Department Care Team (Late st Contact Info) Description 11/23/2023 Community [facility] [address] [place] [address] Celeste Mcnulty, LEAD JAVA PROGRAMMER [address] [place] [address] Positive JADYN (antinuclear antibody) (Primary Dx) Social [...] findings documented in this encounter Care Teams Mechanical Cad Drafter Relationship Specialty Start Date End Date Luis Rivera MD [address] [facility] [place] [address] PCP - General 01/09/21 documented as of this encounter
--- OUTSIDE RECORDS SUMMARY | 2025-05-14 07:55 | XMS_ITS | Patient Health Record ---
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 Phone Samina Perez Primary Care Provider [phone] SAMINA Perez APRN Unavailable Unavailable Celeste Mcnulty Unavailable [phone] Migration, Provider Unavailable Unavailable Allergies No Known Allergies Results Component Value Reference Range Notes Microalbumin (In-House) Reviewed date:10/15/2024 09:04:20 AM Interpretation:Abnormal Performing Lab: Notes/Report: Abnormal ALB 150mg/L CRE 300mg/dL A:C 30-300mg/g Mammogram : Bilateral Reviewed date:05/01/2025 11:45:57 AM Interpretation: Performing Lab: Notes/Report: Reason For Referral No Information Medications Medication [...] W/U Status Risk Notes Problem Chronic pain (18772326) Other chronic pain (G89.29) Active confirmed Problem Fibromyalgia (353808647) Fibromyalgia (M79.7) Active confirmed Problem Obese class I (finding) (593797740287466) Obesity (BMI 30.0-34.9) (E66.9) Active confirmed Problem Arthritis (6121468) Arthritis (M19.90) Active confirmed Problem Essential hypertension (40161538) Essential hypertension (I10) Active confirmed Problem Constipation by delayed colonic transit (79108790) Constipation by delayed colonic transit (K59.01) Active confirmed Problem Idiopathic peripheral neuropathy (71687698) Idiopathic peripheral neuropathy (G60.9) Active confirmed Problem Mammography abnormal (193622960) Abnormal mammogram of left breast (R92.8) Active confirmed Problem BMI 30+ - obesity (452160011) BMI 32.0-32.9,adult (Z68.32) Active confirmed Problem Obese class II (616566387484881) BMI 37.0-37.9, adult (Z68.37) Active confirmed Problem Obstructive sleep apnea syndrome (39495483) LANI (obstructive sleep apnea) (G47.33) Active confirmed Problem Overactive urinary bladder (disorder) (722426456) OAB (overactive bladder) (N32.81) Active confirmed Problem Reactive depression (19342478) Reactive depression (F32.9) Active confirmed Problem Sciatica (22883397) Acute right-sided low back pain with right-sided sciatica (M54.41) Active confirmed Problem Type II diabetes mellitus without complication (420679869) Type 2 diabetes mellitus without complication, without long-term current use of insulin (E11.9) Active confirmed Problem Long-term current use of insulin (781816865) Long-term insulin use (Z79.4) Active confirmed Problem Polyneuropathy due to type 2 diabetes mellitus (442850831) Type 2 diabetes mellitus with peripheral neuropathy (E11.42) Active confirmed Problem Atherosclerotic heart disease of [place] coronary artery without angina pectoris (047820349473108) Coronary artery disease involving [place] heart without angina pectoris, unspecified vessel or lesion type (I25.10) Active confirmed Problem Cardiovascular stress test abnormal (639732456) Abnormal stress test (R94.39) Active confirmed Problem Indigestion (581778571) Indigestion (K30) Active confirmed Problem Diastolic dysfunction (2676008) Diastolic dysfunction (I51.89) Active confirmed Problem Parasomnia (50745191) Parasomnia, unspecified type (G47.50) Active confirmed Vital Signs Heart Rate 80 /min 03/07/2025 Temperature 97.5 degrees Fahrenheit 03/07/2025 Blood pressure diastolic 80 mm Hg 03/07/2025 Height 5 ft 6 in in 03/07/2025 Blood pressure systolic 110 mm Hg 03/07/2025 Weight 219.8 lbs 03/07/2025 BMI 35.47 kg/m2 03/07/2025 Encounters Encounter Location Date Provider Diagnosis [facility] [address] [place] [address] 12/01/2024 Provider Migration Type 2 diabetes mellitus with peripheral neuropathy E11.42 [facility] [address] [place], [place] [address] 08/09/2024 Celeste Pricila Long-term insulin us e Z79.4 ; Other chronic pain G89.29 ; Type 2 diabetes mellitus with peripheral neuropathy E11.42 ; Essential hypertension I10 and Fibromyalgia M79.7 [facility] [address] [facility] [address] [place] [address] 10/15/2024 Celeste Pricila Long-term insulin us e Z79.4 ; Type 2 diabetes mellitus with peripheral neuropathy E11.42 ; Other chronic pain G89.29 ; Essential hypertension I10 ; Fibromyalgia M79.7 ; Thinning hair L65.9 ; Indigestion K30 and OAB (overactive bladder) N32.81 [facility] [address] [place] [address] 12/10/2024 Celeste Mcnulty Long-term insulin us e Z79.4 ; Type 2 diabetes mellitus with peripheral neuropathy E11.42 ; Other chronic pain G89.29 ; Essential hypertension I10 ; Fibromyalgia M79.7 and OAB (overactive bladder) N32.81 [facility] [address] [place] [address] 02/07/2025 Celeste Mcnulty Vivid dream R68.89 and Parasomnia, unspecified type G47.50 [facility] [address] [place] [address] 03/07/2025 Celeste Mcnulty Long-term insulin us e Z79.4 ; Type 2 diabetes mellitus with peripheral neuropathy E11.42 ; Other chronic pain G89.29 ; Essential hypertension I10 and Fibromyalgia M79.7 [facility] [address] [place] [address] 05/24/2024 Celeste Alvesence [facility] [address] [facility] [address] [place] [address] 06/25/2024 Celestesera AlvesPricila [facility] [address] [place] [address] 08/01/2024 Celeste Pricila Type 2 diabetes mellitus with peripheral neuropathy E11.42 [facility] [address] [place] [address] 10/11/2024 Celeste Pricila [facility] [address] [place] [address] 12/10/2024 Celeste Pricila Other chronic pain G89.29 [facility] [address] [place] [address] 02/21/2025 Samina Perez [facility] [address] [place] [address] 02/21/2025 Celeste Mcnulty [facility] [address] [place] [address] 03/09/2025 Celeste Mcnulty [facility] [address] [place] [address] 04/08/2025 Celeste Mcnulty Visit for screening mammogram Z12.31 [facility] [address] [place] [address] 05/01/2025 Celeste Mcnulty Breast mass N63.0 Assessments [...] 12/10/2024 Long-term insulin use (ICD-10 - Z79.4) 04/08/2025 Visit for screening mammogram (ICD-10 - Z12.31) 05/01/2025 Breast mass (ICD-10 - N63.0) 03/07/2025 Long-term insulin use (ICD-10 - Z79.4) [...] - G89.29) improved overall, continue duloxetine 08/09/2024 Essential hypertension (ICD-10 - I10) following with cardiology 10/15/2024 Essential hypertension (ICD-10 - I10) following with cardiology, improved today 12/10/2024 Essential hypertension (ICD-10 - I10) following [...] vesicare is already higher dose, due for HVAC MECHANIC exam and encouraged to discuss with them Plan Of Treatment Pending Test Test Name Order Date Ultrasound : Breast, Left 11/02/2021 Ultrasound : Breast, Right 05/01/2025 Mammogram : Right Breast 05/01/2025 Physical Therapy 05/25/2019 Physical Therapy 07/24/2019 Physical Therapy 09/04/2019 M-Miscellaneous Test 08/04/2018 M-Comprehensive Metabolic Panel 08/31/19 [...] mple 05/24/2022 Next Appt Details Provider Name:Celeste Rebekah Kilpatrick ce, 06/17/2025 09:00:00 AM, [address] [place] [facility] [address] [facility], [address], [place], [address], Insurance Providers Payer Name Payer Address Payer Phone Subscriber Number Group Number Insured Name Patient Relationship to Insured Coverage Start Date Coverage End Date [facility] [address] [place] [address] [phone] [id number] Claudia Jean Self - patient is the [...]
== END 2025-05-14 23:59 | disposition home or self-care (01) ==
PROVIDERS: PCP Nurse Practitioner Family; Visit Provider Nurse Practitioner Family
DX: N63.11 Unspecified lump in the right breast, upper outer quadrant (principal); R92.321 Mammographic fibroglandular density, right breast; R92.8 Other abnormal and inconclusive findings on diagnostic imaging of breast; Z98.890 Other specified postprocedural states
CPT/HCPCS: 76641; 77061; 77065; G0279

== ENCOUNTER 2025-08-08 15:54 | Outpatient (CLI) | payer BC, SELFPAY ==
[2025-08-08 16:27] LABS: Hematocrit 39.8 % (37.0-47.0); Hemoglobin 12.7 g/dL (12.2-16.2); Immature Granulocytes % 0.1 %; Mean Corpuscular HGB Conc 31.9 g/dL (31.8-35.4); Mean Corpuscular Hemoglobin 25.6 pg (27.0-31.2); Mean Corpuscular Volume 80.1 fl (81-99); Nucleated Red Blood Cells % 0 %; Platelet Count 370 K/mm3 (142-424); Red Blood Count 4.97 M/mm3 (4.20-5.40); Red Cell Distribution Width-SD 44.0 fL; White Blood Count 6.7 K/mm3 (4.8-10.8)
[2025-08-08 17:03] LABS: Albumin Level 4.7 g/dl (3.5-5.0); Chloride 92 mmol/L (98-107); Potassium 3.3 mmoL/L (3.5-5.1); Sodium 137 mmol/L (136-145)
[2025-08-08 17:06] LABS: Alanine Aminotransferase 15 U/L (12-78); Albumin/Globulin Ratio 1.3 (1.1-1.8); Alkaline Phosphatase 82 U/L (38-126); Amylase 44 U/L (30-110); Anion Gap 13.3 mEq/L (5-15); Aspartate Amino Transferase 27 U/L (14-36); Bilirubin,Total 1.1 mg/dl (0.2-1.3); Blood Urea Nitrogen 17 mg/dl (7-17); Calcium 9.5 mg/dl (8.4-10.2); Carbon Dioxide 35 mmol/L (22.0-30.0); Creatinine,Serum 0.90 mg/dl (0.52-1.04); Estimated Glomerular Filt Rate 64 ml/min (>60); GFR (African American) 78 ML/MIN (>60); Globulin 3.5 g/dL (1.3-3.2); Glucose 130 mg/dl (74-100); Total Protein,Serum 8.2 g/dl (6.3-8.2)
[2025-08-08 17:07] LABS: Lipase 80 U/L (23-300)
== END 2025-08-08 23:59 | disposition home or self-care (01) ==
LOC: LAB 15:55
PROVIDERS: PCP Nurse Practitioner Family; Visit Provider Nurse Practitioner Family
DX: R11.2 Nausea with vomiting, unspecified (principal)
CPT/HCPCS: 36415; 80053; 82150; 83690; 85025